=== PATIENT | female | born 1995 | race African-American/Black ===

== ENCOUNTER 2024-01-29 18:21 | Emergency (ER) | payer BC, SELFPAY ==
[2024-01-29 18:28] VITALS: BP 149/95
[2024-01-29 18:51] LABS: % Basophils 0.2 % (0-2); % Eosinophils 0.1 % (0-6); % Immature Granulocytes 0.3 % (0-0.5); % Lymphocytes 11.3 % (20.5-51.1); % Monocytes 6.8 % (1.7-9.3); % Neutrophils 81.3 % (42.2-75.2); Absolute Lymphocytes 1.4 10^3/uL (1.2-3.4); Absolute Monocytes 0.8 10^3/uL (0.1-0.6); Hemoglobin 11.3 g/dL (12.0-16.0); Mean Corp Hgb Conc. 33.2 g/dL (33.0-37.0); Mean Corpuscular Hgb 24.9 pg (27.0-31.0); Mean Corpuscular Volume 75.1 fL (81.0-99.0); Mean Platelet Volume 9.7 fL (7.4-10.4); Nucleated Red Blood Cells % 0 %; Platelet Count 311 10^3/uL (130-400); Red Blood Cell Count 4.53 10^6/uL (4.20-5.40); Red Cell Dist. Width 15.5 % (11.5-14.5); White Blood Cell Count 12.3 10^3/uL (4.8-10.8)
[2024-01-29 19:05] LABS: HCG, Serum Qualitative Screen Negative
[2024-01-29 19:12] LABS: ALT (SGPT) 20 U/L (0-35); AST (SGOT) 27 U/L (14-36); Albumin 4.7 g/dl (3.5-5.0); Alkaline Phosphatase 104 U/L (38-126); Blood Urea Nitrogen 17 mg/dl (7-17); Calcium 9.8 mg/dl (8.4-10.2); Carbon Dioxide 27 mmol/L (22-30); Chloride 93 mmol/L (98-107); Glucose 279 mg/dl (70-99); Lipase 85 U/L (23-300); Sodium 135 mmol/L (135-145); Total Protein 7.4 g/dl (6.3-8.2); eGFR > 60.00
[2024-01-29 20:43] VITALS: BP 127/89
--- NOTE | 2024-01-29 21:57 | ED.GENMED ---
History of Present Illness
General
Chief Complaint: Abdominal Pain
Source: patient
Exam Limitations: none
Time Seen by Provider: 01/29/24 20:59
History of Present Illness
History of Present Illness:
This is a 28 year old female that comes in with c/o vomiting. States that she has been vomiting since . States that she has left sided abd pain. States that she had chills, some SOB, abd pain, headache. Denies any fever, chest pain,
diarrhea, dizziness, urinary burning.
Past History
Past History
ED Past Medical History: IDDM, Psychiatric (Anxiety) and Other (Gastritis)
ED Past Surgical History: Other (Adenoidectomy)
Social History
Tobacco: Non-smoker
Alcohol: Occasional
Drug: Marijuana (daily)
Personal:
Living: with family
Employment: Employed
Family History
Family History: Diabetes
Review of Systems
Review of Systems
All Other Systems: ROS reviewed and negative except as documented in HPI and ROS
Constitutional: Reports chills; Denies fever
EENT: Reports no symptoms
Respiratory: Reports trouble breathing (Slight)
Cardiac: Reports no symptoms
ABD/GI: Reports abdominal pain, nausea and vomiting; Denies diarrhea
: Reports no symptoms; Denies dysuria, frequency or urgency
Musculoskeletal: Reports no symptoms
Skin: Reports no symptoms
Neurological: Reports headache; Denies dizzy
Psychiatric: Reports no symptoms
Phy Exam
General Physical Exam
General Presentation: no apparent distress
General age: appears stated age
General Skin: warm and dry
General Habitus: normal
General Mental: alert
General Hydration: appears well hydrated
ENT Exam
ENT Exam: TM's normal, pharynx normal and neck supple
Eye Exam
Eye Exam: EOMI
Cardiovascular Exam
Cardiovascular Exam: regular rate/rhythm, no edema, no murmur and normal peripheral pulses
Pulmonary Exam
Pulmonary Exam: lungs clear, no respiratory distress, no rales, chest non tender, no crackles, no rhonchi, no wheezing and no cough
Gastrointestinal Exam
Gastrointestinal Exam: normal bowel sounds, soft, no organomegaly, no pulsatile mass, non distended and tender (left sided abd tenderness with palpation)
Musculoskeletal Exam
Musculoskeletal Exam: full ROM and no edema
Skin Exam
Skin Exam: normal color, warm/dry, no rash and no petechia
Psychiatric Exam
Psychiatric Exam: normal mood/affect
Course
Orders/Labs/Results
Orders:
Orders
01/29/24 18:30
Test Result ONCE
01/29/24 18:42
Complete Blood Count/With Diff Urgent
Comprehensive Metabolic Panel Urgent
HCG, Serum Qualitative Screen Urgent
Comment: Notify provider if positive test present
Lipase Urgent
01/29/24 21:56
0.9% Sodium Chloride 1000 ml [Nss] 1,000 ml IV BOLUS
Iohexol [Omnipaque] See Protocol PO NOW STA
Ketorolac [Toradol] 30 mg IV NOW STA
US Pelvis W Transvag Combined Urgent
Reason For Exam: right lower abd pain
01/29/24 21:57
Urinalysis Reflex To Culture Urgent
Date Specimen was Collected: 01/30/24
Time Specimen was Collected: 01:05
Ondansetron Injectable [Zofran] 4 mg IV NOW STA
01/29/24 22:23
COVID-19 Antigen Urgent
Source: Nasal Swab
01/30/24 00:00
CT Abd/pel W Iv And Oral Contr Urgent
Reason For Exam: Right lower abd pain
01/30/24 01:08
Urine Microscopic Reflex Cult Urgent
Urine Culture Urgent
SHARONA Source: U
Specimen Description:
Date Specimen was Collected: 01/30/24
Time Specimen was Collected: 01:05
Abnormal Lab Results
01/29/24 01/30/24
18:42 01:08
WBC 12.3 H 10^3/uL
(4.8-10.8)
Hgb 11.3 L g/dL
(12.0-16.0)
Hct 34.0 L %
(37.0-47.0)
MCV 75.1 L fL
(81.0-99.0)
MCH 24.9 L pg
(27.0-31.0)
RDW 15.5 H %
(11.5-14.5)
Absolute Neuts (auto) 10.0 H 10^3/uL
(1.4-6.5)
Absolute Monos (auto) 0.8 H 10^3/uL
(0.1-0.6)
Neutrophils % 81.3 H %
(42.2-75.2)
Lymphocytes % 11.3 L %
(20.5-51.1)
Chloride 93 L mmol/L
(98-107)
Glucose 279 H mg/dl
(70-99)
Urine Ketones 2+ A
(Negative)
Ur Occult Blood Reflex 1+ A
(Negative)
Urine RBC 3-6 A /HPF
(0-2)
Urine Bacteria (Reflex) Moderate A
(Negative)
Urine Albumin (Reflex) 1+ A
(Neg - Trace)
01/29/24 18:42
01/29/24 18:42
Leukocytosis, H/H slightly low. Anemia, Chloride low. Hyperglycemia. lipase 85, HCG negative. COVID negative. Urine is negative for infection.
Vital Signs
Initial and Last Documented VS:
Initial Vital Signs
Temp Pulse Resp BP Pulse Ox
99.2 F 80 16 149/95 100
01/29/24 18:28 01/29/24 18:28 01/29/24 18:28 01/29/24 18:28 01/29/24 18:28
Last Documented Vital Signs
Temp Pulse Resp BP Pulse Ox
98.4 F 65 18 120/68 99
01/30/24 00:49 01/30/24 00:49 01/30/24 00:49 01/30/24 00:49 01/30/24 00:49
MDM/Problems Addressed
Differential Diagnosis Includes:
Diverticulitis, Ruptured ovarian cyst. Cyclical vomiting
MDM/Problems Addressed:
This is a 28 year old female that comes in with c/o vomiting since . States that she also has left sided abd pain.
will check labs. US pelvis and get CT if needed. Will given IV fluids, urine and Medicate for pain.
Back into see patient. Explained that her Ultrasound and CT scan are normal. Patient blood work shows some anemia. Explained that there is what appears to be Cystitis of the bladder that can cause abd pain. Patient to follow up with the family
doctor. Patient to increase her water intake to 8-8oz glasses daily. Return with any concerns.
Chronic conditions affecting care:
Marijuana use
Chronic conditions affecting care: DM
Acute Exacerbation and/or Progression of Chronic Illness: DM
*Radiology
Radiology exam reviewed: radiology read reviewed (US night hawk-Normla appearance of the uterus. Normal endometrial stripe, measuring 5mm in thickness. Normal bilaterl ovaries which contain small physiologic follicles. Both ovaries demonstrate
arterial and venous Doppler flow. No appreciable free fluid or adnexal masses. CT scan- Appearance ), all reviewed NAD by ED Provider (CT cont- diffuse bladder wall thickening, possibly artifactual, but which could be related to UTI/cystitis if
clinically commensurate. Chronic cortical scarring of the right kidney, grossly stable from prior study. Bilateral kidneys are otherwise unremarkable with normal symmetric enhancement. No ) and other (CT cont-no Hydronephrosis. Grossly normal
appendix. No intestinal obstruction or free air. Incidental small probable cyst or hemangioma in the right hepatic lobe. Unremarkable gallbladder, pancreas, and spleen. )
*Pulse Oximetry
Patient hypoxic: no
*EKG
Interpreted by ED Provider?: NA
Rate: EKG- N/A
*Web Ui Designer Interpretation
Rate: Web Ui Designer- N/A
*Critical Care Note
Total Time (30-74mins, 75-104mins- exclusive of procedures): Not Applicable
ED Attending Note
-
Portions of this chart may have been created with voice recognition software.� Occasional wrong word or��sound alike� substitutions may have occurred due to the inherent limitations of voice recognition software.
Discharge Plan
Departure
Patient Disposition: Home (Routine Discharge)
Date of Disposition: 01/30/24
Time of Disposition: 02:05
Patient with high blood pressure during this ER visit?: No
Condition: Good
Covid-19: Negative COVID-19
Discharge Problem:
Abdominal pain
Instructions: Abdominal Pain
Prescriptions:
No Action
albuterol sulfate 1 PUFF HFA aerosol inhaler
1 puff inhalation R QID PRN (Reason: difficulty breathing) Qty: 1 0RF
insulin glargine [Basaglar KwikPen U-100 Insulin] 100 UNIT/ML insulin pen
18 unit SQ HS
insulin aspart U-100 [Novolog FlexPen U-100 Insulin] 300 UNITS/3 ML insulin pen
0 units SC MEALS
ondansetron 4 MG tablet,disintegrating
4 mg PO TIDPRN PRN (Reason: nausea/vomiting) Qty: 12 0RF
prochlorperazine maleate [Compazine] 10 mg tablet
10 mg PO Q8H PRN (Reason: nausea and vomiting) Qty: 10 0RF
ondansetron 4 mg tablet,disintegrating
4 mg PO TIDPRN PRN (Reason: nausea/vomiting) Qty: 20 0RF
ondansetron 4 mg tablet,disintegrating
4 mg PO Q8H PRN (Reason: nausea and vomiting) Qty: 10 0RF
ondansetron 8 mg tablet,disintegrating
8 mg PO TID PRN (Reason: nausea and vomiting) Qty: 30 0RF
promethazine 25 mg tablet
25 mg PO Q6H PRN (Reason: nausea and vomiting) Qty: 20 0RF
ondansetron 4 mg Tablet,Disintegrating
4 mg PO TIDPRN PRN (Reason: nausea/vomiting) Qty: 12 0RF
Referrals:
Jennie Duque CRNP [Family Provider] - Call in 1-3 days for appt
Activity Restrictions/Additional Instructions:
As discussed, your blood work shows that you are anemic. Your white blood cell count is slightly elevated. Your urine is negative for infection and your are negative for COVID. Your Ultrasound and Ct scan are negative for any acute process. Please
follow up with the family doctor for recheck. Please increase your water intake to 8-8oz glasses daily. Tylenol or Ibuprofen for pain. IF YOU HAVE ANY OTHER CONCERNS PLEASE RETURN TO THE EMERGENCY ROOM.
Interventions
Interventions:
*Risk Screen - Suicide Last Done: 01/29/24 22:33
*Neglect/Abuse Screening Last Done: 01/29/24 22:33
EU-Eeuuex-Obomdjzyma Assessment Last Done: 01/29/24 22:33
Discharge Date and Time
Print Language: TURKMEN
[2024-01-29] MEDS: ZOFRAN 4 MG IV (22:17)
[2024-01-29] MEDS: TORADOL 30 MG IV (22:18)
[2024-01-29] MEDS: NSS 1000 IV (22:19)
[2024-01-29] MEDS: OMNIPAQUE 50 ML PO (22:20)
[2024-01-29 22:24] VITALS: BMI 25.4
[2024-01-29 22:25] VITALS: BP 154/99
[2024-01-29 22:58] LABS: COVID-19 Antigen Negative (Negative)
[2024-01-30 00:49] VITALS: BP 120/68
[2024-01-30 01:20] LABS: Urine Albumin 1+ (Neg - Trace); Urine Bilirubin Negative (Negative); Urine Character Clear (Clear); Urine Color Yellow; Urine Glucose Negative (Negative); Urine Ketone 2+ (Negative); Urine Leukocyte Negative (Negative); Urine Nitrite Negative (Negative); Urine Occult Blood 1+ (Negative); Urine Specific Gravity 1.005 (<1.030); Urine Urobilinogen Negative (Neg - 1+); Urine pH 6.5 (5.0-9.0)
[2024-01-30 01:32] LABS: Urine Amorphous Seen; Urine Squamous Cell >30 /LPF (Few)
[2024-01-30 01:33] LABS: Urine Bacteria Moderate (Negative)
[2024-01-30 02:15] VITALS: BP 149/79
== END 2024-01-30 02:16 | disposition home or self-care (01) ==
LOC: EMR 18:21
PROVIDERS: Clinical Nurse Specialist Family Health; Emergency Medicine; EMERGENCY PHYSICIAN Emergency Medicine; FAMILY PHYSICIAN Nurse Practitioner Family
DX: R10.9 Unspecified abdominal pain (principal); E11.65 Type 2 diabetes mellitus with hyperglycemia
CPT/HCPCS: 99285; 96374; 96375; 96361; 74177; 76830; 76856; 80053; 81003; 81015; 83690; 84703; 85025; 87086; 87811; Q9967

== ENCOUNTER 2024-04-11 13:33 | Inpatient (IN) | payer BC, SELFPAY ==
[2024-04-11] VITALS (16 sets, daily range): BP systolic 81–107; BP diastolic 36–62; BMI 25.0; BMI 26.1
[2024-04-11 09:47] LABS: Glucose - Point of Care > 600 mg/dl (70-99)
--- NOTE | 2024-04-11 10:12 | ED.GENMED ---
History of Present Illness
General
Chief Complaint: Blood Sugar Problem
Source: patient and spouse
Exam Limitations: none
Time Seen by Provider: 04/11/24 10:02
Nursing documentation reviewed up to this point in time: agreed with
History of Present Illness
History of Present Illness:
28-year-old female presents emergency department due to nausea vomiting and elevated blood sugar. She is a type I diabetic, and last gave herself an insulin bolus at 8:16 AM. She get results 12 units at that time. No fevers.
Past History
Past History
ED Past Medical History: IDDM, Psychiatric (Anxiety) and Other (Gastritis)
ED Past Surgical History: Other (Adenoidectomy)
Social History
Tobacco: Non-smoker
Alcohol: Occasional
Drug: Marijuana (daily)
Personal:
Living: with family
Employment: Employed
Family History
Family History: Diabetes
Phy Exam
Physical Exam
Physical Exam:
Physical Exam
General: no apparent distress, not acutely ill
Neck: supple. no meningeal signs. normal posterior pharynx
Heart: s1/s2 tachycardia, no murmur. equal radial
pulses.
HEENT: Pupils equal round reactive to light, EOMI, dry mucous membranes
Lungs: no acute respiratory distress. clear bilaterally
Abdomen: normal bowel sounds. not tender. no CVAT
Neuro: alert and oriented. no focal neurological deficits cranial nerves II through XII intact
Skin: no rash
Psychiatric: well kept. interactive and cooperative
Extremities: no edema. no calf tenderness. negative homans. good distal pulses
Course
Orders/Labs/Results
Orders:
Orders
04/11/24
Electrocardiogram (*1) Stat
Comment: DONE EMR
04/11/24 09:29
Electrocardiogram (*1) Urgent
Reason for Study: Chest Pain
EKG- Treatment ONCE
04/11/24 10:04
EKG- Treatment ONCE
0.9% Sodium Chloride 1000 ml [Nss] 1,000 ml IV BOLUS
Pulse Ox/cont/shift [RESP] Stat
Quantity: 1
04/11/24 10:05
Cardiac Monitoring- Treatment ONCE
IV Insert/Care/Rem.- Treatment PRN
04/11/24 10:16
Lactated Ringers [Lr] 1,000 ml IV BOLUS
04/11/24 10:20
0.9% Sodium Chloride 1000 ml [Nss] 1,000 ml IV BOLUS
04/11/24 10:30
B-Hydroxybutyrate Urgent
Complete Blood Count/With Diff Urgent
Comprehensive Metabolic Panel Urgent
Ferritin Urgent
Comment: ADD
Folate Urgent
Comment: ADD
Iron Urgent
Lactic Acid Urgent
Manual Differential Urgent
Total Iron Binding Urgent
Venous Blood Gas Urgent
%Oxygen/Room Air: 100 ra
Vitamin B12 Urgent
Comment: ADD
04/11/24 11:19
Urinalysis Reflex To Culture Urgent
Date Specimen was Collected: 04/11/24
Time Specimen was Collected: 11:13
Urine Microscopic Reflex Cult Urgent
04/11/24 12:02
Insulin Human Regular [Novolin R] 7 units IV NOW STA
04/11/24 12:31
Reg Insulin 100 Units/100 ml [Novolin R Insulin Infusion] 100 units in 100 ml IV NOW
04/11/24 12:43
Add On- LAB Urgent
Tests Added?: ferritin, iron, tibc, folate, b12
04/11/24 12:45
CR Chest - 2 Views Urgent
Comment:
Reason For Exam: sepsis
04/11/24 12:57
COVID-19 Antigen Urgent
Source: Nasal Swab
Blood Culture Urgent
SHARONA Source: Blood/Venous
Specimen Description:
04/11/24 13:06
Hemetest Stools As Directed
04/11/24 13:07
CT Abd/pelvis Wo Iv Cont Urgent
Comment:
Reason For Exam: abd pain sepsis hypotension
Abnormal Lab Results
04/11/24 04/11/24 04/11/24
09:44 10:30 11:19
WBC 32.8 H 10^3/uL
(4.8-10.8)
RBC 3.35 L 10^6/uL
(4.20-5.40)
Hgb 8.6 L g/dL
(12.0-16.0)
Hct 26.8 L %
(37.0-47.0)
MCV 80.0 L fL
(81.0-99.0)
MCH 25.7 L pg
(27.0-31.0)
MCHC 32.1 L g/dL
(33.0-37.0)
RDW 17.4 H %
(11.5-14.5)
MPV 11.2 H fL
(7.4-10.4)
Abs Neuts (Manual) 23.6 H 10^3/uL
(1.4-6.5)
Band Neutrophils 8 H %
(0-3)
Lymphocytes (Manual) 9 L %
(20-51)
Monocytes (Manual) 15 H %
(2-9)
VBG pH 7.31 L
(7.32-7.43)
VBG pCO2 29 L mmHg
(35-48)
VBG pO2 59 H mmHg
(30-50)
VBG HCO3 14.6 L mmol/L
(22-27)
Sodium 129 L mmol/L
(135-145)
Chloride 86 L mmol/L
(98-107)
Carbon Dioxide 13 L* mmol/L
(22-30)
BUN 42 H mg/dl
(7-17)
Creatinine 1.7 H mg/dL
(0.6-1.0)
Glucose 1008 H* mg/dl
(70-99)
Lactic Acid 6.0 H* mmol/L
(0.7-2.0)
AST 37 H U/L
(14-36)
Total Protein 6.0 L g/dl
(6.3-8.2)
Urine Ketones Trace A
(Negative)
Ur Occult Blood Reflex 3+ A
(Negative)
Urine RBC 11-15 A /HPF
(0-2)
Urine Glucose 3+ A
(Negative)
POC Glucose > 600 H* mg/dl
(70-99)
04/11/24 10:30
04/11/24 10:30
Vital Signs
Initial and Last Documented VS:
Initial Vital Signs
Temp Pulse Resp BP Pulse Ox
98.7 F 103 16 97/48 100
04/11/24 09:37 04/11/24 09:37 04/11/24 09:37 04/11/24 09:37 04/11/24 09:37
Last Documented Vital Signs
Temp Pulse Resp BP Pulse Ox
98.7 F 98 25 102/36 100
04/11/24 09:37 04/11/24 11:15 04/11/24 11:15 04/11/24 11:06 04/11/24 10:30
MDM/Problems Addressed
Differential Diagnosis Includes:
Sepsis, hypovolemia, DKA
MDM/Problems Addressed:
28-year-old female with DKA, unclear etiology. Afebrile. No clear source infection. Insulin drip initiated. IV fluids given. Admit to hospitalist, ICU.
Chronic conditions affecting care: DM
Acute Exacerbation and/or Progression of Chronic Illness: DM
*Pulse Oximetry
Patient hypoxic: no
*EKG
Interpreted by ED Provider?: Yes
EKG Intrepretation Date: 04/11/24
EKG Intrepretation Time: 09:33
Interpretation: abnormal
Comparison EKG: changes noted
Heart Rate: 105
Rate: tachycardiac
Rhythm: sinus tachycardia
[place]: right axis deviation
Interval: normal interval
QRS Pattern: normal QRS
Ischemia: no ischemia
*Harpsichord Maker Interpretation
Rate: tachycardiac
Interpretation: abnormal
Heart Rate: 102
Rhythm: sinus tachycardia
*Critical Care Note
Total Time (30-74mins, 75-104mins- exclusive of procedures): 30
comment:
Critical care statement: A total of 30 minutes of critical care time was provided for this patient. This includes management of unstable vital signs, evaluation of the patient at bedside, reviewing the patient's pertinent medical records, discussion
with consultants, review of old EKGs and review of pertinent medical records. This time with separate from time utilized to perform the aforementioned documented procedures
Data Reviewed
Review of Other/Old Records Reveals: Labs (Prior creatinine 0.8 on 01/29/2024)
Source: records
Patient Management
Social determinants of health affecting care: Living situation, Substance abuse (Marijuana) and Strong social support
Discussion with other providers: Hospitalist
Escalation/DeEscalation of care consider admission/obs:
Admit to ICU indicated
ED Attending Note
-
Portions of this chart may have been created with voice recognition software.� Occasional wrong word or��sound alike� substitutions may have occurred due to the inherent limitations of voice recognition software.
Discharge Plan
Departure
Patient Disposition: Admit
Date of Disposition: 04/11/24
Time of Disposition: 12:04
Admit to: ICU
Presentation/result/management discussed w/ accepting MD/DO: Hospitalist
Patient with high blood pressure during this ER visit?: No
Condition: Fair
Discharge Problem:
DKA, type 1, Hyponatremia, KB (acute kidney injury)
Prescriptions:
No Action
Lisinopril
5 mg PO DAILY
Patient Comments:
no ecw or pharmacy records
Patient Own Insulin Pump
0 unit SC .VIA INSULIN LISPRO
Referrals:
Jennie Duque CRNP [Family Provider] -
Interventions
Interventions:
*Risk Screen - Suicide Last Done: 04/11/24 09:37
*General Assessment Last Done: 04/11/24 09:37
*Neglect/Abuse Screening Last Done: 04/11/24 09:37
ED- Fall Risk Assessment Last Done: 04/11/24 10:27
*ED COVID-19 Vaccine History Last Done: 04/11/24 09:37
ED- Neurological Assessment Last Done: 04/11/24 10:27
Discharge Date and Time
Print Language: UKRAINIAN
[2024-04-11] MEDS: NSS 1000 IV (10:20)
--- NOTE | 2024-04-11 10:41 | EDRN ---
NSS bolus started prior to order being d/c'd. Spoke to and will continue NSS then give LR.
[2024-04-11 10:42] LABS: Venous Blood Gas B.E. -10.5 mmol/L (-4 to +4); Venous Blood Gas HCO3 14.6 mmol/L (22-27); Venous Blood Gas pCO2 29 mmHg (35-48); Venous Blood Gas pH 7.31 (7.32-7.43); Venous Blood Gas pO2 59 mmHg (30-50)
[2024-04-11 10:48] LABS: Hematocrit 26.8 % (37.0-47.0); Hemoglobin 8.6 g/dL (12.0-16.0); Mean Corp Hgb Conc. 32.1 g/dL (33.0-37.0); Mean Corpuscular Hgb 25.7 pg (27.0-31.0); Mean Platelet Volume 11.2 fL (7.4-10.4); Platelet Count 251 10^3/uL (130-400); Red Blood Cell Count 3.35 10^6/uL (4.20-5.40); Red Cell Dist. Width 17.4 % (11.5-14.5)
[2024-04-11 11:24] LABS: ALT (SGPT) 27 U/L (0-35); AST (SGOT) 37 U/L (14-36); Alkaline Phosphatase 109 U/L (38-126); Blood Urea Nitrogen 42 mg/dl (7-17); Calcium 8.4 mg/dl (8.4-10.2); Chloride 86 mmol/L (98-107); Estimated Creatinine Clearance 43 ml/min; Potassium 5.1 mmol/L (3.5-5.1); Sodium 129 mmol/L (135-145); Total Bilirubin 0.8 mg/dl (0.2-1.3); eGFR 41.89
[2024-04-11 11:26] LABS: Carbon Dioxide 13 mmol/L (22-30); Glucose 1008 mg/dl (70-99)
[2024-04-11 11:34] LABS: Urine Albumin Negative (Neg - Trace); Urine Bilirubin Negative (Negative); Urine Character Clear (Clear); Urine Color Yellow; Urine Glucose 3+ (Negative); Urine Ketone Trace (Negative); Urine Leukocyte Negative (Negative); Urine Nitrite Negative (Negative); Urine Occult Blood 3+ (Negative); Urine Urobilinogen Negative (Neg - 1+)
[2024-04-11 11:36] LABS: White Blood Cell Count 32.8 10^3/uL (4.8-10.8)
[2024-04-11 11:37] LABS: Absolute Neutrophils -Man Diff 23.6 10^3/uL (1.4-6.5); Band Neutrophils 8 % (0-3); Lymphocytes 9 % (20-51); Monocytes 15 % (2-9); Myelocytes 1 % (-); Segmented Neutrophils 64 % (42-75)
[2024-04-11 11:38] LABS: Total Cells Counted 100
[2024-04-11 11:44] LABS: Normal RBC Morphology Yes; Platelets Checked Yes
[2024-04-11 12:11] LABS: Urine Amorphous Seen
[2024-04-11 12:13] LABS: Urine White Cell 0-2 /HPF (0-5)
[2024-04-11] MEDS: NOVOLIN R 7 UNITS IV (12:17)
[2024-04-11] MEDS: LR 1000 IV (12:30)
[2024-04-11] MEDS: NOVOLIN R INSULIN INFUSION 100 IV (12:31)
--- NOTE | 2024-04-11 12:41 | HPS.HSE ---
Addendum entered and electronically signed by MAGY Jordan 04/11/24 20:24:
Acute infectious colitis
Diarrhea resolved Tuesday evening on 04/09/2024
IV vancomycin ,IV Zosyn
--Would check stool studies if diarrhea returns--
CT abdomen pelvis:
Suspected diffuse colonic wall thickening greatest at the cecum and ascending colon.
Severe hepatic steatosis
Addendum entered and electronically signed by MAGY Jordan 04/11/24 13:24:
IV FLUIDS
-IV NSS WITH 20 KCL at 150 cc/hr per inuslin protocol
Original Note:
Family Physician
-
Family Physician: MAGY Layton
Chief Complaint
-
vomiting , confusion ,headache, blurry vision, dry mouth, increased thirst, urinary frequency, myalgias including entire body, hips
History of Present Illness
28-year-old female from home complaining of 2 days of vomiting along with her OmniPod alarming high. She also reports headache, blurry vision, dry mouth, increased thirst, urinary frequency, myalgias including entire body and mainly in her hip
areas. She has generalized abdominal pain increased with palpation. She also reports she had slimy diarrhea 7 episodes on Tuesday and 7 episodes on Tuesday then that resolved and she started vomiting. She and her partner went out on Tuesday ate at a
[place] buffet but no raw fish or seafood, Tuesday she had a buffalo chicken cheese steak. Her partner denies any of the same symptoms. She also reports she has been on 5 mg of lisinopril for approximately 1.5 years , Although she did not report
this in her January emergency room visit. There is no family history of colitis, IBS, Crohn's, colon disease.
She is awake and alert however forgetting conversations during my exam asking repetitive questions. She denies fever, chills, chest pain, palpitations, shortness breath, cough, diarrhea, rash. Her partner is at bedside with her confirming the
symptoms and complaints are correct. She tells me she replaced her OmniPod this morning due to it alarming high. When I reviewed her alarm it appears she has received approximately 16 units of insulin total since this a.m. Her typical rate is
0.7/h then drops down to 0.5/h. She has been a diabetic since age 18, with history of DKA admissions, smokes occasional marijuana jimenez has occasional alcohol, iron deficiency anemia, hyponatremia, cyclical vomiting with history of marijuana use
Medical History
Past Medical History
Past Medical History: Reports Other
Additional Past Medical History:
DM type I since age 18
Cyclical vomiting with history of marijuana use
Iron deficiency anemia
Anxiety
HTN
Hx ruptured ovarian cyst 12/23/2020
History of heavy menses
Past Surgical History: Reports Other
Additional Past Surgical History:
Adenoidectomy age 5
Social History
Alcohol: Occasional (Last drink was on Tuesday)
Drug: Marijuana (Daily smokes marijuana jimenez)
Personal: Partner (Female at bedside)
Living: With Family
Employment: Employed
Family History
Family History: Other (No family history of colitis, gas, Crohn's)
Allergies / Home Medications
Allergies reflects when Allergies were last updated in [facility].
Home Medications with original date entered in [facility]
Allergy/Medication List:
Allergies
Allergy/AdvReac Type Severity Reaction Status Date / Time
nickel Allergy Unknown Rash Verified 04/11/24 09:41
Home Medications
Lisinopril 5 mg PO DAILY Blood Pressure 04/11/24
Patient Own Insulin Pump 0 unit SC .VIA INSULIN LISPRO Diabetes 04/11/24
Review of Systems
-
History Source: Patient and Family (Female partner at bedside)
A 12 point ROS was completed and negative except as noted: Yes
Constitutional: Reports Other (Patient was confused asking repetitive questions); Denies Fever or Chills
EENT: Reports Other (Dry mouth); Denies Sore Throat
Respiratory: Denies Cough or Trouble Breathing
Cardiac: Denies Chest Pain, Diaphoresis, Palpitations or Syncope
Abdomen/GI: Reports Abdominal Pain (Generalized), Nausea, Vomiting and Diarrhea (Diarrhea with slimy like mucus brown in color 7 episodes a day Tuesday and Tuesday); Denies Constipated, Bloody Stools, Black Stools or Anorexia
: Reports Frequency; Denies Dysuria, Flank Pain, Incontinence, Difficulty Voiding, Urgency or Dark Urine
Musculoskeletal: Reports Muscle Pain (Generalized body aches)
Skin: Denies Itching or Rash
Neurological: Reports Headache; Denies Dizzy, Weakness or Numbness
Endocrine: Reports Polyuria and Polydipsia
Hematologic/Lymphatic: Denies Bleeding
Psych: Reports Anxiety
Physical Exam
Vital Signs
Vital Signs
Temp Pulse Resp BP Pulse Ox
98.7 F 98 25 102/36 100
04/11/24 09:37 04/11/24 11:15 04/11/24 11:15 04/11/24 11:06 04/11/24 10:30
Physical Exam
General: Conversant, Pain (Generalized abdominal) and Other (Anxious with confusion yes and repetitive questions); No Chills
HEENT: NormoCephalic, Anicteric, Moist mucous membranes, PERRLA, [place] Conjunctivae, No Ptosis and Neck Nontender
Respiratory: Clear; No Wheezes, Rales or Rhonchi
Cardiac: S1/S2 and Regular Rhythm; No Murmur, Rub, Gallop or Peripheral Edema
Breast: Deferred by me
GI: Soft, Non Distended, Normal Bowel Sounds, Tender (Generalized) and No Hepatosplenomegaly
Rectal: Deferred by Provider
Genito-urinary: Deferred by me
Musculoskeletal: No Clubbing, No Cyanosis and No Edema
Skin: Warm and Dry; No Rash or Jaundice
Neuro: Awake, Alert, Oriented (X 3 but was asking repetitive questions was extremely anxious rolling over from [id number] in bed), No Motor Deficits, Cranial Nerves Intact and No Sensory Deficits; No Slurred Speech, Facial Droop, Tremors or Sedated
Psych: Anxious
Laboratory Results
-
04/11/24 10:30
04/11/24 10:30
Laboratory Results
Lactic Acid 6.0 mmol/L (0.7-2.0) H* 04/11/24 10:30
Total Bilirubin 0.8 mg/dl (0.2-1.3) 04/11/24 10:30
AST 37 U/L (14-36) H 04/11/24 10:30
ALT 27 U/L (0-35) 04/11/24 10:30
Alkaline Phosphatase 109 U/L (38-126) 04/11/24 10:30
Data Reviewed
-
Lab Data: Labs Reviewed by me
Impression/Plan
-
Impression/plan:
Admit to ICU
#DKA
# Acute metabolic acidosis
# Type I diabetic since age 18
BS 1008, lactic acid 6, anion gap 30
-IV insulin 7 units given in ER, START INSULIN GTT with protocol
-Lactated Ringer's 1000 bolus given
-2 L NSS given in ER, then IV NSS 150 cc/hr
-Consult machinist
-Patient's OmniPod was removed at 12:26 PM in the ER from her left buttocks
#Sepsis unclear etiology poss intra-abdominal process given diarrhea with reported mucus-like stool
#Hx of reactive leukocytosis
WBC 32.8, bands 8%, 90 8.7F, HR 98, 104/36
-UA negative
--Check CXR
-COVID swab
-CT abd/ pelvis without contrast due to vomiting /kb
-IV Vanco, Iv Zosyn
#Acute hypotension multifactorial sepsis/vomiting
85/32> 102/36 x 1 L NSS
Total 1000 LR in ER and additional 2 L NSS
-Continue IV NSS 150 cc/h
consider iv levophed if BP not improving with Map>60
#KB due to hypovolemia
Creat 1.7 baseline 0.8
Total 1000 LR in ER and additional 2 L NSS
-Continue IV NSS 150 cc/h
-HOLD LISINOPRIL 5mg daily
follow bmp
#Hyponatremia
NA 129
#Hx cyclical vomiting with history of marijuana use
#Marijuana use smokes marijuana at jimenez
- cessation advised
#Iron deficiency anemia
Hgb 8.6, MCV 80
check iron panel , b12 folate stool occcult
Dvt proph
- sq heparin
full code
--- NOTE | 2024-04-11 13:12 | W.PN.UPDATE ---
Update Note
Progress Note Update
This is an addendum to the H&P written by Pia Fernandez on 04/11/2024. Patient seen and examined independently with BANDING MACHINE OPERATOR.
28-year-old female past medical history of type 1 diabetes at age 18, history of heavy menses, here for diabetic ketoacidosis. With abdominal pain/vomiting and diarrhea concerning for potential GI infection and sepsis. Labs show blood sugar of
thousand, severe anion gap metabolic acidosis, KB.
Belly very tender diffusely.
Treated with normal saline with 20 of potassium. Insulin drip. NPO.
Hemoglobin down from 11.3-8.6 within the past 2 months consistent with iron deficiency anemia. She does have a history of heavy menses. Check fecal occult. Check iron studies, B12 and folate.
[2024-04-11 13:20] LABS: Glucose - Point of Care > 600 mg/dl (70-99)
[2024-04-11 13:29] LABS: COVID-19 Antigen Negative (Negative)
[2024-04-11 13:51] LABS: B-Hydroxybutyrate 4.86 mmol/L (0.02-0.27); Iron 33 ug/dl (37-170); Percent Saturation 9 % (20-50); Total Iron Binding Capacity 357 ug/dl (265-497)
--- NOTE | 2024-04-11 13:59 | CON.INTV ---
Consultation
Consultation Request
Date/Time Consultation Requested: 04/11/2024-2 PM
Date/Time Consultation Performed: 04/11/2024-2:30 PM
Requesting Provider: Hospitalist
Performing Provider: Dr. Boswell
Reason for Consultation: DKA/critical care management
Medical History
-
Chief Complaint: DKA
History of Present Illness:
28-year-old insulin-dependent diabetic female presented with nausea, vomiting, blurry vision, dry mouth, increased thirst, urinary frequency, myalgias and noted to be in DKA requiring ICU admission-sheet rock installer consulted for DKA/critical care
management 04/11/2024.
Past Medical History
Past Medical History: None (Diabetes-type I since age 18. Cyclical vomiting. Marijuana use. Anemia-iron deficiency. Hypertension. Anxiety. Ovarian cyst rupture 12/2020. Heavy menses. Adenoidectomy age 5.)
Social History
Alcohol: Occasional
Drug: Marijuana (Smokes marijuana jimenez)
Personal: Partner
Occupational Exposures: No known asbestos exposure
Environmental Exposures: No known tuberculosis exposure
Family History
Family History: Reviewed & Not Pertinent
Allergies / Home Medications
Allergies
Allergy/AdvReac Type Severity Reaction Status Date / Time
nickel Allergy Unknown Rash Verified 04/11/24 09:41
Home Medications
�Medication �Instructions �Recorded �Confirmed �Last Taken �Type
Lisinopril 5 mg PO DAILY Blood Pressure 04/11/24 04/11/24 04/08/24 10:00 History
Patient Own Insulin Pump 0 unit SC .VIA INSULIN LISPRO 04/11/24 04/11/24 04/11/24 History
Diabetes
Review of Systems
-
Unable to Obtain full review of systems at this time due to: Other (Per HPI)
Vitals / Labs / Diagnostic Testing
Vital Signs
Temp Pulse Resp BP Pulse Ox
98.7 F 98 25 102/36 100
04/11/24 09:37 04/11/24 11:15 04/11/24 11:15 04/11/24 11:06 04/11/24 10:30
Lab Data
04/11/24 10:30
04/11/24 10:30
Diagnostic Testing:
Physical Exam
-
Exam:
Well-nourished and well-developed in no apparent distress
HEENT-atraumatic, normocephalic
Neck-supple, no JVD, no bruit
Heart-regular rate and rhythm-no murmurs, rubs or gallops
Chest-clear to auscultation, no wheezes, crackles
Back-no tenderness
Abdomen-soft, nontender, nondistended, no hepatosplenomegaly
Extremities-no cyanosis, clubbing, edema and good peripheral pulses
Integument-intact, no rashes, lesions or ecchymosis
Neurology-alert and oriented, nonfocal motor and sensory exam
Assessment
-
28-year-old insulin-dependent diabetic female presented with nausea, vomiting, blurry vision, dry mouth, increased thirst, urinary frequency, myalgias and noted to be in DKA requiring ICU admission-sheet rock installer consulted for DKA/critical care
management 04/11/2024.
Diabetic ketoacidosis
Initial blood sugar-1008
Anion gap-30
VBG 04/11/24-20 7.31
Leukocytosis
Qkoagb-eqegmubmnu-wwqdlbuvjc 8.6
Anion gap metabolic acidosis
Lactic acidosis
KB-suspect prerenal
Diarrhea
Sepsis
Conditions present prior to admission:
Diabetes-type I since age 18.
Cyclical vomiting.
Marijuana use.
Anemia-iron deficiency.
Hypertension.
Anxiety.
Ovarian cyst rupture 12/2020.
Heavy menses.
Adenoidectomy age 5
Plan
Patient will be admitted to medical intensive care unit for close monitoring
Supplemental oxygen as needed
Incentive spirometry
Aspiration precautions
Monitor blood sugar
Monitor anion gap
Insulin drip
Check A1c if not done in the last 3 months
Diabetic nurse practitioner consultation
Intravenous fluid resuscitation
Monitor potassium closely and replace appropriately
Monitor renal function
If renal function does not improve with fluid hydration then nephrology consultation
Tylenol as needed for pain
She was requesting Toradol-would avoid with renal failure
Morphine if needed
Check cultures
Empiric antibiotics-vancomycin and Zosyn initiated
Serial abdominal exam
CT abdomen and pelvis-pending
Follow leukocytosis
Marijuana smoking cessation counseling ongoing
DVT prophylaxis
Early nutrition
Early mobilization
Critical care statement: A total of 55 minutes of critical care time was provided for this patient today. This includes management of unstable vital signs, insulin drip management, evaluation of the patient at bedside, reviewing the patient's
pertinent medical records including radiographs, microbiology, laboratory evaluations, and discussion with primary team, consultants, charge nurse, and critical care nursing.
Diagnostic data:
Chest x-ray 08/16/2021-NAD
Chest x-ray 04/11/2024-NAD
CT abdomen and pelvis 01/30/2024-diffuse wall thickening of the urinary bladder may be related to nondistention or cystitis, no intestinal obstruction, bowel inflammation, nephrolithiasis, hydronephrosis, cholecystitis or abscess formation
Data Reviewed
-
EKG: Report reviewed by me
Radiology: Image personally visualized and interpreted and Report reviewed by me
CT Scan: Report reviewed by me
Medical Tests (Nuc Med, Echo etc): Report reviewed by me
Labs: Labs reviewed by me
Old Records: Reviewed
Critical Care Time (in minutes): 55
--- NOTE | 2024-04-11 14:47 | W.PN.INTV ---
Documented by User: Tiara Montoya MD, Resident 04/11/24 16:21
Today's Communication / Plan
Recommendations
IV normal saline with 20 KCl per DKA protocol
Insulin gtt
Monitor BMPs
Broad spectrum antibiotics
CT ab/pelvis pending
Assessment
-
28-year-old female with past medical history of insulin-dependent type 1 diabetes presented to the ED with nausea, vomiting, diarrhea, dry mouth, blurry vision, headache, increased thirst, increased frequency of urination, heartburn, body aches all
over, and tingling all over. She has an OmniPod which set off an alarm this morning. Appears she received approximately 16 units of insulin total this am. Typical rate 0.7/hr then drops down to 0.5/hr. She had about 7 episodes of diarrhea on Tuesday
and 7 episodes on Tuesday but resolved. She described the diarrhea as slimy or mucousy 'like an orbie cut in half.' On Tuesday she started throwing up, too many times to count. Stopped around 4:30 AM. Since then she has not eaten anything. 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 She ate at a [employer] buffet on Tuesday and had a buffalo cheesecake on Tuesday, but her partner had no similar symptoms. She
thought that some of her issues may be related to her high blood pressure and wanted to schedule an emergency doctors appointment with her primary provider MAGY Duque, but her mom advised her to come to the ED instead. Her grain miller helper
is Dr. Marcela Maki.
Labs revealed blood glucose 1008, anion gap 30, lactic acid 6, WBC 32.8, hemoglobin 8.6. Patient received 7 units of insulin in ED, started on insulin drip, 1000 mL bolus of LR, 2x 1000 mL bolus of normal saline, and started on Zosyn and vanc.
Impression:
#DKA
#Metabolic acidosis
#Type 1 Diabetes
BG 1008
AG 30
LA 6
#Sepsis secondary to GI source
#leukocytosis with bandemia
#Hypotension
#Hyponatremia
#Anemia
#KB
Conditions present prior to admission: Type 1 diabetes, Cannabis hyperemeses syndrome , Ruptures ovarian cyst 12/23/2020, hx Heavy mensus , OFELIA, HTN, anxiety
Plan:
Respiratory
-Keep SpO2 >92% - supplemental O2 as needed
-Aspiration precautions
-pCO2 compensated for metabolic acidosis
-Repeat VBG in am
Endocrinology
-DKA on type 1 DM
-Metabolic acidosis
-BG 1008, AG 30, LA 6
-Admit to ICU
-NPO
-IV NSS with 20 KCL at 150 cc/hr per insulin protocol
-Keep urine output >50 cc/hr
-Regular insulin 7 unit bolus in ED -> insulin gtt 7 U/hr
-Adjust gtt to decrease glucose by 75-100 mg/dL per hr
-When HCO3 >16 or AG <16, add D5W + CUH05oys/L to IVF
-Accucheck Q1hr
-BMP q4hr
-EKG in am
-Replete electrolytes as needed
-Tylenol for pain. Consider hydromorphone if severe rather than morphine due to KB
-PRN zofran for N/V
-Keep SpO2 >92%
-Strict I&O
-If BG <100, use D10% at 50cc/hr while on insulin gtt
-Change to SQ insulin when AG is normal. D/C insulin IV gtt 2 hours after the first SQ dose
-Check hgA1c
Cardiovascular
-Sepsis with unclear etiology likely GI with hx mucous-y stools/diarrhea
-Leukocytosis with bands
-Hypotension
-WBC 32.8, Neutrophil bands 8.6, HR 98, BP 104/36
-UA (-), Covid (-), Chest x-ray no acute cardiopulm etiologies
-CT abd/pelvis without contrast due to KB and vomiting pending
-Vanco and zosyn
-Monitor WBC
-1000 LR in ED and 2L NSS
-IV fluids per DKA protocol
-t/c levophed if BP not improving
-Hold lisinopril
-Iron deficiency anemia
-hg 8.6, MCV 80
-Check hemeoccult blood
-Iron panel pending
-Hx of heavy periods
-Transfuse for hg <7
Renal
-KB likely 2/2 hypovolemia
-Cr 1.7, baseline 0.8
-Hold lisinopril
-Fluids per DKA protocol
-Avoid NSAIDs/nephrotoxic agents
GI
-Ab/pelvic CT pending
-Diffuse abdominal tenderness
-PRN zofran for N&V
-Hemeoccult blood test
-DVT SQ heparin
-NPO
-Full Code
-
-
Subjective Dataa
Subjective Data
Date of Service:
Date of Service: April 11, 2024
Review of Systems
General: Fever (n), Sweats (n), Chills, Pain and Elevated Blood Sugar
Cardiopulmonary: Dyspnea (n), Chest Pain (n) and Edema (n)
GI: Abdominal Pain, Nausea, Vomiting and Diarrhea
Neuro: Weakness and Other (tinging)
Objective Data
Data Reviewed
Vital Signs / I&O / Oxygen:
Vital Signs
Temp Pulse Resp BP Pulse Ox
98.7 F 98 25 102/36 100
04/11/24 09:37 04/11/24 11:15 04/11/24 11:15 04/11/24 11:06 04/11/24 10:30
SaO2 100
Physical Exam
General: Comfortable
HEENT: Normocephalic
Cardiovascular: S1-S2 and Other (Tachy)
Respiratory: Clear
GI: Soft, Non Distended, Tender (Diffusely tender) and Normal Bowel Sounds
Neurology: AO x 3
Skin: Warm
Labs/Micro/Reports
Lab Data
04/11/24 10:30

Documented by User: Alexis Boswell MD 04/11/24 16:21
Today's Communication / Plan
Recommendations
IV normal saline with 20 KCl per DKA protocol
Insulin gtt
Monitor BMPs
Broad spectrum antibiotics
CT ab/pelvis pending
I reviewed this patients case independently and in conjunction with the resident. I personally examined the patient. Patient's complex medical history, laboratory evaluations, events over the last 24 hours, radiographs, microbiological data were
all personally reviewed.
Agree with documented assessment and plan
Alexis Boswell MD, [facility], [facility]
[2024-04-11] MEDS: ZOSYN 50 IV ×2 (14:48→21:31)
[2024-04-11 15:01] LABS: Blood Urea Nitrogen 49 mg/dl (7-17); Calcium 7.5 mg/dl (8.4-10.2); Carbon Dioxide 10 mmol/L (22-30); Chloride 93 mmol/L (98-107); Estimated Creatinine Clearance 41 ml/min; Potassium 3.9 mmol/L (3.5-5.1); Sodium 129 mmol/L (135-145); eGFR 39.11
[2024-04-11 15:13] LABS: Glucose 766 mg/dl (70-99)
[2024-04-11 15:15] LABS: Glucose - Point of Care > 600 mg/dl (70-99)
[2024-04-11 15:24] LABS: HCG, Serum Qualitative Screen Negative
[2024-04-11] MEDS: VANCOCIN 540 MG IV (15:31)
[2024-04-11 16:05] LABS: Glucose 676 mg/dl (70-99)
[2024-04-11] MEDS: NSS with KCL 20 MEQ 1000 IV ×2 (16:08→21:32)
[2024-04-11] MEDS: TYLENOL 650 MG PO ×2 (16:09→21:29)
--- NOTE | 2024-04-11 16:25 | PHA.VAN.IN ---
Assessment
- Assessment
Renal Function: Appears elevated from baseline (~0.7)
Concomitant Antimicrobials: piperacillin/tazobactam
Plan
- Plan
Initial / Loading Dose: vanc 2000mg administered in ED @ 1531
Maintenance Regimen: dosing by level
Monitoring: random level 04/12 0600
Pharmacokinetics Vancomycin I
- -
Patient Age: 28
Patient Sex: Female
Vancomycin Day #: 1
Indication: Gi / Intra-Abdominal
Requesting Provider: Pia Fernandez
Pertinent Antimicrobial Allergies:
no pertinent antimicrobial allergies
Height / Weight:
Height 5 ft 4 in
Actual Weight 68.9 kg
- Vital Signs / Lab Results
Temp Pulse Resp BP Pulse Ox
99.1 F 108 28 99/44 100
04/11/24 16:19 04/11/24 15:32 04/11/24 15:32 04/11/24 15:32 04/11/24 15:32
Lab Results - Hematology
04/11/24
10:30
WBC 32.8 H
Band Neutrophils 8 H
Lab Results - Chemistry
04/11/24 04/11/24
10:30 14:25
BUN 42 H 49 H
Creatinine 1.7 H 1.8 H
Estimated Creat Clear 43 41
Albumin 4.0
04/11/24
10:30
Lactic Acid 6.0 H*
Lab Results - Urine
04/11/24
11:19
Urine Nitrite (Reflex) Negative
Leukocyte Esterase Rfl Negative
Urine WBC (Reflex) 0-2
Ur Squamous Epith Cells 3-5
[2024-04-11 16:30] LABS: Ferritin 12.7 ng/ml (6.24-137)
[2024-04-11 17:01] LABS: Folate 10.5 ng/ml (2.76-20)
[2024-04-11 17:20] LABS: Glucose - Point of Care 562 mg/dl (70-99)
[2024-04-11 17:59] LABS: Vitamin B12 498 pg/ml (239-931)
[2024-04-11 18:06] LABS: Glucose - Point of Care 535 mg/dl (70-99)
[2024-04-11 18:21] LABS: Blood Urea Nitrogen 55 mg/dl (7-17); Calcium 7.6 mg/dl (8.4-10.2); Carbon Dioxide 20 mmol/L (22-30); Chloride 99 mmol/L (98-107); Estimated Creatinine Clearance 46 ml/min; Glucose 497 mg/dl (70-99); Potassium 3.8 mmol/L (3.5-5.1); Sodium 133 mmol/L (135-145); eGFR 45.05
--- NOTE | 2024-04-11 19:00 | PTCARENOTE ---
Pt admitted to ICU bed 3365 from ED with insulin gtt infusing at 7 units/hr. Pt reports general pain. Tylenol given. IVF started per order.
Sinus rhythm to sinus tach. SpO2 95-100% on room air. Lungs CTA. Slightly tachypneic. Denies SOB. Denies nausea at this time. Reports diarrhea yesterday. OOB the BSC with steady gait. Urine dark abhinav.
[2024-04-11 19:12] LABS: Glucose - Point of Care 464 mg/dl (70-99)
--- NOTE | 2024-04-11 20:00 | PTCARENOTE ---
On assessment pt AAOX3, denies pain and SOB, drowsy but arousable, SR/ST on the monitor, RA 95%, NPO, insulin gtt infusing per order, on menses, call garcia in reach.
[2024-04-11] MEDS: ZOFRAN 4 MG IV (20:06)
[2024-04-11 20:26] LABS: Glucose - Point of Care 350 mg/dl (70-99)
[2024-04-11 21:18] LABS: Glucose - Point of Care 260 mg/dl (70-99)
[2024-04-11] MEDS: HEPARIN 5000 UNITS SC (21:30)
[2024-04-11 21:44] LABS: Blood Urea Nitrogen 57 mg/dl (7-17); Calcium 7.7 mg/dl (8.4-10.2); Carbon Dioxide 21 mmol/L (22-30); Chloride 105 mmol/L (98-107); Estimated Creatinine Clearance 49 ml/min; Glucose 214 mg/dl (70-99); Potassium 4.4 mmol/L (3.5-5.1); Sodium 137 mmol/L (135-145); eGFR 48.68
[2024-04-11 22:17] LABS: Glucose - Point of Care 185 mg/dl (70-99)
[2024-04-11] MEDS: D5/0.45%NSS with KCL 20 MEQ 1000 IV (22:20)
[2024-04-11 23:13] LABS: Glucose - Point of Care 144 mg/dl (70-99)
[2024-04-12] VITALS (26 sets, daily range): BP systolic 82–147; BP diastolic 48–98; BMI 26.7
[2024-04-12 00:09] LABS: Glucose - Point of Care 152 mg/dl (70-99)
[2024-04-12] MEDS: COMPAZINE 10 MG IV (00:10)
--- NOTE | 2024-04-12 01:00 | PTCARENOTE ---
pt c/o ABD pain 12/30, STROKE PROGRAM COORDINATOR made aware and placed PRN med, unable to give at this time due to low BP maps in the low 60s, after reassessment pt appears to be sleeping and comfortable at this time. call garcia in reach.
[2024-04-12 01:16] LABS: Glucose - Point of Care 129 mg/dl (70-99)
[2024-04-12] MEDS: D5/0.45%NSS with KCL 20 MEQ 1000 IV ×5 (02:01→21:08)
[2024-04-12] MEDS: ZOSYN 50 IV ×4 (02:02→19:46)
[2024-04-12 02:13] LABS: Glucose - Point of Care 163 mg/dl (70-99)
[2024-04-12 03:14] LABS: Glucose - Point of Care 186 mg/dl (70-99)
[2024-04-12] MEDS: ZOFRAN 4 MG IV ×3 (03:19→19:45)
[2024-04-12] MEDS: DILAUDID 0.25 MG IV ×4 (03:25→19:45)
[2024-04-12 03:56] LABS: Blood Urea Nitrogen 55 mg/dl (7-17); Calcium 7.5 mg/dl (8.4-10.2); Carbon Dioxide 18 mmol/L (22-30); Chloride 107 mmol/L (98-107); Estimated Creatinine Clearance 46 ml/min; Glucose 160 mg/dl (70-99); Potassium 4.8 mmol/L (3.5-5.1); Sodium 139 mmol/L (135-145); eGFR 45.05
[2024-04-12 04:26] LABS: Glucose - Point of Care 202 mg/dl (70-99)
[2024-04-12] MEDS: NOVOLIN R INSULIN INFUSION 100 IV (04:40)
--- NOTE | 2024-04-12 04:52 | PTCARENOTE ---
pt c/o ABD pain 12/30, PRN meds given, call garcia in reach.
[2024-04-12 05:30] LABS: Glucose - Point of Care 173 mg/dl (70-99)
[2024-04-12 06:16] LABS: Glucose - Point of Care 209 mg/dl (70-99)
[2024-04-12 06:40] LABS: Hematocrit 25.6 % (37.0-47.0); Hemoglobin 8.6 g/dL (12.0-16.0); Mean Corp Hgb Conc. 33.6 g/dL (33.0-37.0); Mean Corpuscular Hgb 26.1 pg (27.0-31.0); Mean Corpuscular Volume 77.6 fL (81.0-99.0); Mean Platelet Volume 10.7 fL (7.4-10.4); Platelet Count 204 10^3/uL (130-400); Red Cell Dist. Width 16.1 % (11.5-14.5); White Blood Cell Count 29.7 10^3/uL (4.8-10.8)
[2024-04-12 06:49] LABS: Vancomycin Random 18.6 ug/ml
[2024-04-12 06:57] LABS: Blood Urea Nitrogen 50 mg/dl (7-17); Calcium 7.7 mg/dl (8.4-10.2); Carbon Dioxide 20 mmol/L (22-30); Chloride 106 mmol/L (98-107); Estimated Creatinine Clearance 46 ml/min; Glucose 184 mg/dl (70-99); Magnesium 1.6 mg/dl (1.6-2.3); Potassium 4.5 mmol/L (3.5-5.1); Sodium 139 mmol/L (135-145); eGFR 45.05
[2024-04-12 07:18] LABS: Glucose - Point of Care 160 mg/dl (70-99)
[2024-04-12] MEDS: HEPARIN SC ×2 (07:29→07:30)
--- NOTE | 2024-04-12 07:45 | W.PN.INTV ---
Today's Communication / Plan
Recommendations
Monitor blood sugar
Monitor anion gap
Insulin drip continues
Empiric antibiotics
Decrease IV fluids
If able to be weaned off insulin drip then transfer out of ICU-call pulmonary if respiratory issues arise
Assessment
-
28-year-old insulin-dependent diabetic female presented with nausea, vomiting, blurry vision, dry mouth, increased thirst, urinary frequency, myalgias and noted to be in DKA requiring ICU admission-tin worker consulted for DKA/critical care
management 04/11/2024.
Diabetic ketoacidosis
Initial blood sugar-1008
Anion gap-30
VBG 04/11/24-20 .31
Leukocytosis
Adwtkl-mvguvrrptd-iflmsprotb 8.6
Anion gap metabolic acidosis
Lactic acidosis
KB-suspect prerenal
Diarrhea
Sepsis
Conditions present prior to admission:
Diabetes-type I since age 18.
Cyclical vomiting.
Marijuana use.
Anemia-iron deficiency.
Severe hepatic steatosis
Hypertension.
Anxiety.
Ovarian cyst rupture 12/2020.
Heavy menses.
Adenoidectomy age 5
Plan
Remains critically ill on insulin drip
Continue supplemental oxygen if needed
Incentive spirometry
Aspiration precautions
Continue to follow blood sugar closely
Monitor anion gap-closing
Insulin drip continues
Check A1c if not done in the last 3 months
Diabetic nurse practitioner consultation noted-correspondence reviewed
Decrease IV fluids
Replace potassium as needed
Continue to follow renal function
If renal function does not improve with fluid hydration then nephrology consultation
Tylenol as needed for pain
She was requesting Toradol-would avoid with renal failure
Morphine if needed
Cultures reviewed
MRSA screen pending
Blood cultures-pending
Urine analysis negative
Empiric antibiotics-vancomycin and Zosyn initiated
Serial abdominal exam
CT abdomen and pelvis-04/11/2024-severe hepatic steatosis, colitis suspected involving cecum and ascending colon, mild urinary bladder wall thickening
Monitor leukocytosis-decreasing but still elevated at 29.7
Monitor hemoglobin-stable at 8.6
Transfuse as needed
Marijuana smoking cessation counseling ongoing
DVT prophylaxis-on heparin
Nutrition-diabetic diet
Early mobilization
If able to be weaned off insulin drip and transfer out of ICU-call pulmonary if respiratory issues arise
Critical care statement: A total of 40 minutes of critical care time was provided for this patient today. This includes management of unstable vital signs, insulin drip management, evaluation of the patient at bedside, reviewing the patient's
pertinent medical records including radiographs, microbiology, laboratory evaluations, and discussion with primary team, consultants, charge nurse, and critical care nursing.
Diagnostic data:
Chest x-ray 08/16/2021-NAD
Chest x-ray 04/11/2024-NAD
CT abdomen and pelvis 01/30/2024-diffuse wall thickening of the urinary bladder may be related to nondistention or cystitis, no intestinal obstruction, bowel inflammation, nephrolithiasis, hydronephrosis, cholecystitis or abscess formation
Subjective Dataa
Subjective Data
Date of Service:
Date of Service: April 12, 2024
Chief Complaint: Cloth Brushing And Sueding Supervisor Follow Up and Pulmonary Follow Up
Subjective:
Feels better, still has some pain but improved, no shortness of breath, chest congestion, chest pain, mild abdominal pain
Review of Systems
General: Other (Per HPI)
Objective Data
Data Reviewed
Vital Signs / I&O / Oxygen:
Vital Signs
Temp Pulse Resp BP Pulse Ox
98.7 F 109 18 128/96 100
04/12/24 00:00 04/12/24 07:15 04/12/24 07:15 04/12/24 07:00 04/12/24 07:15
Intake and Output
04/11/24 04/12/24 04/13/24
06:59 06:59 06:59
Intake Total 3 / 5 152 / 152
Output Total 300 / 300
Balance 1852 152 / 152
SaO2 100
Physical Exam
General: Respiratory Distress (n) and Comfortable
HEENT: Normocephalic, Anicteric and Moist Mucous Membranes
Cardiovascular: Regular Rhythm and Other (Tachy)
Respiratory: Clear
GI: Soft, Non Distended, Tender (Diffusely tender) and Normal Bowel Sounds
Neurology: Awake, Alert and No Motor Deficits
Skin: Warm, Good Color, Cyanosis (n), Jaundice and Rash
Labs/Micro/Reports
Lab Data
04/12/24 06:01
[2024-04-12 08:25] LABS: Glucose - Point of Care 152 mg/dl (70-99)
--- NOTE | 2024-04-12 09:00 | PTCARENOTE ---
Rec'd care of patient at 0700. Patient alert and oriented. Anxious/restless at times. C/o abdominal pain. PRN Dilaudid administered. NSR/ST with BBB on tele monitor. Lung sounds cta on RA. +BS. N/V. Zofran given by shift supervisor melting RN. Voiding on BSC.
Patient has menses. DKA protocol maintained. 0600 gap 13. BMP due at 1000.
[2024-04-12 09:14] LABS: % Basophils 0.2 % (0-2); % Eosinophils 0.1 % (0-6); % Immature Granulocytes 1.4 % (0-0.5); % Lymphocytes 6.3 % (20.5-51.1); % Monocytes 10.9 % (1.7-9.3); % Neutrophils 81.1 % (42.2-75.2); Absolute Basophils 0.1 10^3/uL (0-0.2); Absolute Immature Granulocytes 0.4 10^3/uL (0-0.05); Absolute Lymphocytes 1.9 10^3/uL (1.2-3.4); Absolute Monocytes 3.2 10^3/uL (0.1-0.6); Absolute Neutrophils 24.1 10^3/uL (1.4-6.5); Nucleated Red Blood Cells % 0 %
[2024-04-12 09:30] LABS: Glucose - Point of Care 199 mg/dl (70-99)
--- NOTE | 2024-04-12 09:32 | PN.DE.MGMTRT ---
Insulin Management
- -
04/12/2024 Diabetes Management Consult
Patient admitted with n & v and blood sugar problem. Glucose 1008 on admission. PMH type 1 diabetes, DKA, anxiety and gastritis. Prior to admission patient was using the OmniPod with G7. A1C pending, cr 1.6, eGFR 45.05.
Patient is awake alert and oriented able to discuss diabetes management. States her OmniPod was removed and the hand held controller was sent home. She does not know her basal settings or ratios. Requested new POD, controller and insulin be
brought to hospital. Her G7 has 7 more days before a change is due.
Patient GAP 30 on admission at 6am down to 13. Will continue insulin infusion at this time. Discussed with Dr. Nagy, and patients nurse.
Diabetes History
- -
Type of Diabetes: 1
Pre-Admission Diabetes Regimen
04/11/24 04/11/24 04/11/24
10:30 14:25 17:49
Creatinine 1.7 H 1.8 H 1.6 H
04/11/24 04/12/24 04/12/24
21:22 01:19 02:24
Creatinine 1.5 H Cancelled 1.6 H
04/12/24 04/12/24
04:00 06:01
Creatinine Cancelled 1.6 H
Insulin Pump Settings
IP Diabetes Regimen
04/11/24 04/11/24 04/11/24
09:44 10:30 13:18
Glucose 1008 H*
POC Glucose > 600 H* > 600 H*
04/11/24 04/11/24 04/11/24
14:25 15:14 15:28
Glucose 766 H* 676 H*
POC Glucose > 600 H*
04/11/24 04/11/24 04/11/24
17:08 17:49 17:55
Glucose 497 H*
POC Glucose 562 H* 535 H*
04/11/24 04/11/24 04/11/24
19:00 20:15 21:07
Glucose
POC Glucose 464 H* 350 H 260 H
04/11/24 04/11/24 04/11/24
21:22 22:06 23:02
Glucose 214 H
POC Glucose 185 H 144 H
04/11/24 04/12/24 04/12/24
23:58 01:04 01:19
Glucose Cancelled
POC Glucose 152 H 129 H
04/12/24 04/12/24 04/12/24
02:02 02:24 03:02
Glucose 160 H
POC Glucose 163 H 186 H
04/12/24 04/12/24 04/12/24
04:00 04:15 05:19
Glucose Cancelled
POC Glucose 202 H 173 H
04/12/24 04/12/24 04/12/24
06:01 06:05 07:07
Glucose 184 H
POC Glucose 209 H 160 H
04/12/24 04/12/24
08:14 09:16
Glucose
POC Glucose 152 H 199 H
Patient Education
--- NOTE | 2024-04-12 09:47 | W.PN.HOSP.TC ---
Today's Communication/Plan
-
IVF
Insulin drip
Discontinue vancomycin continue Zosyn for now
Patient to bring insulin pump back from home
Stool studies if patient has diarrhea
IV iron when able
Assessment / Plan
Assessment / Plan
28-year-old female presented to the hospital with 2 days of vomiting she also had blurry vision dry mouth increased thirst urinary frequency and myalgias. She also had some generalized abdominal pain and diarrhea she had went out on Tuesday had a
[employer] buffet but no raw fish or seafood. Tuesday had buffalo chicken cheese steak. Patient's partner also had same food but denied any symptoms. Her OmniPod was alarming high patient is a diabetic since age 18 with history of DKA
CT abdomen and pelvis without IV or oral contrast. Colitis of the cecum and ascending colon. Severe hepatic steatosis. Mild urinary bladder wall thickening
Awake alert ,abdominal pain is better but still present-diffuse
Cardiovascular system S1-S2 appreciated
Chest clear to auscultation
Abdomen mild discomfort no guarding or rigidity
# DKA
Type I diabetic diagnosed at age 18
On insulin pump as outpatient. Patient does not know the settings.
Blood sugar was 1008 with gap 30 on admission
Continue insulin drip until pump can be brought back in
Continue IV fluids
Hemoglobin A1c pending
Follows with as OP. Last seen in October , non changes made to Pump settings per pt.
Diabetes management TRIALS MANAGER consult for insulin pump-discussed
# Leukocytosis-treated as colitis
Obtain stool studies if possible-last diarrhea was yesterday morning. If has another bile movement orders are in for stool studies
Await cultures
No evidence of UTI
Discontinue vancomycin. Continue Zosyn for now
# Lactic acidosis-repeat levels
Continue IV fluids
# Vomiting and diarrhea-likely gastroenteritis
Diarrhea resolved
Stool studies if possible
# Hypotension-likely hypovolemic. Blood pressure better
# Hypertension-hold lisinopril
# Acute kidney injury with a creatinine of 1.7-likely prerenal
Hold lisinopril
Continue IV fluids and follow BMP
# Hyponatremia-pseudohyponatremia. Resolved
# History of cyclical vomiting with marijuana
# Marijuana use-cessation advised
# Anemia-iron deficiency anemia start p.o. iron now. IV iron when infection better. Patient has heavy menstrual periods. Needs outpatient follow-up with GI as well as TORCH STRAIGHTENER AND HEATER. She is aware about the anemia. Stated that she could not afford IV iron
as it was costing her $150 per infusion. States that she cannot tolerate p.o. iron. May try ferrous gluconate
# Severe hepatic steatosis per CT-outpatient GI follow-up
# Microscopic hematuria-patient has her menstrual period so now likely secondary to that.
# DVT prophylaxis-subcutaneous heparin
# Full code
Discussed with ICU team
Discussed with diabetes management TRIALS MANAGER at bedside
Total Critical Care Time 31 minutes. I was immediately available to the patient and staff. I personally examined, reviewed labs, diagnostic images/reports, interpretations, treatment plans, discussed patient care with other providers ,entered
orders as appropriate and documented the medical record.
Anticipated Discharge: 24 - 48 hours
Subjective/Interval History
-
Date of Service: April 12, 2024
Objective Data
-
Labs:
Laboratory Results
04/12/24 04/12/24 04/12/24
01:19 02:24 04:00
WBC
Hgb
Hct
Plt Count
Sodium Cancelled 139 Cancelled
Potassium Cancelled 4.8 Cancelled
Chloride Cancelled 107 Cancelled
Carbon Dioxide Cancelled 18 L Cancelled
BUN Cancelled 55 H Cancelled
Creatinine Cancelled 1.6 H Cancelled
Glucose Cancelled 160 H Cancelled
Calcium Cancelled 7.5 L Cancelled
04/12/24 04/12/24 04/12/24
06:01 09:18 14:00
WBC 29.7 H
Hgb 8.6 L
Hct 25.6 L
Plt Count 204
Sodium 139 Pending Pending
Potassium 4.5 Pending Pending
Chloride 106 Pending Pending
Carbon Dioxide 20 L Pending Pending
BUN 50 H Pending Pending
Creatinine 1.6 H Pending Pending
Glucose 184 H Pending Pending
Calcium 7.7 L Pending Pending
Vital Signs:
Vital Signs
Temp Pulse Resp BP Pulse Ox
98.1 F 80 17 138/82 99
04/12/24 08:00 04/12/24 09:00 04/12/24 09:00 04/12/24 09:00 04/12/24 09:00
I&O
04/11/24 04/12/24 04/13/24
06:59 06:59 06:59
Intake Total 2153 / 2405 806 / 806
Output Total 300 / 300
Balance 1853 / 2105 806 / 806
[2024-04-12 09:48] LABS: Lactic Acid 0.9 mmol/L (0.7-2.0)
[2024-04-12 09:49] LABS: Blood Urea Nitrogen 48 mg/dl (7-17); Calcium 7.6 mg/dl (8.4-10.2); Carbon Dioxide 20 mmol/L (22-30); Chloride 105 mmol/L (98-107); Estimated Creatinine Clearance 46 ml/min; Glucose 192 mg/dl (70-99); Potassium 4.9 mmol/L (3.5-5.1); Sodium 138 mmol/L (135-145); eGFR 45.05
[2024-04-12 10:23] LABS: Glucose - Point of Care 264 mg/dl (70-99)
--- NOTE | 2024-04-12 10:30 | PTCARENOTE ---
Repeat Lactic 0.9. Anion gap remains at 13. No further n/v at current time.
[2024-04-12 11:11] LABS: Glucose - Point of Care 267 mg/dl (70-99)
--- NOTE | 2024-04-12 11:43 | W.PN.INTV ---
Documented by User: Tiara Montoya MD, Resident 04/12/24 12:00
Today's Communication / Plan
Recommendations
Continue insulin drip and fluids per DKA protocol
DC vancomycin, continue Zosyn
Attempt to transition to subq insulin if tolerated
Assessment
-
28-year-old female with past medical history of insulin-dependent type 1 diabetes presented to the ED with nausea, vomiting, diarrhea, dry mouth, blurry vision, headache, increased thirst, increased frequency of urination, heartburn, body aches all
over, and tingling all over. She has an OmniPod which set off an alarm this morning. Appears she received approximately 16 units of insulin total this am. Typical rate 0.7/hr then drops down to 0.5/hr. She had about 7 episodes of diarrhea on Tuesday
and 7 episodes on Tuesday but resolved. She described the diarrhea as slimy or mucousy 'like an orbie cut in half.' On Tuesday she started throwing up, too many times to count. Stopped around 4:30 AM. Since then she has not eaten anything. 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 She ate at a [employer] buffet on Tuesday and had a buffalo cheesecake on Tuesday, but her partner had no similar symptoms. She
thought that some of her issues may be related to her high blood pressure and wanted to schedule an emergency doctors appointment with her primary provider MAGY Duque, but her mom advised her to come to the ED instead. Her wetlands conservation laborer
is Dr. Marcela Maki.
Labs revealed blood glucose 1008, anion gap 30, lactic acid 6, WBC 32.8, hemoglobin 8.6. Patient received 7 units of insulin in ED, started on insulin drip, 1000 mL bolus of LR, 2x 1000 mL bolus of normal saline, and started on Zosyn and vanc.
Impression:
#DKA
#Metabolic acidosis
#Type 1 Diabetes
BG 1008
AG 30
LA 6
#Sepsis secondary to GI source
#leukocytosis with bandemia
#Hypotension
#Hyponatremia
#Anemia
#KB
Conditions present prior to admission: Type 1 diabetes, Cannabis hyperemeses syndrome , Ruptures ovarian cyst 12/23/2020, hx Heavy mensus , OFELIA, HTN, anxiety
Plan:
Respiratory
-Keep SpO2 >92% - supplemental O2 as needed
-pCO2 compensated for metabolic acidosis
Endocrinology
-DKA on type 1 DM
-Metabolic acidosis
-BG 1008, AG 30, LA 6 on admission
- Signifiant imrpovement overnight BG 192, AG 13, LA 0.9
-Transition from NPO to liquid diet when gap closes or as tolerated as BG <200 and bicarb >18
-Continue D5/0.45% Nss with Kcl 20meq 250
-Keep urine output >50 cc/hr
-Continue insulin gtt until AG closes and for 2hrs after first SQ insulin dose. pts significant other is going to bring insulin pump in later today
-BMP q4hr
-Replete electrolytes as needed
-Tylenol for pain. Consider hydromorphone if severe rather than morphine due to KB
-PRN zofran for N/V
-Keep SpO2 >92%
-Strict I&O
-If BG <100, use D10% at 50cc/hr while on insulin gtt
- HgA1c pending
Cardiovascular
-Sepsis with unclear etiology likely GI with hx mucous-y stools/diarrhea
-Leukocytosis with bands
-Hypotension
-WBC 32.8, Neutrophil bands 8.6, HR 98, BP 104/36 on admission
-UA (-), Covid (-), Chest x-ray no acute cardiopulm etiologies
-CT abd/pelvis revlealed colitis and mild urinary bladder wall thickening
-Given UA negative and previously worked up for interstitial cystitis, UTI unlikely cause for sepsis. More likely episode of colitis. No diarrhea in last 2 days.
-Cont. zosyn, d/c vanco
-Monitor WBC
-Hold lisinopril
-Iron deficiency anemia
-hg 8.6, MCV 80
-Check hemeoccult blood
-Iron panel pending
-Hx of heavy periods
-Transfuse for hg <7
Renal
-KB likely 2/2 hypovolemia
-Cr 1.7, baseline 0.8
-Today slight improvement to 1.6
-Hold lisinopril
-Fluids per DKA protocol
-Avoid NSAIDs/nephrotoxic agents
GI
-Ab/pelvic CT revealed colitis and urinary bladder wall thickening. No UTI, so likely sepsis secondary to colitis.
-Last BM 2 days ago, but stool studies if possible
-Diffuse abdominal tenderness
-PRN zofran for N&V
-Hemeoccult blood test
-DVT SQ heparin
-NPO
-Full Code
-
-
Subjective Dataa
Subjective Data
Date of Service:
Date of Service: April 12, 2024
Review of Systems
General: Fever (n), Chills (n), Pain and Elevated Blood Sugar
Cardiopulmonary: Dyspnea (n), Cough (n), Wheezing (n) and Chest Pain (n)
GI: Abdominal Pain, Nausea, Vomiting and Diarrhea (n)
Neuro: Weakness
Objective Data
Data Reviewed
Vital Signs / I&O / Oxygen:
Vital Signs
Temp Pulse Resp BP Pulse Ox
98.1 F 90 23 136/94 100
04/12/24 08:00 04/12/24 11:00 04/12/24 11:00 04/12/24 11:00 04/12/24 11:00
Intake and Output
04/11/24 04/12/24 04/13/24
06:59 06:59 06:59
Intake Total 2152 / 5 131 / 1312
Output Total 300 / 300
Balance 1852 / 5 1311 / 131
SaO2 100
Physical Exam
General: Comfortable
HEENT: Normocephalic
Cardiovascular: S1-S2 and Other (Tachy)
Respiratory: Clear
GI: Soft, Non Distended, Tender (Diffusely tender) and Normal Bowel Sounds
Neurology: AO x 3
Skin: Warm
Labs/Micro/Reports
Lab Data
04/12/24 06:01

Documented by User: Alexis Boswell MD 04/12/24 12:45
Assessment
-
28-year-old female with past medical history of insulin-dependent type 1 diabetes presented to the ED with nausea, vomiting, diarrhea, dry mouth, blurry vision, headache, increased thirst, increased frequency of urination, heartburn, body aches all
over, and tingling all over. She has an OmniPod which set off an alarm this morning. Appears she received approximately 16 units of insulin total this am. Typical rate 0.7/hr then drops down to 0.5/hr. She had about 7 episodes of diarrhea on Tuesday
and 7 episodes on Tuesday but resolved. She described the diarrhea as slimy or mucousy 'like an orbie cut in half.' On Tuesday she started throwing up, too many times to count. Stopped around 4:30 AM. Since then she has not eaten anything. 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 She ate at a [employer] buffet on Tuesday and had a buffalo cheesecake on Saturday, but her partner had no similar symptoms. She
thought that some of her issues may be related to her high blood pressure and wanted to schedule an emergency doctors appointment with her primary provider MAGY Duque, but her mom advised her to come to the ED instead. Her wetlands conservation laborer
is Dr. Marcela Maki.
Labs revealed blood glucose 1008, anion gap 30, lactic acid 6, WBC 32.8, hemoglobin 8.6. Patient received 7 units of insulin in ED, started on insulin drip, 1000 mL bolus of LR, 2x 1000 mL bolus of normal saline, and started on Zosyn and vanc.
Impression:
#DKA
#Metabolic acidosis
#Type 1 Diabetes
BG 1008
AG 30
LA 6
#Sepsis secondary to GI source
#leukocytosis with bandemia
#Hypotension
#Hyponatremia
#Anemia
#KB
Conditions present prior to admission: Type 1 diabetes, Cannabis hyperemeses syndrome , Ruptures ovarian cyst 12/23/2020, hx Heavy mensus , OFELIA, HTN, anxiety
Plan:
Respiratory
-Keep SpO2 >92% - supplemental O2 as needed
-pCO2 compensated for metabolic acidosis
Endocrinology
-DKA on type 1 DM
-Metabolic acidosis
-BG 1008, AG 30, LA 6 on admission
-Signifiant imrpovement overnight BG 192, AG 13, LA 0.9
-Transition from NPO to liquid diet when gap closes or as tolerated as BG <200 and bicarb >18
-Continue D5/0.45% Nss with Kcl 20meq 250
-Keep urine output >50 cc/hr
-Continue insulin gtt until AG closes and for 2hrs after first SQ insulin dose. pts significant other is going to bring insulin pump in later today
-BMP q4hr
-Replete electrolytes as needed
-Tylenol for pain. Consider hydromorphone if severe rather than morphine due to KB
-PRN zofran for N/V
-Keep SpO2 >92%
-Strict I&O
-If BG <100, use D10% at 50cc/hr while on insulin gtt
- HgA1c pending
Cardiovascular
-Sepsis with unclear etiology likely GI with hx mucous-y stools/diarrhea
-Leukocytosis with bands
-Hypotension
-WBC 32.8, Neutrophil bands 8.6, HR 98, BP 104/36 on admission
-UA (-), Covid (-), Chest x-ray no acute cardiopulm etiologies
-CT abd/pelvis revlealed colitis and mild urinary bladder wall thickening
-Given UA negative and previously worked up for interstitial cystitis, UTI unlikely cause for sepsis. More likely episode of colitis. No diarrhea in last 2 days.
-Cont. zosyn, d/c vanco
-Monitor WBC
-Hold lisinopril
-Iron deficiency anemia
-hg 8.6, MCV 80
-Check hemeoccult blood
-Iron panel pending
-Hx of heavy periods
-Transfuse for hg <7
Renal
-KB likely 2/2 hypovolemia
-Cr 1.7, baseline 0.8
-Today slight improvement to 1.6
-Hold lisinopril
-Fluids per DKA protocol
-Avoid NSAIDs/nephrotoxic agents
GI
-Ab/pelvic CT revealed colitis and urinary bladder wall thickening. No UTI, so likely sepsis secondary to colitis.
-Last BM 2 days ago, but stool studies if possible
-Diffuse abdominal tenderness
-PRN zofran for N&V
-Hemeoccult blood test
-DVT SQ heparin
-NPO
-Full Code
-
I reviewed this patients case independently and in conjunction with the resident. I personally examined the patient. Patient's complex medical history, laboratory evaluations, events over the last 24 hours, radiographs, microbiological data were
all personally reviewed.
Agree with documented assessment and plan
Alexis Boswell MD, [facility], [facility]
-
--- NOTE | 2024-04-12 12:00 | PTCARENOTE ---
No changes in assessment. PRN Dilaudid and Zofran administered for abdominal pain and nausea. VSS. Next BMP due at 1400.
--- NOTE | 2024-04-12 12:02 | CM ---
CM following re: discharge planning.
Reviewed pt's chart, met with pt.
Pt is a 28 year old female, admitted with primary dx of DKA.
Pt reports she lives with in an apartment, no steps. 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
PCP: Julianna Schneider
Pharamcy: Kiki Morales.
D/c plan: home with anticipated no needs. to transport at discharge.
CM will follow with discharge plan updates as hospitalization progresses
[2024-04-12 12:12] LABS: Glucose - Point of Care 229 mg/dl (70-99)
[2024-04-12 13:18] LABS: Glucose - Point of Care 195 mg/dl (70-99)
[2024-04-12 14:02] LABS: Glycohemoglobin (HgbA1c) 9.3 % (4.0-5.6)
[2024-04-12 14:30] LABS: Glucose - Point of Care 233 mg/dl (70-99)
[2024-04-12 14:49] LABS: Amphetamines Negative (Negative); Barbiturates Negative (Negative); Benzodiazepines Negative (Negative); Buprenorphine Negative (Negative); Cocaine Negative (Negative); Marijuana Positive (Negative); Methadone Negative (Negative); Methamphetamines Negative (Negative); Opiates Positive (Negative); Phencyclidine Negative (Negative); Tricyclic Antidepressants Negative (Negative)
[2024-04-12 15:07] LABS: Blood Urea Nitrogen 38 mg/dl (7-17); Calcium 7.5 mg/dl (8.4-10.2); Carbon Dioxide 19 mmol/L (22-30); Chloride 104 mmol/L (98-107); Estimated Creatinine Clearance 52 ml/min; Glucose 232 mg/dl (70-99); Potassium 4.7 mmol/L (3.5-5.1); Sodium 136 mmol/L (135-145); eGFR 52.88
[2024-04-12 15:10] LABS: Fentanyl, Urine Negative (Negative)
[2024-04-12 15:25] LABS: Glucose - Point of Care 300 mg/dl (70-99)
[2024-04-12] MEDS: TYLENOL 650 MG PO (16:13)
[2024-04-12 16:18] LABS: Glucose - Point of Care 277 mg/dl (70-99)
--- NOTE | 2024-04-12 16:45 | PTCARENOTE ---
Received pt at 1500 from day shift. Pt was on her hands and knees in bed when entered room to meet and assess. Pt says that she has pain in her stomach. Pt last had her dilaudid 0.25 mg iv at 1143, and was not due for another dose yet. Pt assisted
back to a lying position, which did help her with discomfort. She fell asleep in 5 mins. Pt awake again in an hour. After pt awoke, she was offered her dilaudid dose if she needed it. Pt decided to have her tylenol 650 mg dose at this time. Pt OOB
to commode. Pt had a liq BM, but was combined with her voided urine, so could not send a specimen to lab. Pt is SR with a BBB as per monitor, BP 134/85. Pt afeb. All lobes clear throughout, O2 sat= 99% on R/A. Pt's accu check done q 1 hr, and are
now running 277-300. Reg insulin infusing at 4 units/hr. Pt's mother to room visiting. Pt resting in bed, call bed in hand.
[2024-04-12 17:19] LABS: Glucose - Point of Care 279 mg/dl (70-99)
[2024-04-12 18:22] LABS: Glucose - Point of Care 253 mg/dl (70-99)
[2024-04-12 18:35] LABS: Blood Urea Nitrogen 33 mg/dl (7-17); Calcium 7.3 mg/dl (8.4-10.2); Carbon Dioxide 23 mmol/L (22-30); Chloride 107 mmol/L (98-107); Estimated Creatinine Clearance 61 ml/min; Glucose 221 mg/dl (70-99); Potassium 4.5 mmol/L (3.5-5.1); Sodium 138 mmol/L (135-145); eGFR > 60.00
--- NOTE | 2024-04-12 18:47 | PTCARENOTE ---
Reg insulin drip remains at 4 units/hr. BMP drawn at 1800. Anion gap now is 8. Accu checks presently being checked q 1 hr.
[2024-04-12 19:09] LABS: Glucose - Point of Care 217 mg/dl (70-99)
[2024-04-12] MEDS: FEOSOL PO ×2 (19:45→19:48)
[2024-04-12 20:09] LABS: Glucose - Point of Care 162 mg/dl (70-99)
--- NOTE | 2024-04-12 20:40 | PTCARENOTE ---
Received patient AAOx3, family at bedside. Complaining of pain 6/10 throughout body and nausea, zofran and dilaudid given. Normal sinus, BP 130s-140s/80s-90s. Palpable radial and pedal pulses b/l. 98% on room air, lung sounds clear throughout.
Abdomen soft, round, nontender, positive bowel sounds. Last BM today, commode to void. Skin intact. PIVs patent, WNL. Insulin and IVF gtt ongoing. [place] with warm water, soap, and wash cloths provided. New gown and new leads applied. Call garcia
within reach, Q1 accuchecks.
[2024-04-12 21:16] LABS: Glucose - Point of Care 211 mg/dl (70-99)
[2024-04-12 22:17] LABS: Glucose - Point of Care 252 mg/dl (70-99)
[2024-04-12 22:34] LABS: Blood Urea Nitrogen 28 mg/dl (7-17); Calcium 7.3 mg/dl (8.4-10.2); Carbon Dioxide 22 mmol/L (22-30); Chloride 106 mmol/L (98-107); Estimated Creatinine Clearance 61 ml/min; Glucose 227 mg/dl (70-99); Potassium 4.4 mmol/L (3.5-5.1); Sodium 138 mmol/L (135-145); eGFR > 60.00
[2024-04-12 23:13] LABS: Glucose - Point of Care 236 mg/dl (70-99)
[2024-04-13] VITALS (14 sets, daily range): BP systolic 117–176; BP diastolic 76–111
--- NOTE | 2024-04-13 00:11 | PTCARENOTE ---
Patient assessment unchanged from previous, call garcia within reach.
[2024-04-13] MEDS: DILAUDID 0.25 MG IV ×5 (00:13→20:44)
[2024-04-13 00:24] LABS: Glucose - Point of Care 240 mg/dl (70-99)
[2024-04-13] MEDS: D5/0.45%NSS with KCL 20 MEQ 1000 IV ×2 (00:57→04:54)
[2024-04-13 01:13] LABS: Glucose - Point of Care 225 mg/dl (70-99)
[2024-04-13] MEDS: ZOSYN 50 IV ×4 (02:13→20:44)
[2024-04-13 02:22] LABS: Glucose - Point of Care 182 mg/dl (70-99)
[2024-04-13] MEDS: ZOFRAN 4 MG IV ×2 (02:27→15:43)
[2024-04-13 02:33] LABS: Blood Urea Nitrogen 23 mg/dl (7-17); Calcium 7.2 mg/dl (8.4-10.2); Carbon Dioxide 22 mmol/L (22-30); Chloride 109 mmol/L (98-107); Estimated Creatinine Clearance 73 ml/min; Glucose 190 mg/dl (70-99); Potassium 4.8 mmol/L (3.5-5.1); Sodium 140 mmol/L (135-145); eGFR > 60.00
[2024-04-13 03:17] LABS: Glucose - Point of Care 190 mg/dl (70-99)
[2024-04-13 04:14] LABS: Glucose - Point of Care 200 mg/dl (70-99)
--- NOTE | 2024-04-13 04:24 | PTCARENOTE ---
Patient assessment unchanged from previous, stomach pain 10/30, dilaudid given. Call garcia within reach.
[2024-04-13 05:08] LABS: Glucose - Point of Care 225 mg/dl (70-99)
[2024-04-13 06:27] LABS: Glucose - Point of Care 220 mg/dl (70-99)
[2024-04-13 06:52] LABS: Blood Urea Nitrogen 19 mg/dl (7-17); Carbon Dioxide 19 mmol/L (22-30); Chloride 109 mmol/L (98-107); Estimated Creatinine Clearance 81 ml/min; Glucose 169 mg/dl (70-99); Magnesium 1.5 mg/dl (1.6-2.3); Phosphorus 1.5 mg/dl (2.5-4.5); Potassium 4.3 mmol/L (3.5-5.1); Sodium 140 mmol/L (135-145); eGFR > 60.00
[2024-04-13 06:58] LABS: % Basophils 0.1 % (0-2); % Immature Granulocytes 0.4 % (0-0.5); % Monocytes 4.6 % (1.7-9.3); % Neutrophils 87.9 % (42.2-75.2); Absolute Immature Granulocytes 0.1 10^3/uL (0-0.05); Absolute Lymphocytes 1.2 10^3/uL (1.2-3.4); Absolute Monocytes 0.8 10^3/uL (0.1-0.6); Absolute Neutrophils 15.2 10^3/uL (1.4-6.5); Hematocrit 24.2 % (37.0-47.0); Mean Corp Hgb Conc. 33.1 g/dL (33.0-37.0); Mean Corpuscular Hgb 25.6 pg (27.0-31.0); Mean Corpuscular Volume 77.6 fL (81.0-99.0); Mean Platelet Volume 10.1 fL (7.4-10.4); Nucleated Red Blood Cells % 0 %; Platelet Count 148 10^3/uL (130-400); Red Blood Cell Count 3.12 10^6/uL (4.20-5.40); White Blood Cell Count 17.2 10^3/uL (4.8-10.8)
[2024-04-13 07:29] LABS: Glucose - Point of Care 191 mg/dl (70-99)
--- NOTE | 2024-04-13 07:33 | W.PN.INTV ---
Today's Communication / Plan
Recommendations
Insulin drip-convert to her own insulin pump
Follow blood sugars
Check stool samples
Empiric antibiotics
Decrease IV fluids
Replace electrolytes
If able to come off insulin drip then transfer out of ICU-call pulmonary if respiratory issues arise
Assessment
-
28-year-old insulin-dependent diabetic female presented with nausea, vomiting, blurry vision, dry mouth, increased thirst, urinary frequency, myalgias and noted to be in DKA requiring ICU admission-director of development consulted for DKA/critical care
management 04/11/2024.
Diabetic ketoacidosis
Initial blood sugar-1008
Anion gap-30
VBG 04/11/24-/7.31
Urine ketones
Leukocytosis
Azgdhu-tofjupwxtj-iddbrcsqdi 8.6
Anion gap metabolic acidosis
Lactic acidosis
KB-suspect prerenal
Diarrhea
Sepsis
Urine drug screen positive opiates and marijuana
Conditions present prior to admission:
Diabetes-type I since age 18.
Cyclical vomiting.
Marijuana use.
Anemia-iron deficiency.
Hypertension.
Anxiety.
Ovarian cyst rupture 12/2020.
Heavy menses.
Adenoidectomy age 5
Plan
Patient slowly improving with blood sugars much better controlled
Supplemental oxygen if needed
Incentive spirometry encouraged
Aspiration precautions
Continue to monitor blood sugar
Monitor anion gap-appears to have closed
Insulin drip-will likely change to her insulin pump
A1c-9.3
Diabetic nurse practitioner following-correspondence reviewed-appreciate input
Decrease IV fluids
Monitor potassium closely and replace appropriately
Continue to monitor renal function-KB resolved
Tylenol as needed for pain
She was requesting Toradol-initially avoided with renal failure-now pain improved
Cultures reviewed
C. difficile negative
Stool cultures with diarrhea 04/12/2024-pending for Salmonella/Shigella, Shiga toxin and Campylobacter
Empiric antibiotics-vancomycin and Zosyn initiated
Serial abdominal exam
CT abdomen and pelvis--summarized below
Leukocytosis improving
Marijuana smoking cessation counseling ongoing
DVT prophylaxis-refusing heparin
Diabetic diet
Increase activity
If able to be weaned off insulin drip and transfer out of ICU-call pulmonary if respiratory issues arise
Reviewed with partner at the bedside
Critical care statement: A total of 40 minutes of critical care time was provided for this patient today. This includes management of unstable vital signs, insulin drip management, evaluation of the patient at bedside, reviewing the patient's
pertinent medical records including radiographs, insulin drip management, DKA management, microbiology, laboratory evaluations, and discussion with primary team, consultants, charge nurse, and critical care nursing.
Diagnostic data:
Chest x-ray 08/16/2021-NAD
Chest x-ray 04/11/2024-NAD
CT abdomen and pelvis 01/30/2024-diffuse wall thickening of the urinary bladder may be related to nondistention or cystitis, no intestinal obstruction, bowel inflammation, nephrolithiasis, hydronephrosis, cholecystitis or abscess formation
Subjective Dataa
Subjective Data
Date of Service:
Date of Service: April 13, 2024
Chief Complaint: Litigation Associate Follow Up and Pulmonary Follow Up
Subjective:
Feels better, abdominal pain improved, no complaints of shortness of breath, chest pain
Review of Systems
General: Other (Per HPI)
Objective Data
Data Reviewed
Vital Signs / I&O / Oxygen:
Vital Signs
Temp Pulse Resp BP Pulse Ox
98.3 F 62 14 129/76 95
04/13/24 03:04 04/13/24 05:45 04/13/24 05:45 04/13/24 05:00 04/13/24 05:45
Intake and Output
04/12/24 04/13/24 04/14/24
06:59 06:59 06:59
Intake Total 2153 / 2405 5968 / 6221 253 / 253
Output Total 300 / 300 1200 / 1200
Balance 1853 / 2105 4768 / 5021 253 / 253
SaO2 95
Physical Exam
General: Respiratory Distress (n) and Comfortable
HEENT: Normocephalic, Anicteric and Moist Mucous Membranes
Cardiovascular: Regular Rhythm and Other (Tachy)
Respiratory: Clear
GI: Soft, Non Distended, Tender (Diffusely tender) and Normal Bowel Sounds
Neurology: Awake, Alert and No Motor Deficits
Skin: Warm, Good Color, Cyanosis (n), Jaundice and Rash
Labs/Micro/Reports
Lab Data
04/13/24 06:21
Microbiology
04/11/24 12:57 Blood/Venous Blood Culture - Preliminary
No Growth in 24 hours- Final report to follow
[2024-04-13 08:11] LABS: Glucose - Point of Care 159 mg/dl (70-99)
[2024-04-13] MEDS: MAGNESIUM SULFATE 50 IV (08:29)
[2024-04-13] MEDS: NEUTRA-PHOS POWDER PACKET 250 MG PO ×4 (08:29→22:06)
[2024-04-13] MEDS: FEOSOL 325 MG PO (08:29)
--- NOTE | 2024-04-13 09:05 | W.PN.HOSP.TC ---
Today's Communication/Plan
-
Stool studies
Switch drip to insulin pump
Continue antibiotics today
IV iron
Assessment / Plan
Assessment / Plan
28-year-old female presented to the hospital with 2 days of vomiting she also had blurry vision dry mouth increased thirst urinary frequency and myalgias. She also had some generalized abdominal pain and diarrhea she had went out on Tuesday had a
[employer] buffet but no raw fish or seafood. Tuesday had buffalo chicken cheese steak. Patient's partner also had same food but denied any symptoms. Her OmniPod was alarming high patient is a diabetic since age 18 with history of DKA
CT abdomen and pelvis without IV or oral contrast. Colitis of the cecum and ascending colon. Severe hepatic steatosis. Mild urinary bladder wall thickening
Awake alert ,abdominal pain is better . No guarding or rigidity
Cardiovascular system S1-S2 appreciated
Chest clear to auscultation
Abdomen mild discomfort no guarding or rigidity
# DKA
Anion gap closed
Type I diabetic diagnosed at age 18
Dietary consultation as hemoglobin A1c is 9.3 indicates poor control as outpatient
On insulin pump as outpatient.
Partner brought in patient's insulin pump settings reviewed 9 PM to 12 AM-0.55 units/h, 5 AM to 10 AM 0.75 units/h, 10 AM to 3 PM 0.70 units per hour, 3 PM to 9 PM 0.8 units/h
Blood sugar was 1008 with gap 30 on admission
Continue insulin drip until pump replaced today
Follows with as OP. Last seen in October , no changes made to Pump settings per pt.
Diabetes management CRM CAMPAIGN MANAGER consult for insulin pump-discussed
# Leukocytosis-treated as colitis
Vomiting and diarrhea on admission
Stool studies. C. difficile negative. Cultures pending
Blood cultures negative
No evidence of UTI
Discontinue vancomycin. Continue Zosyn for now. Could be switched to Augmentin when better
# Hypomagnesemia and hypophosphatemia-replace and recheck in the morning
# Lactic acidosis-resolved
# Hypotension-likely hypovolemic. Blood pressure better
# Hypertension-hold lisinopril
# Acute kidney injury with a creatinine of 1.7-likely prerenal
Hold lisinopril
Creatinine improved
# Hyponatremia-pseudohyponatremia. Resolved
# History of cyclical vomiting with marijuana
# Marijuana use-cessation advised
# Anemia-iron deficiency anemia start p.o. iron now. IV iron ordered. Patient has heavy menstrual periods. 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 She is aware about the anemia. Stated that she could not afford IV iron as it was
costing her $150 per infusion. States that she cannot tolerate p.o. iron. May try ferrous gluconate at discharge
# Severe hepatic steatosis per CT-outpatient GI follow-up
# Microscopic hematuria-patient has her menstrual period so now likely secondary to that.
# DVT prophylaxis-subcutaneous heparin
# Full code
Discussed with ICU team
Discussed with partner at bedside
Total Critical Care Time 31 minutes. I was immediately available to the patient and staff. I personally examined, reviewed labs, diagnostic images/reports, interpretations, treatment plans, discussed patient care with other providers ,entered
orders as appropriate and documented the medical record.
Anticipated Discharge: 24 - 48 hours
Subjective/Interval History
-
Date of Service: April 13, 2024
Objective Data
-
Labs:
Laboratory Results
04/12/24 04/13/24 04/13/24
22:06 02:12 06:21
WBC 17.2 H
Hgb 8.0 L
Hct 24.2 L
Plt Count 148 D
Sodium 138 140 140
Potassium 4.4 4.8 4.3
Chloride 106 109 H 109 H
Carbon Dioxide 22 22 19 L
BUN 28 H 23 H 19 H
Creatinine 1.2 H 1.0 0.9
Glucose 227 H 190 H 169 H
Calcium 7.3 L 7.2 L 7.0 L
04/13/24 04/13/24 04/13/24
10:00 14:00 18:00
WBC
Hgb
Hct
Plt Count
Sodium Pending Pending Pending
Potassium Pending Pending Pending
Chloride Pending Pending Pending
Carbon Dioxide Pending Pending Pending
BUN Pending Pending Pending
Creatinine Pending Pending Pending
Glucose Pending Pending Pending
Calcium Pending Pending Pending
04/13/24
22:00
WBC
Hgb
Hct
Plt Count
Sodium Pending
Potassium Pending
Chloride Pending
Carbon Dioxide Pending
BUN Pending
Creatinine Pending
Glucose Pending
Calcium Pending
Vital Signs:
Vital Signs
Temp Pulse Resp BP Pulse Ox
98.2 F 62 14 129/76 95
04/13/24 07:35 04/13/24 05:45 04/13/24 05:45 04/13/24 05:00 04/13/24 07:34
I&O
04/12/24 04/13/24 04/14/24
06:59 06:59 06:59
Intake Total 2153 / 2405 5968 / 6221 505 / 505
Output Total 300 / 300 1200 / 1200
Balance 1853 / 2105 4768 / 5021 505 / 505
--- NOTE | 2024-04-13 09:16 | PN.DE.MGMTRT ---
Insulin Management
- -
04/13/2024 Diabetes Management Consult Follow up
Patient admitted with n & v and blood sugar problem. Glucose 1008 on admission. PMH type 1 diabetes, DKA, anxiety and gastritis. Prior to admission patient was using the OmniPod with G7. A1C 9.3%, cr 1.6, eGFR 45.05.
Patient is awake alert and oriented able to discuss diabetes management. Sees jacqueline Roque for ongoing diabetes management. States her OmniPod was removed and the hand held controller was sent home. She does not know her basal settings or
ratios. Requested new POD, controller and insulin be brought to hospital. Her G7 has 7 more days before a change is due.
04/13 Pod and controller here. Will restart insulin pump. Pod prepared and applied, pump settings as follows:
Basal Bolus Correction
12am .55 8.5 30
5am .75 8.5 30
10am .8 8.5 30
3pm .8 8.5 30
9pm .55 8.5 30
active insulin 3 hours.
To continue insulin drip for one hour then stop. Patient to deliver all insulin via pod once insulin infusion off.
Diabetes History
- -
Type of Diabetes: 1
Pre-Admission Diabetes Regimen
04/12/24 04/12/24 04/12/24
09:18 14:17 18:09
Creatinine 1.6 H 1.4 H 1.2 H
04/12/24 04/13/24 04/13/24
22:06 02:12 06:21
Creatinine 1.2 H 1.0 0.9
Lab Results
Hemoglobin A1c 9.3 % (4.0-5.6) H 04/12/24 06:01
Insulin Pump Settings
IP Diabetes Regimen
04/12/24 04/12/24 04/12/24
09:16 09:18 10:09
Glucose 192 H
POC Glucose 199 H 264 H
04/12/24 04/12/24 04/12/24
11:00 12:00 13:05
Glucose
POC Glucose 267 H 229 H 195 H
04/12/24 04/12/24 04/12/24
14:17 15:14 16:07
Glucose 232 H
POC Glucose 233 H 300 H 277 H
04/12/24 04/12/24 04/12/24
17:08 18:09 18:11
Glucose 221 H
POC Glucose 279 H 253 H
04/12/24 04/12/24 04/12/24
18:57 19:58 21:05
Glucose
POC Glucose 217 H 162 H 211 H
04/12/24 04/12/24 04/13/24
22:06 23:02 00:13
Glucose 227 H
POC Glucose 252 H 236 H 240 H
04/13/24 04/13/24 04/13/24
01:02 02:11 02:12
Glucose 190 H
POC Glucose 225 H 182 H
04/13/24 04/13/24 04/13/24
03:03 04:03 04:56
Glucose
POC Glucose 190 H 200 H 225 H
04/13/24 04/13/24 04/13/24
06:16 06:21 07:18
Glucose 169 H
POC Glucose 220 H 191 H
04/13/24
08:00
Glucose
POC Glucose 159 H
Meal type: Dinner
Patient Education
[2024-04-13] MEDS: D5/0.45%NSS with KCL 20 MEQ IV (09:20)
[2024-04-13 09:36] LABS: Glucose - Point of Care 147 mg/dl (70-99)
[2024-04-13 10:23] LABS: Vitamin D, 25-OH*** < 12.8 ng/mL (30-80)
--- NOTE | 2024-04-13 10:50 | W.PN.INTV ---
Documented by User: Tiara Montoya MD, Resident 04/13/24 11:03
Today's Communication / Plan
Recommendations
Transition to subcu insulin
Downgrade to MedSurg
Stool cultures pending
Continue antibiotics
Assessment
-
28-year-old female with past medical history of insulin-dependent type 1 diabetes presented to the ED with nausea, vomiting, diarrhea, dry mouth, blurry vision, headache, increased thirst, increased frequency of urination, heartburn, body aches all
over, and tingling all over. She has an OmniPod which set off an alarm this morning. Appears she received approximately 16 units of insulin total this am. Typical rate 0.7/hr then drops down to 0.5/hr. She had about 7 episodes of diarrhea on Tuesday
and 7 episodes on Tuesday but resolved. She described the diarrhea as slimy or mucousy 'like an orbie cut in half.' On Tuesday she started throwing up, too many times to count. Stopped around 4:30 AM. Since then she has not eaten anything. 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 She ate at a [employer] buffet on Tuesday and had a buffalo cheesecake on Tuesday, but her partner had no similar symptoms. She
thought that some of her issues may be related to her high blood pressure and wanted to schedule an emergency doctors appointment with her primary provider MAGY Duque, but her mom advised her to come to the ED instead. Her wholesale diamond broker
is Dr. Marcela Maki.
Labs revealed blood glucose 1008, anion gap 30, lactic acid 6, WBC 32.8, hemoglobin 8.6. Patient received 7 units of insulin in ED, started on insulin drip, 1000 mL bolus of LR, 2x 1000 mL bolus of normal saline, and started on Zosyn and vanc.
Impression:
#DKA
#Metabolic acidosis
#Type 1 Diabetes
BG 1008
AG 30
LA 6
#Sepsis secondary to GI source
#leukocytosis with bandemia
#Hypotension
#Hyponatremia
#Anemia
#KB
#Diarrhea
Conditions present prior to admission: Type 1 diabetes, Cannabis hyperemeses syndrome , Ruptures ovarian cyst 12/23/2020, hx Heavy mensus , OFELIA, HTN, anxiety
Plan:
Respiratory
-Keep SpO2 >92% - supplemental O2 as needed
-pCO2 compensated for metabolic acidosis
Endocrinology
-DKA on type 1 DM
-Metabolic acidosis
-BG 1008, AG 30, LA 6 on admission
-Significant improvement Gap now 12
-Transition from NPO to liquid diet when gap closes or as tolerated as BG <200 and bicarb >18
-Discontinue fluids once pt is able to tolerate diet
-Keep urine output >50 cc/hr
-Patients on home insulin pump as of this morning, discontinue insulin drip today
-BMP q4hr
-Replete electrolytes as needed
-Tylenol for pain. Consider hydromorphone if severe rather than morphine due to KB
-PRN zofran for N/V
-Keep SpO2 >92%
-Strict I&O
-If BG <100, use D10% at 50cc/hr while on insulin gtt
- HgA1c 9.3
-Diabetic nurse consult
Cardiovascular
-Sepsis with unclear etiology likely GI with hx mucous-y stools/diarrhea
-Leukocytosis with bands
-Hypotension
-WBC 32.8, Neutrophil bands 8.6, HR 98, BP 104/36 on admission
-UA (-), Covid (-), Chest x-ray no acute cardiopulm etiologies
-CT abd/pelvis revlealed colitis and mild urinary bladder wall thickening
-Given UA negative and previously worked up for interstitial cystitis, UTI unlikely cause for sepsis. More likely episode of colitis. No diarrhea in last 2 days.
-Cont. zosyn
-Monitor WBC
-WBC downtrending
-Stool cultures sent
-Hypotension now resolved and hypertensive. Restart home lisinopril
-Iron deficiency anemia
-hg 8.6, MCV 80
-Iron panel consistent with OFELIA
-Hx of heavy periods
-Transfuse for hg <7
-IV iron per hospitalist team
-Previously unable to tolerate PO iron as it caused vomiting. Unable to pay for outpatient iron transfusion as too expensive.
Renal
-KB likely 2/2 hypovolemia
-Cr 1.7, baseline 0.8
-Resolved
-Restart lisinopril
-Avoid NSAIDs/nephrotoxic agents
GI
-Ab/pelvic CT revealed colitis and urinary bladder wall thickening. No UTI, so likely sepsis secondary to colitis.
-Yancy cultures pending
-Diffuse abdominal tenderness
-PRN zofran for N&V
-DVT SQ heparin - pt refusing but not high risk for DVT. Very active walking around room.
-Diabetic diet
-Full Code
-
Subjective Dataa
Subjective Data
Date of Service:
Date of Service: April 13, 2024
Feeling better, but still a bit nauseous. Episodes of vomiting and diarrhea overnight.
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
Review of Systems
General: Fever (n), Sweats (n), Chills (n) and Elevated Blood Sugar
Cardiopulmonary: Cough (n), Wheezing (n) and Chest Pain (n)
GI: Abdominal Pain, Nausea, Vomiting and Diarrhea
Objective Data
Data Reviewed
Vital Signs / I&O / Oxygen:
Vital Signs
Temp Pulse Resp BP Pulse Ox
98.2 F 62 18 147/105 96
04/13/24 07:35 04/13/24 09:15 04/13/24 09:15 04/13/24 09:00 04/13/24 09:15
Intake and Output
04/12/24 04/13/24 04/14/24
06:59 06:59 06:59
Intake Total 2153 / 2405 5968 / 6221 505 / 505
Output Total 300 / 300 1200 / 1200
Balance 1853 / 2105 4768 / 5021 505 / 505
SaO2 96
Physical Exam
General: Respiratory Distress (n) and Comfortable
HEENT: Normocephalic, Anicteric and Moist Mucous Membranes
Cardiovascular: Regular Rhythm and Other (Tachy)
Respiratory: Clear
GI: Soft, Non Distended, Tender (Diffusely tender) and Normal Bowel Sounds
Neurology: Awake, Alert and No Motor Deficits
Skin: Warm, Good Color and Cyanosis (n)
Labs/Micro/Reports
Lab Data
04/13/24 06:21
Microbiology
04/13/24 08:21 Feces/Stool C. difficile GDH Antigen & Toxins - Final
Negative for toxigenic C.difficile
04/11/24 12:57 Blood/Venous Blood Culture - Preliminary
No Growth in 24 hours- Final report to follow

Documented by User: Alexis Boswell MD 04/13/24 11:14
Assessment
-
28-year-old female with past medical history of insulin-dependent type 1 diabetes presented to the ED with nausea, vomiting, diarrhea, dry mouth, blurry vision, headache, increased thirst, increased frequency of urination, heartburn, body aches all
over, and tingling all over. She has an OmniPod which set off an alarm this morning. Appears she received approximately 16 units of insulin total this am. Typical rate 0.7/hr then drops down to 0.5/hr. She had about 7 episodes of diarrhea on Tuesday
and 7 episodes on Tuesday but resolved. She described the diarrhea as slimy or mucousy 'like an orbie cut in half.' On Tuesday she started throwing up, too many times to count. Stopped around 4:30 AM. Since then she has not eaten anything. 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 She ate at a [employer] on Tuesday and had a buffalo cheesecake on Tuesday, but her partner had no similar symptoms. She
thought that some of her issues may be related to her high blood pressure and wanted to schedule an emergency doctors appointment with her primary provider MAGY Duque, but her mom advised her to come to the ED instead. Her wholesale diamond broker
is Dr. Marcela Maki.
Labs revealed blood glucose 1008, anion gap 30, lactic acid 6, WBC 32.8, hemoglobin 8.6. Patient received 7 units of insulin in ED, started on insulin drip, 1000 mL bolus of LR, 2x 1000 mL bolus of normal saline, and started on Zosyn and vanc.
Impression:
#DKA
#Metabolic acidosis
#Type 1 Diabetes
BG 1008
AG 30
LA 6
#Sepsis secondary to GI source
#leukocytosis with bandemia
#Hypotension
#Hyponatremia
#Anemia
#KB
#Diarrhea
Conditions present prior to admission: Type 1 diabetes, Cannabis hyperemeses syndrome , Ruptures ovarian cyst 12/23/2020, hx Heavy mensus , OFELIA, HTN, anxiety
Plan:
Respiratory
-Keep SpO2 >92% - supplemental O2 as needed
-pCO2 compensated for metabolic acidosis
Endocrinology
-DKA on type 1 DM
-Metabolic acidosis
-BG 1008, AG 30, LA 6 on admission
-Significant improvement Gap now 12
-Transition from NPO to liquid diet when gap closes or as tolerated as BG <200 and bicarb >18
-Discontinue fluids once pt is able to tolerate diet
-Keep urine output >50 cc/hr
-Patients on home insulin pump as of this morning, discontinue insulin drip today
-BMP q4hr
-Replete electrolytes as needed
-Tylenol for pain. Consider hydromorphone if severe rather than morphine due to KB
-PRN zofran for N/V
-Keep SpO2 >92%
-Strict I&O
-If BG <100, use D10% at 50cc/hr while on insulin gtt
- HgA1c 9.3
-Diabetic nurse consult
Cardiovascular
-Sepsis with unclear etiology likely GI with hx mucous-y stools/diarrhea
-Leukocytosis with bands
-Hypotension
-WBC 32.8, Neutrophil bands 8.6, HR 98, BP 104/36 on admission
-UA (-), Covid (-), Chest x-ray no acute cardiopulm etiologies
-CT abd/pelvis revlealed colitis and mild urinary bladder wall thickening
-Given UA negative and previously worked up for interstitial cystitis, UTI unlikely cause for sepsis. More likely episode of colitis. No diarrhea in last 2 days.
-Cont. zosyn
-Monitor WBC
-WBC downtrending
-Stool cultures sent
-Hypotension now resolved and hypertensive. Restart home lisinopril
-Iron deficiency anemia
-hg 8.6, MCV 80
-Iron panel consistent with OFELIA
-Hx of heavy periods
-Transfuse for hg <7
-IV iron per hospitalist team
-Previously unable to tolerate PO iron as it caused vomiting. Unable to pay for outpatient iron transfusion as too expensive.
Renal
-KB likely 2/2 hypovolemia
-Cr 1.7, baseline 0.8
-Resolved
-Restart lisinopril
-Avoid NSAIDs/nephrotoxic agents
GI
-Ab/pelvic CT revealed colitis and urinary bladder wall thickening. No UTI, so likely sepsis secondary to colitis.
-Yancy cultures pending
-Diffuse abdominal tenderness
-PRN zofran for N&V
-DVT SQ heparin - pt refusing but not high risk for DVT. Very active walking around room.
-Diabetic diet
-Full Code
I reviewed this patients case independently and in conjunction with the resident. I personally examined the patient. Patient's complex medical history, laboratory evaluations, events over the last 24 hours, radiographs, microbiological data were
all personally reviewed.
Agree with documented assessment and plan
Alexis Boswell MD, FCCP, DABMANISHA
[2024-04-13] MEDS: ZESTRIL 5 MG PO (11:38)
[2024-04-13 11:52] LABS: Glucose - Point of Care 169 mg/dl (70-99)
--- NOTE | 2024-04-13 12:40 | CM ---
CM following re: discharge planning.
Reviewed pt's chart, met with pt and family at bedside.
D/C plan: remains unchanged, return back home with family. Family to transport at discharge.
CM will follow with discharge plan updates as needed.
[2024-04-13] MEDS: FERRLECIT 110 MG IV (13:14)
--- NOTE | 2024-04-13 13:50 | PTCARENOTE ---
Insulin gtt off. Pt downgraded to M/S. Covered IV and pt showered. Pt ordered lunch but only ate a few bites. Per pt no insulin bolus given via insulin pump. Continues at basal rate. Spouse at bedside.
[2024-04-13] MEDS: ZOFRAN IV (14:30)
[2024-04-13 17:53] LABS: Glucose - Point of Care 121 mg/dl (70-99)
--- NOTE | 2024-04-13 19:37 | PTCARENOTE ---
assumed care of pt at 1515, vat team in to replace iv site for antbiotics which were late r/t no iv access. pt also medicated with zofran as charted for vomiting prior to assuming care of pt. Pt also medicated with dilaudid r/t whole body pain as
charted. Napped after. Pt also vomited after drinking neutraphos. Didn't want dinner, but was encouraged to order, which ordered late. Report to next shift.
--- NOTE | 2024-04-13 20:05 | PTCARENOTE ---
Assumed care of pt. approx 1900. Experiencing cyclic vomiting unable to take Neutra phos dose, or eat dinner provided. House provider notified via TT, of low phos/mag, and poor PO intake of lyte repletment. Awaiting orders. POC completed due to lack
of dinner intake in conjunction to patient insulin pump.
--- NOTE | 2024-04-13 21:06 | PTCARENOTE ---
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
Orders for additonal antiemetics, and additonal pain meds given for pain induced hypertension.
Report given to Floor RN, all orders and care explained.
[2024-04-13 21:23] LABS: Glucose - Point of Care 103 mg/dl (70-99)
[2024-04-13] MEDS: COMPAZINE 5 MG PO (22:06)
[2024-04-13 23:33] LABS: Glucose - Point of Care 99 mg/dl (70-99)
[2024-04-14] MEDS: ZOSYN 50 IV ×2 (01:34→10:01)
[2024-04-14] MEDS: DILAUDID 0.25 MG IV (03:05)
[2024-04-14 06:14] LABS: % Basophils 0.1 % (0-2); % Eosinophils 0.2 % (0-6); % Immature Granulocytes 0.3 % (0-0.5); % Monocytes 7.8 % (1.7-9.3); % Neutrophils 77.6 % (42.2-75.2); Absolute Lymphocytes 1.5 10^3/uL (1.2-3.4); Absolute Monocytes 0.8 10^3/uL (0.1-0.6); Absolute Neutrophils 8.1 10^3/uL (1.4-6.5); Hematocrit 27.4 % (37.0-47.0); Hemoglobin 8.5 g/dL (12.0-16.0); Mean Corpuscular Hgb 25.3 pg (27.0-31.0); Mean Corpuscular Volume 81.5 fL (81.0-99.0); Mean Platelet Volume 9.9 fL (7.4-10.4); Nucleated Red Blood Cells % 0 %; Platelet Count 162 10^3/uL (130-400); Red Blood Cell Count 3.36 10^6/uL (4.20-5.40); Red Cell Dist. Width 16.2 % (11.5-14.5); White Blood Cell Count 10.5 10^3/uL (4.8-10.8)
[2024-04-14 06:34] LABS: Blood Urea Nitrogen 12 mg/dl (7-17); Calcium 8.1 mg/dl (8.4-10.2); Carbon Dioxide 25 mmol/L (22-30); Chloride 104 mmol/L (98-107); Estimated Creatinine Clearance 81 ml/min; Glucose 109 mg/dl (70-99); Magnesium 1.9 mg/dl (1.6-2.3); Phosphorus 1.9 mg/dl (2.5-4.5); Potassium 4.4 mmol/L (3.5-5.1); Sodium 139 mmol/L (135-145); eGFR > 60.00
[2024-04-14 06:55] VITALS: BP 155/100
[2024-04-14 08:03] LABS: Glucose - Point of Care 101 mg/dl (70-99)
[2024-04-14] MEDS: ZESTRIL 5 MG PO (10:00)
[2024-04-14] MEDS: FLUSH (NSS) 2 FLUSH IV (10:01)
[2024-04-14] MEDS: NEUTRA-PHOS POWDER PACKET 250 MG PO (10:01)
--- NOTE | 2024-04-14 11:21 | W.PN.HOSP.TC ---
Today's Communication/Plan
-
Transition to oral Augmentin to complete 7 days
Continue insulin pump
Follow-up with outpatient GI
Assessment / Plan
Assessment / Plan
#DKA
#T1DM
-Hemoglobin A1c 9.3%, suspected that she has poor compliance with insulin pump outpatient
-Suspect that gastrointestinal infection as well as noncompliance led to DKA
-Insulin pump settings: 9 PM to 12 AM-0.55 units/h, 5 AM to 10 AM 0.75 units/h, 10 AM to 3 PM 0.70 units per hour, 3 PM to 9 PM 0.8 units/h
-No known history of microvascular complications from diabetes though is at risk
-Status post IV insulin protocol, anion gap closure; resumed on insulin pump
-Blood glucose has been consistently in 100s on pump here
-Will need to follow-up closely as outpatient with PCP and DM specialist
#Leukocytosis
#Suspected infectious colitis
-Vomiting and diarrhea on admission; Suspect viral gastroenteritis though symptoms could be from DKA itself
-C. difficile testing negative, blood cultures negative, stool cultures remain pending
-Status post course of vancomycin, remains on IV Zosyn without fever or leukocytosis
-Will transition Zosyn to Augmentin to complete 7 days of antibiotics
#Dyspepsia/acid reflux
-Patient states she takes OTC antacids for heartburn symptoms
-Will start famotidine as needed empirically, states this has helped as well in the past
-Should have follow-up with PCP and GI at discharge, consider EGD versus urea breath test
#Hypertension
-Chronically on lisinopril for hypertension; held upon admission for low BP and KB
-No known history of hypertensive systemic disease
-Renal function is normalized, BP today elevated at 155/100
-Will resume lisinopril at discharge, follow-up with PCP for further titration
#History of cyclical vomiting with marijuana
#Marijuana use
-cessation advised
#Iron Deficiency Anemia
-Patient has history of iron deficiency, menorrhagia associated
-Was previously recommended IV iron though was cost prohibitive
-Has had trouble tolerating ferrous sulfate PO in the past
-Will order ferrous gluconate at discharge, have patient follow-up with PCP
-Should have follow-up in outpatient setting with GI
#Severe hepatic steatosis per CT
-outpatient GI follow-up
DVT prophylaxis:subcutaneous heparin
Full code
DC home today
Anticipated Discharge: Today
Subjective/Interval History
-
Date of Service: April 14, 2024
Seen and examined at the bedside. No acute events reported overnight. AFVSS this morning.
Patient feels tired, otherwise states she feels well and would like to leave the hospital. Mentions some dyspeptic symptoms, states she gets heartburn outside of the hospital and takes antacids as needed.
Denies acute complaints including chest pain, dyspnea, fevers or chills, nausea or vomiting, urinary issues, bleeding or bruising, paresthesias or weakness.
Objective Data
-
Labs:
Laboratory Results
04/14/24
05:50
WBC 10.5
Hgb 8.5 L
Hct 27.4 L
Plt Count 162
Sodium 139
Potassium 4.4
Chloride 104
Carbon Dioxide 25
BUN 12
Creatinine 0.9
Glucose 109 H
Calcium 8.1 L
Vital Signs:
Vital Signs
Temp Pulse Resp BP Pulse Ox
97.7 F 57 20 155/100 98
04/14/24 06:55 04/14/24 06:55 04/14/24 06:55 04/14/24 10:00 04/14/24 06:55
I&O
04/13/24 04/14/24 04/15/24
06:59 06:59 06:59
Intake Total 5638 / 6273 555 / 555
Output Total 1200 / 1200
Balance 4768 / 5021 555 / 555
Review of Systems
-
History Source: Patient
All other systems: Reviewed and negative
Physical Exam
-
General: Well Developed, Well Nourished, No Apparent Distress and Comfortable
HEENT: Normocephalic, Atraumatic, Moist Mucous Membranes and Anicteric
Respiratory: Clear to Auscultation and Non Labored Respirations
Cardiac: Regular Rhythm and S1/S2; Negative Murmur, Rub or Gallop
GI: Soft, Nondistended, Normal Bowel Sounds and Tender (Mild, epigastric. No peritoneal signs)
Musculoskeletal: No Clubbing, No Cyanosis and No Edema
Skin: Warm and Dry; Negative Rash
Neuro: AO x 3 and Nonfocal/Grossly Intact; Negative Tremors
Psych: Calm
Data Reviewed
-
Labs: Labs Reviewed by me and Discussed with Patient
--- NOTE | 2024-04-14 11:47 | CM ---
MD entered order for discharge.
Spoke with pt she said she was ready for discharge to home.
She said her brother Benjy can drive her home.
PLAN Home no needs
[2024-04-14 12:02] LABS: Glucose - Point of Care 77 mg/dl (70-99)
[2024-04-14] MEDS: PEPCID 20 MG PO (12:12)
--- NOTE | 2024-04-15 14:07 | W.DCSUMMARY ---
Discharge Summary
Discharge Data
Date of Admission: 04/11/24
Date of Discharge: 04/14/24
-
Pending Results: No
Hospital Course
28-year-old female with type 1 diabetes mellitus, cyclic vomiting syndrome/cannabis hyperemesis, OFELIA, hypertension that presented to the hospital with her home glucometer reading high glucose levels. Also had complaints of fatigue, watery diarrhea.
Upon arrival was found to have metabolic acidosis, anion gap, elevated beta hydroxybutyrate consistent with DKA. Was started on IV insulin drip protocol and ultimately transition back to her insulin pump following closure of anion gap and
toleration of oral diet. Hemoglobin A1c 9.3%, suspect noncompliance with insulin pump/regimen.
Suspected viral gastroenteritis possibly precipitating her DKA. Infectious workup here with stool cultures and C. difficile testing were negative. She was started on Imodium with improvement prior to discharge.
Recommended to follow-up with family doctor and diabetic specialist after discharge from the hospital. Encouraged compliance with her insulin regimen.
Discharge Plan
-
Patient Disposition: Home (Routine Discharge)
Discharge Diagnosis/Procedures: Diabetic ketoacidosis
Gastroenteritis
Iron deficiency anemia
Condition: Good
Diet: As tolerated
Activity: As tolerated
Driving Restrictions: No driving for 24 hours
Bathing Restrictions: None
Blood Work: Hemoglobin A1c in 3 months
Activity Restrictions/Additional Instructions:
Workup of iron deficiency and anemia as outpatient. 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 CT scan also shows that you have fatty liver. This needs to follow-up with a GI doctor. This is important.
Schedule follow-up appointment with your family doctor for within 7 to 14 days of discharge from the hospital
Referrals provided for GI
Instructions: Diabetic ketoacidosis
Referrals:
Jennie Duque CRNP [Family Provider] -
Julieta Resendez DO [Active] -
Prescriptions:
New
famotidine 20 mg Tablet
20 mg PO BID PRN (Reason: heartburn) 30 Days Qty: 60 0RF
amoxicillin-pot clavulanate 875-125 mg tablet
1 tab PO Q12H 5 Days Qty: 10 0RF
Continued
Lisinopril
5 mg PO DAILY
Patient Comments:
no ecw or pharmacy records
Patient Own Insulin Pump
0 unit SC .VIA INSULIN LISPRO
Discharge Orders:
Discharge Patient (As Directed); Ordered 04/14/24
Ordered By: Mamadou Romano
Discharge Date and Time
Discharge Date/Time: 04/14/24 12:38
Print Language: MONGOLIAN
== END 2024-04-14 12:38 | disposition home or self-care (01) | DRG 871 ==
LOC: 4 EAST ACU 13:33
PROVIDERS: Clinical Nurse Specialist Family Health; Hospitalist; Nurse Practitioner Family; ADMITTING PHYSICIAN Hospitalist; ATTENDING PHYSICIAN Internal Medicine; CONSULT PHYSICIAN Internal Medicine Critical Care Medicine; EMERGENCY PHYSICIAN Emergency Medicine; FAMILY PHYSICIAN Nurse Practitioner Family
DX: A41.9 Sepsis, unspecified organism (principal); E10.10 Type 1 diabetes mellitus with ketoacidosis without coma; A09 Infectious gastroenteritis and colitis, unspecified; E87.1 Hypo-osmolality and hyponatremia; N17.9 Acute kidney failure, unspecified; D50.9 Iron deficiency anemia, unspecified; E86.1 Hypovolemia; I10 Essential (primary) hypertension; F41.9 Anxiety disorder, unspecified; N92.0 Excessive and frequent menstruation with regular cycle; K76.0 Fatty (change of) liver, not elsewhere classified; F12.90 Cannabis use, unspecified, uncomplicated; I95.9 Hypotension, unspecified; T38.3X6A Underdosing of insulin and oral hypoglycemic [antidiabetic] drugs, initial encounter; E83.42 Hypomagnesemia; E83.39 Other disorders of phosphorus metabolism; Z96.41 Presence of insulin pump (external) (internal); Z79.899 Other long term (current) drug therapy; Z11.52 Encounter for screening for COVID-19; Z91.199 Patient's noncompliance with other medical treatment and regimen due to unspecified reason
CPT/HCPCS: 71046; 74176; 80048; 80053; 80202; 80306; 80307; 81003; 81015; 82010; 82306; 82607; 82728; 82746; 82805; 82947; 82962; 83036; 83540; 83550; 83605; 83735; 84100; 84703; 85025; 87040; 87045; 87046; 87070; 87324; 87427; 87449; 87811; 93005; 96361; 96365; 96375; 99291; J2916

== ENCOUNTER 2024-05-25 08:24 | Emergency (ER) | payer BC, SELFPAY ==
[2024-05-25 08:25] VITALS: BP 127/69
[2024-05-25] MEDS: ZOFRAN ODT (ORALLY DISINTEGRATING) 4 MG PO (08:37)
[2024-05-25 08:39] LABS: Glucose - Point of Care 269 mg/dl (70-99)
[2024-05-25 08:54] LABS: % Basophils 0.2 % (0-2); % Eosinophils 0.2 % (0-6); % Immature Granulocytes 0.4 % (0-0.5); % Lymphocytes 7.8 % (20.5-51.1); % Neutrophils 84.4 % (42.2-75.2); Absolute Immature Granulocytes 0.1 10^3/uL (0-0.05); Absolute Lymphocytes 1.1 10^3/uL (1.2-3.4); Absolute Neutrophils 12.3 10^3/uL (1.4-6.5); Hematocrit 33.5 % (37.0-47.0); Hemoglobin 11.1 g/dL (12.0-16.0); Mean Corp Hgb Conc. 33.1 g/dL (33.0-37.0); Mean Corpuscular Hgb 25.8 pg (27.0-31.0); Mean Corpuscular Volume 77.7 fL (81.0-99.0); Mean Platelet Volume 10.4 fL (7.4-10.4); Nucleated Red Blood Cells % 0 %; Platelet Count 245 10^3/uL (130-400); Red Blood Cell Count 4.31 10^6/uL (4.20-5.40); Red Cell Dist. Width 17.9 % (11.5-14.5); White Blood Cell Count 14.6 10^3/uL (4.8-10.8)
--- NOTE | 2024-05-25 09:12 | ED.GENMED ---
History of Present Illness
General
Chief Complaint: Abnormal Lab Value
Source: patient and spouse
Time Seen by Provider: 05/25/24 08:57
History of Present Illness
History of Present Illness:
This patient is a 28-year-old female presents emergency department with complaints of her pump malfunction in the overnight time. Between Tuesday and . She woke and her blood sugar was 342. She changed her pump, and within an hour she
has developed vomiting associated with increasing blood sugars. Last night she was able to get her blood sugar down to 170. She woke this morning with a blood sugar of 118 but it is now gone up to 210, and she continues to vomit. She describes
generalized abdominal discomfort and a slight right-sided headache. She is currently menstruating. She denies urinary symptoms, chest pain, shortness of breath, cough, fever, chills, sore throat, nasal congestion. She has mild rhinorrhea. She
has had recent loose stools. She denies blood in her stools.
Past History
Past History
ED Past Medical History: HTN, IDDM, Psychiatric (Anxiety) and Other (Gastritis)
ED Past Surgical History: Other (Adenoidectomy)
Social History
Tobacco: Non-smoker
Alcohol: Occasional
Drug: Marijuana (daily)
Personal:
Living: with family
Employment: Employed
Family History
Family History: Diabetes
Phy Exam
Physical Exam
Physical Exam:
GENERAL: Alert , in no apparent distress, pleasant
EYE: pupils equal and reactive
NECK: Supple, no significant adenopathy.
ENT: o/p clr, mm slightly dry
CARDIAC: Regular rate and rhythm .
LUNGS: Clear breath sounds bilaterally, no acute respiratory distress, no wheezes/rales/rhonchi
ABDOMEN: Soft, generalized mild tenderness, no r/g, no cvat
NEUROLOGICAL: Alert and oriented, no focal neuro deficits
SKIN: Warm and dry, skin intact.
MUSCULOSKELETAL: No edema, well perfused.
PSYCH: Normal and appropriate interaction.
Course
Orders/Labs/Results
Orders:
Orders
05/25/24 08:34
Ondansetron Orally Disint [Zofran Odt (Orally Disintegrating)] 4 mg .ROUTE .STK-MED ONE
05/25/24 08:36
Complete Blood Count/With Diff Urgent
Comprehensive Metabolic Panel Urgent
HCG, Serum Qualitative Screen Urgent
Comment: ADD ON
Lipase Urgent
Ondansetron Orally Disint [Zofran Odt (Orally Disintegrating)] 4 mg PO NOW STA
05/25/24 08:48
Test Result ONCE
05/25/24 09:19
CT Abd/Pel (IV only)-DH only Urgent
Comment:
Reason For Exam: diffuse abd pain
0.9% Sodium Chloride 1000 ml [Nss] 1,000 ml IV BOLUS
05/25/24 10:18
Add On- LAB Urgent
Tests Added?: hcg qualitative
05/25/24 10:19
0.9% Sodium Chloride 1000 ml [Nss] 1,000 ml IV BOLUS
05/25/24 11:30
Urinalysis Reflex To Culture Urgent
Date Specimen was Collected: 05/25/24
Time Specimen was Collected: 11:23
Urine Microscopic Reflex Cult Urgent
Abnormal Lab Results
05/25/24 05/25/24 05/25/24
08:36 08:37 11:30
WBC 14.6 H 10^3/uL
(4.8-10.8)
Hgb 11.1 L g/dL
(12.0-16.0)
Hct 33.5 L %
(37.0-47.0)
MCV 77.7 L fL
(81.0-99.0)
MCH 25.8 L pg
(27.0-31.0)
RDW 17.9 H %
(11.5-14.5)
Abs Immat Gran (auto) 0.1 H 10^3/uL
(0-0.05)
Absolute Neuts (auto) 12.3 H 10^3/uL
(1.4-6.5)
Absolute Lymphs (auto) 1.1 L 10^3/uL
(1.2-3.4)
Absolute Monos (auto) 1.0 H 10^3/uL
(0.1-0.6)
Neutrophils % 84.4 H %
(42.2-75.2)
Lymphocytes % 7.8 L %
(20.5-51.1)
Chloride 94 L mmol/L
(98-107)
Glucose 252 H mg/dl
(70-99)
Urine Ketones 3+ A
(Negative)
Ur Occult Blood Reflex 2+ A
(Negative)
Urine RBC 3-6 A /HPF
(0-2)
POC Glucose 269 H mg/dl
(70-99)
05/25/24 08:36
05/25/24 08:36
Vital Signs
Initial and Last Documented VS:
Initial Vital Signs
Temp Pulse Resp BP Pulse Ox
98.9 F 89 20 127/69 99
05/25/24 08:25 05/25/24 08:25 05/25/24 08:25 05/25/24 08:25 05/25/24 08:25
Last Documented Vital Signs
Temp Pulse Resp BP Pulse Ox
98.9 F 75 18 162/86 100
05/25/24 08:25 05/25/24 11:22 05/25/24 11:22 05/25/24 11:22 05/25/24 11:22
*Critical Care Note
Total Time (30-74mins, 75-104mins- exclusive of procedures): Not Applicable
Update Note
Update Note:
Patient presents to the Emergency Department with hyperglycemia, vomiting, abdominal pain
Number and Complexity of Problems Addressed at the Encounter
� Chronic conditions affecting care:diabetes
� Acute Exacerbation and/or Progression of Chronic Illness:
� Differential Diagnosis includes: But not limited to DKA, gastroenteritis, cholecystitis, appendicitis, etc. etc.
Amount and/or Complexity of Data to be Reviewed and Analyzed
� I performed an independent evaluation of and my interpretation is:
EKG:
CT: read by rads: Moderate diffuse bladder wall thickening concerning for cystitis or bladder outlet obstruction. Progressed.
Hypodense hepatic lesions likely small cysts or hemangiomas or focal fatty infiltration.
Right cortical renal scarring. Stable
Xrays:
Laboratory Studies: White blood cell count elevation, mild anemia
Other:
� Review of other/old records reveals:
� Clinical information was obtained by an independent historian:
� Prescriptions/Medications Considered but not given:
� Further testing considered but not performed:
Risk of Complications and/or Morbidity or Mortality of Patient Management
� Social determinants of health affecting care:
� Discussion with other providers (PCP, Hospitalists, Consultants, etc):
� Escalation of care including admission/observation vs risk of discharge considered: 12:16 PM patient drinking water blood sugar currently 110, no nausea or vomiting, no abdominal discomfort. Urine noted I suspect blood due to
the fact the patient is currently menstruating. She is not acidotic and I do not suspect DKA. I clinically suspect that patient developed a gastroenteritis contributing to her vomiting that is now resolved. CT noted along with finding of
questionable cystitis versus bladder outlet obstruction. Patient is urinating normally and not retaining, denies dysuria etc. UA not suspicious for infectious cystitis. Patient will be given copy of CT and advised to follow-up regarding.
ED Attending Note
-
Portions of this chart may have been created with voice recognition software.� Occasional wrong word or��sound alike� substitutions may have occurred due to the inherent limitations of voice recognition software.
Discharge Plan
Departure
Patient Disposition: Home (Routine Discharge)
Date of Disposition: 05/25/24
Time of Disposition: 12:17
Patient with high blood pressure during this ER visit?: Yes
Condition: Good
Discharge Problem:
Nausea and vomiting, Diabetes
Instructions: BLOOD PRESSURE, Acute Nausea and Vomiting
Prescriptions:
No Action
Lisinopril
5 mg PO DAILY
Patient Comments:
no ecw or pharmacy records
Patient Own Insulin Pump
0 unit SC .VIA INSULIN LISPRO
famotidine 20 mg Tablet
20 mg PO BID PRN (Reason: heartburn) 30 Days Qty: 60 0RF
amoxicillin-pot clavulanate 875-125 mg tablet
1 tab PO Q12H 5 Days Qty: 10 0RF
Referrals:
Jennie Duque CRNP [Family Provider] - Follow up in 2-3 days
Activity Restrictions/Additional Instructions:
PLEASE SEE ATTACHED CAT SCAN REPORT. YOU SHOULD FOLLOW-UP WITH YOUR PRIMARY CARE DOCTOR NEXT WEEK REGARDING. IF YOU DEVELOP VOMITING, FEVER, CHILLS, CHEST PAIN, SHORTNESS OF BREATH, ABDOMINAL PAIN, ELEVATED BLOOD SUGARS, OR OTHER WORRISOME SIGNS,
PLEASE RETURN TO THE ER IMMEDIATELY.
Interventions
Interventions:
*Risk Screen - Suicide Last Done: 05/25/24 09:33
*General Assessment Last Done: 05/25/24 08:25
*Neglect/Abuse Screening Last Done: 05/25/24 08:25
*ED COVID-19 Vaccine History Last Done: 05/25/24 09:33
Discharge Date and Time
Print Language: PALAUAN
[2024-05-25 09:22] LABS: ALT (SGPT) 18 U/L (0-35); AST (SGOT) 24 U/L (14-36); Albumin 4.6 g/dl (3.5-5.0); Alkaline Phosphatase 111 U/L (38-126); Blood Urea Nitrogen 14 mg/dl (7-17); Calcium 9.3 mg/dl (8.4-10.2); Carbon Dioxide 26 mmol/L (22-30); Chloride 94 mmol/L (98-107); Glucose 252 mg/dl (70-99); Lipase 32 U/L (23-300); Potassium 3.5 mmol/L (3.5-5.1); Sodium 135 mmol/L (135-145); Total Bilirubin 0.8 mg/dl (0.2-1.3); Total Protein 7.4 g/dl (6.3-8.2); eGFR > 60.00
[2024-05-25] MEDS: NSS 1000 IV ×2 (09:32→10:20)
[2024-05-25 10:49] LABS: HCG, Serum Qualitative Screen Negative
[2024-05-25 11:22] VITALS: BP 162/86
[2024-05-25 11:54] LABS: Urine Albumin Trace (Neg - Trace); Urine Bilirubin Negative (Negative); Urine Character Clear (Clear); Urine Color Yellow; Urine Glucose Negative (Negative); Urine Ketone 3+ (Negative); Urine Leukocyte Negative (Negative); Urine Nitrite Negative (Negative); Urine Occult Blood 2+ (Negative); Urine Specific Gravity 1.015 (<1.030); Urine Urobilinogen Negative (Neg - 1+)
== END 2024-05-25 12:26 | disposition home or self-care (01) ==
LOC: EMR 08:24
PROVIDERS: Emergency Medicine; EMERGENCY PHYSICIAN Emergency Medicine; FAMILY PHYSICIAN Nurse Practitioner Family
DX: R11.2 Nausea with vomiting, unspecified (principal); I10 Essential (primary) hypertension; E11.9 Type 2 diabetes mellitus without complications
CPT/HCPCS: 99285; 96360; 74177; 80053; 81003; 81015; 82962; 83690; 84703; 85025; Q9967

== ENCOUNTER 2024-06-11 14:55 | Inpatient (IN) | payer BC, SELFPAY ==
[2024-06-11] VITALS (30 sets, daily range): BP systolic 80–135; BP diastolic 27–85; BMI 23.9; BMI 25.1
[2024-06-11 12:30] LABS: Glucose - Point of Care > 600 mg/dl (70-99)
--- NOTE | 2024-06-11 12:51 | ED.GENMED ---
History of Present Illness
General
Chief Complaint: Blood Sugar Problem
Source: patient and significant other
Exam Limitations: none
Time Seen by Provider: 06/11/24 12:43
Nursing documentation reviewed up to this point in time: agreed with
History of Present Illness
History of Present Illness:
28-year-old female with history of hypertension, hyperlipidemia, insulin-dependent diabetes who presents to the emergency department for evaluation of multiple complaints; she is accompanied by her partner who provides collateral history.
Apparently over the past 24 hours patient has developed confusion, chills, chest pain, racing heart, paresthesias. She is having some epigastric pain and nausea with some dry heaving. Apparently her sugars were noted to be very high; has had
similar symptoms in the past with DKA. Patient seems to say that her insulin pump has not been working over the past 24 hours although her partner says that it has been working. Partner says that yesterday prior to symptom onset patient was
drinking some alcohol and did not eat very much and so initially partner thought that symptoms were from drinking on an empty stomach however when symptoms worsened this morning they came to the emergency room for assessment.
Past History
Past History
ED Past Medical History: HTN, IDDM, Psychiatric (Anxiety) and Other (Gastritis)
ED Past Surgical History: Other (Adenoidectomy)
Social History
Tobacco: Non-smoker
Alcohol: Occasional
Drug: Marijuana (daily)
Personal:
Living: with family
Employment: Employed
Family History
Family History: Diabetes
Review of Systems
Review of Systems
All Other Systems: ROS reviewed and negative except as documented in HPI and ROS
Constitutional: Reports fatigue and chills; Denies fever
EENT: Denies sore throat
Respiratory: Denies trouble breathing
Cardiac: Reports chest pain and palpitations
ABD/GI: Reports abdominal pain, nausea and vomiting
: Denies flank pain
Musculoskeletal: Denies neck pain or back pain
Neurological: Reports dizzy and headache
Phy Exam
Physical Exam
Physical Exam:
General: Awake, alert, oriented x3; laying on her side appears uncomfortable, emesis bag nearby
Head: Normocephalic, atraumatic
Eyes: Conjunctiva normal, sclera anicteric
Throat: Airway intact, dry mucous membrane
Neck: Trachea midline, supple without meningismus
Lungs: Clear to auscultation bilaterally, no wheezing, rales, rhonchi
Heart: Tachycardia with rhythm, no murmurs, gallops, or rubs
Abd: Soft, non distended, tender to palpation in the epigastrium
Neuro: No gross deficit
Skin: Warm and dry
Extremities: No edema in extremities, equal pulses in all extremities
Scores
Heart Failure Risk
Heart Failure Risk Score: Not Applicable
Heart Score for Chest Pain Patients
STEMI patient?: Not applicable
Withdrawal Assessment of Alcohol
Withdrawal Assessment Completed?: Not applicable
Course
Orders/Labs/Results
Orders:
Orders
06/11/24 Lunch
NPO
Allow oral meds: No
Allow clear liquids: No
NPO with Ice Chips: Yes
06/11/24 12:22
Calcium CHLORIDE [Calcium Chloride 10% Syringe] 2,000 mg .ROUTE .STK-MED ONE
06/11/24 12:44
Electrocardiogram (*1) Urgent
Reason for Study: Bradycardia / Tachycardia
EKG- Treatment ONCE
0.9% Sodium Chloride 1000 ml [Nss] 1,000 ml IV BOLUS
Lactated Ringers [Lr] 1,000 ml IV BOLUS
06/11/24 12:50
HYDROmorphone [Dilaudid] 0.5 mg IV NOW STA
06/11/24 12:51
Acetone [B-Hydroxybutyrate] Urgent
COVID-19 Antigen Urgent
Source: Nasal Swab
Complete Blood Count/With Diff Urgent
Comprehensive Metabolic Panel Urgent
HCG, Serum Qualitative Screen Urgent
Lipase Urgent
Magnesium Urgent
Influenza A+B Rapid Molecular Urgent
SHARONA Source: Nasal Swab
Specimen Description:
CR Chest Portable - 1 View Urgent
Comment:
Reason For Exam: chest pain
Reason Study Needs to be Portable: Unable to Transport
06/11/24 12:52
Test Result ONCE
06/11/24 13:09
Troponin I Urgent
Urinalysis Reflex To Culture Urgent
Date Specimen was Collected: 06/11/24
Time Specimen was Collected: 13:08
Venous Blood Gas Urgent
%Oxygen/Room Air: 100
06/11/24 13:20
Blood Culture Q30M
SHARONA Source: Blood/Venous
Specimen Description:
06/11/24 13:31
IV Insert/Care/Rem.- Treatment PRN
Insulin Human Regular [Novolin R] 7 units IV NOW STA
06/11/24 13:32
Piperacillin/Tazo 3.375 Gram [Zosyn] 3.375 gram in 50 ml IV NOW
06/11/24 13:33
Lactated Ringers [Lr] 1,000 ml IV BOLUS
06/11/24 13:34
Reg Insulin 100 Units/100 ml [Novolin R Insulin Infusion] 100 units in 100 ml IV NOW
06/11/24 13:35
Vancomycin [Vancocin] 1,500 mg 0.9% Sodium Chloride 500 ml [Nss] 500 ml IV NOW
06/11/24 13:48
Magnesium Sulfate 2 Gram/50 ml [Magnesium Sulfate] 2 gram in 50 ml .ROUTE .STK-MED
06/11/24 13:51
Albuterol Nebs [Ventolin Nebules] 2.5 mg .ROUTE .STK-MED ONE
06/11/24 13:54
Calcium CHLORIDE [Calcium Chloride 10% Syringe] 500 mg IV NOW STA
06/11/24 13:55
Albuterol Nebs [Ventolin Nebules] 2.5 mg INH R NOW STA
Magnesium Sulfate 2 Gram/50 ml [Magnesium Sulfate] 2 gram in 50 ml IV NOW
06/11/24 13:57
Calcium CHLORIDE [Calcium Chloride 10% Syringe] 1,000 mg IV NOW STA
06/11/24 14:13
Admit/Transfer Patient As Directed
Co-Sign Provider:
Level of Care: Inpatient admission
Assign to:: ICU
Physician / Group: Philipp Lucas
Diagnosis: DKA
Reason for Hospitalization: DKA
Expected length of stay greater than two midnights?: Yes
ELOS- Estimated Length of Stay in days: 4
I certify the patient meets the requirements for IP care: Yes
PRN Pain Medication Management As Directed
May give lesser potent ordered pain med per pt: Yes
preference::
Protocol:: Medication orders for pain may be administered in a
manner that supports deferring to patient preference
when the pt is:
- Requesting an ordered lesser potent pain medication.
Least to most potent pain medications are defined
as: acetaminophen < NSAID < tramadol < opioids
(morphine, oxycodone, hydromorphone).
- Requesting a lesser dose of the same medication IF
ORDERED.
- Requesting a less intrusive route of administration
if both routes are prescribed by the provider (PO <
IV).
06/11/24 14:15
Code Status As Directed
Resuscitation Status: Full Code
06/11/24 14:57
0.9% Sodium Chloride 1000 ml [Nss] 1,000 ml IV 1,000 mls/hr
Reg Insulin 100 Units/100 ml [Novolin R Insulin Infusion] 100 units in 100 ml IV PER PROTOCOL
Currently infusing. Continue current dose and titrate:: Yes
06/11/24 14:57
Admit Patient As Directed
Co-Sign Provider:
Level of Care: Inpatient admission
Assign to:: ICU
Physician / Group: Philipp Lucas
Diagnosis: DKA
Reason for Hospitalization: DKA
Expected length of stay greater than two midnights?: Yes
ELOS- Estimated Length of Stay in days: 4
I certify the patient meets the requirements for IP care: Yes
DIETARY CONSULT Routine
Reason for Consult: DKA
Activity As Directed
Activity Level: As Tolerated
Bedside Glucose Monitoring As Directed
Frequency: Q1H
Intake/ Output As Directed
Frequency: Per unit guidelines
Notify MD As Directed
Notify physician if: Nurse to contact provider when glucose reaches 250 to obtain orders for D5 0.45 NaCl
Pneumatic Compression Sleeves As Directed
Type: Knee high
Pneumatic Compression Sleeves As Directed
Type: Knee high
Vital Signs As Directed
Frequency: q1h
PRN Pain Medication Management As Directed
May give lesser potent ordered pain med per pt: Yes
preference::
Protocol:: Medication orders for pain may be administered in a
manner that supports deferring to patient preference
when the pt is:
- Requesting an ordered lesser potent pain medication.
Least to most potent pain medications are defined
as: acetaminophen < NSAID < tramadol < opioids
(morphine, oxycodone, hydromorphone).
- Requesting a lesser dose of the same medication IF
ORDERED.
- Requesting a less intrusive route of administration
if both routes are prescribed by the provider (PO <
IV).
DX Deep Vein Thrombosis Video Routine
DX Deep Vein Thrombosis Video Routine
06/11/24 16:05
Blood Culture Q30M
SHARONA Source: Blood/Venous
Specimen Description:
06/11/24 19:25
Arterial Blood Gas Routine
%Oxygen/Room Air: 96
06/11/24 21:39
Complete Blood Count/No Diff Urgent
Glycohemoglobin (HgbA1c) Urgent
Abnormal Lab Results
06/11/24 06/11/24 06/11/24
12:29 12:51 13:09
WBC 36.1 H 10^3/uL
(4.8-10.8)
RBC 3.97 L 10^6/uL
(4.20-5.40)
Hgb 10.0 L g/dL
(12.0-16.0)
Hct 31.9 L %
(37.0-47.0)
MCV 80.4 L fL
(81.0-99.0)
MCH 25.2 L pg
(27.0-31.0)
MCHC 31.3 L g/dL
(33.0-37.0)
RDW 18.7 H %
(11.5-14.5)
MPV 10.8 H fL
(7.4-10.4)
Abs Immat Gran (auto) 1.1 H 10^3/uL
(0-0.05)
Absolute Neuts (auto) 29.2 H 10^3/uL
(1.4-6.5)
Absolute Monos (auto) 2.7 H 10^3/uL
(0.1-0.6)
Immature Gran % 3.0 H %
(0-0.5)
Neutrophils % 80.8 H %
(42.2-75.2)
Lymphocytes % 8.2 L %
(20.5-51.1)
VBG pH 7.13 L*
(7.32-7.43)
VBG pCO2 24 L mmHg
(35-48)
VBG pO2 155 H mmHg
(30-50)
VBG HCO3 8.0 L mmol/L
(22-27)
Sodium 127 L mmol/L
(135-145)
Potassium 6.0 H mmol/L
(3.5-5.1)
Chloride 80 L mmol/L
(98-107)
Carbon Dioxide < 5 L* mmol/L
(22-30)
BUN 34 H mg/dl
(7-17)
Creatinine 2.0 H mg/dL
(0.6-1.0)
Glucose 1235 H* mg/dl
(70-99)
AST 38 H U/L
(14-36)
Urine Ketones 1+ A
(Negative)
Urine Glucose 3+ A
(Negative)
B-Hydroxybutyrate 5.47 H mmol/L
(0.02-0.27)
POC Glucose > 600 H* mg/dl
(70-99)
06/11/24 12:51
06/11/24 13:45
Vital Signs
Initial and Last Documented VS:
Initial Vital Signs
Temp Pulse Resp BP Pulse Ox
36.4 C 134 16 109/82 100
06/11/24 12:27 06/11/24 12:27 06/11/24 12:27 06/11/24 12:27 06/11/24 12:27
Last Documented Vital Signs
Temp Pulse Resp BP Pulse Ox
36.4 C 104 17 106/66 97
06/11/24 12:27 06/11/24 18:30 06/11/24 18:30 06/11/24 18:30 06/11/24 20:00
MDM/Problems Addressed
Differential Diagnosis Includes:
DKA, HHNK, hyperglycemia with dehydration;these things can be triggered by infection, ACS, noncompliance, mechanical failure (i.e. pump failure), etc
MDM/Problems Addressed:
28-year-old female with history as documented presents for multiple complaints consistent with prior episodes of DKA; symptoms started over the past 24 hours. There is a question of whether insulin pump has been working properly. Currently turned
off. She is tachycardic but otherwise normal vital. Her Accu-Chek was greater than [address]. [address] an IV send labs including a CBC and a CMP, lipase, acetone level, VBG. Swab for COVID and flu, check urinalysis and chest x-ray. Resuscitation,
initiate insulin pending chemistry. Treat pain. Monitor closely reassess after the above.
Labs reviewed: CBC shows marked leukocytosis of 36; infection must be considered but suspect significant hemoconcentration contributing to this as well. Blood culture sent off. Will cover with broad-spectrum antibiotics at least upfront with
multiple SIRS criteria and DKA. CMP shows pseudohyponatremia, blood glucose 1235. Potassium 6.0. Bicarb less than 5. KB with a creatinine of 2.0. LFTs normal. Lipase normal. Urinalysis positive for ketones but no infection. Chest x-ray no
pneumonia on my review. Will provide insulin bolus and start insulin infusion. Continue with vigorous fluid resuscitation. Admit to the hospitalist for acute diabetic ketoacidosis. Case discussed with hospitalist for admission.
Prior to hospitalist evaluation I was called by the nurse because patient heart rate increased to over 200 both on the monitor and by palpation of pulse manually. She is awake and alert, denies feeling dizzy. She is normotensive. QRS wide-complex
on the monitor concern for ventricular tachycardia confirmed on EKG. A second IV was placed patient was given calcium chloride, magnesium 2 g IV push, sodium bicarbonate as well as an albuterol nebulizer treatment. Heart rate decreased down to
narrow complex sinus tachycardia. Insulin bolus given and infusion is in progress. Resident was at bedside, hospitalist updated. Continue to monitor very closely, fluid resuscitation. Warrants ICU admission.
Chronic conditions affecting care:
Insulin-dependent diabetes
*Radiology
Radiology exam reviewed: preliminary read by ED provider and radiology read reviewed
*Pulse Oximetry
Patient hypoxic: no
*Critical Care Note
Total Time (30-74mins, 75-104mins- exclusive of procedures): 41
comment:
Critical care statement: A total of 41 minutes of critical care time was provided for this patient. This includes management of unstable vital signs, evaluation of the patient at bedside, frequent reassessment, discussion with
consultants/hospitalist, and review of pertinent medical records. This time was separate from time utilized to perform any aforementioned documented procedures
Data Reviewed
Review of Other/Old Records Reveals: Labs, Records and Discharge Summary
Source: patient and significant other
Patient Management
Discussion with other providers: Hospitalist (Discussed with hospitalist)
Escalation/DeEscalation of care consider admission/obs:
Admission indicated
ED Attending Note
-
Portions of this chart may have been created with voice recognition software.� Occasional wrong word or��sound alike� substitutions may have occurred due to the inherent limitations of voice recognition software.
Discharge Plan
Departure
Patient Disposition: Admit
Date of Disposition: 06/11/24
Time of Disposition: 13:34
Admit to doctor: Jackie
Presentation/result/management discussed w/ accepting MD/DO: Hospitalist
Discharge Problem:
DKA (diabetic ketoacidosis), KB (acute kidney injury), Acute hyperkalemia, Ventricular tachycardia
Interventions
Interventions:
*Risk Screen - Suicide Last Done: 06/11/24 14:00
*General Assessment Last Done: 06/11/24 14:00
*Neglect/Abuse Screening Last Done: 06/11/24 14:00
ED- Fall Risk Assessment Last Done: 06/11/24 14:00
*ED COVID-19 Vaccine History Last Done: 06/11/24 14:00
*Nursing Disposition Last Done: 06/11/24 15:07
ED- Cardiac Assessment Last Done: 06/11/24 14:00
ED- Neurological Assessment Last Done: 06/11/24 14:00
ED- Pulmonary Assessment Last Done: 06/11/24 14:00
Discharge Date and Time
Discharge Date/Time: 06/11/24 15:00
[2024-06-11] MEDS: DILAUDID 0.5 MG IV ×2 (12:55→23:06)
[2024-06-11] MEDS: NSS 1000 IV ×2 (13:00→16:26)
[2024-06-11 13:06] LABS: Hematocrit 31.9 % (37.0-47.0); Mean Corp Hgb Conc. 31.3 g/dL (33.0-37.0); Mean Corpuscular Hgb 25.2 pg (27.0-31.0); Mean Corpuscular Volume 80.4 fL (81.0-99.0); Mean Platelet Volume 10.8 fL (7.4-10.4); Platelet Count 301 10^3/uL (130-400); Red Blood Cell Count 3.97 10^6/uL (4.20-5.40); Red Cell Dist. Width 18.7 % (11.5-14.5); White Blood Cell Count 36.1 10^3/uL (4.8-10.8)
[2024-06-11 13:24] LABS: COVID-19 Antigen Negative (Negative)
[2024-06-11 13:25] LABS: AST (SGOT) 38 U/L (14-36); Albumin 4.8 g/dl (3.5-5.0); Alkaline Phosphatase 122 U/L (38-126); Blood Urea Nitrogen 34 mg/dl (7-17); Calcium 9.1 mg/dl (8.4-10.2); Carbon Dioxide < 5 mmol/L (22-30); Chloride 80 mmol/L (98-107); Glucose 1235 mg/dl (70-99); Sodium 127 mmol/L (135-145); Total Protein 6.7 g/dl (6.3-8.2); eGFR 34.47
[2024-06-11 13:25] LABS: Venous Blood Gas B.E. -19.6 mmol/L (-4 to +4); Venous Blood Gas O2 Sat % 99.8 %; Venous Blood Gas pCO2 24 mmHg (35-48); Venous Blood Gas pO2 155 mmHg (30-50)
[2024-06-11 13:26] LABS: ALT (SGPT) 34 U/L (0-35); Lipase 96 U/L (23-300); Magnesium 1.8 mg/dl (1.6-2.3)
[2024-06-11 13:26] LABS: Urine Albumin Negative (Neg - Trace); Urine Bilirubin Negative (Negative); Urine Character Clear (Clear); Urine Color Yellow; Urine Glucose 3+ (Negative); Urine Ketone 1+ (Negative); Urine Leukocyte Negative (Negative); Urine Nitrite Negative (Negative); Urine Occult Blood Negative (Negative); Urine Specific Gravity 1.015 (<1.030); Urine Urobilinogen Negative (Neg - 1+)
[2024-06-11 13:27] LABS: Venous Blood Gas pH 7.13 (7.32-7.43)
[2024-06-11 13:31] LABS: % Basophils 0.4 % (0-2); % Eosinophils 0.1 % (0-6); % Lymphocytes 8.2 % (20.5-51.1); % Monocytes 7.5 % (1.7-9.3); % Neutrophils 80.8 % (42.2-75.2); Absolute Basophils 0.1 10^3/uL (0-0.2); Absolute Immature Granulocytes 1.1 10^3/uL (0-0.05); Absolute Monocytes 2.7 10^3/uL (0.1-0.6); Absolute Neutrophils 29.2 10^3/uL (1.4-6.5); Nucleated Red Blood Cells % 0 %
[2024-06-11 13:33] LABS: HCG, Serum Qualitative Screen Negative
[2024-06-11] MEDS: LR 1000 IV ×2 (13:33→14:14)
[2024-06-11 13:37] LABS: B-Hydroxybutyrate 5.47 mmol/L (0.02-0.27)
[2024-06-11] MEDS: VENTOLIN NEBULES 2.5 MG INH (13:55)
[2024-06-11] MEDS: MAGNESIUM SULFATE 50 IV (13:56)
[2024-06-11] MEDS: CALCIUM CHLORIDE 10% SYRINGE 1000 MG IV (13:57)
[2024-06-11] MEDS: NOVOLIN R 7 UNITS IV (13:59)
[2024-06-11] MEDS: NOVOLIN R INSULIN INFUSION 100 IV ×2 (14:00→22:19)
[2024-06-11] MEDS: ZOSYN 50 IV (14:14)
[2024-06-11] MEDS: VANCOCIN 530 MG IV (14:38)
[2024-06-11 15:27] LABS: Glucose - Point of Care > 600 mg/dl (70-99)
[2024-06-11 15:59] LABS: Glucose 860 mg/dl (70-99)
--- NOTE | 2024-06-11 16:00 | PTCARENOTE ---
1450-Received pt from Ed via stretcher.
Pt is awake and alert.Speech is appropriate.+5/5 EVANGELISTA.c/o diplopia,but states that she does have h/o diabetic neuropathy.c/o whole body pain.MD made aware.Gait is steady.ST with occasional PVCs noted.IVF and Insulin gtt infusing.Right midline place
by VAT RN.Lungs CTA.POX 99% on RA.NPO.No emesis.Voiding yellow urine.Skin integrity intact.Pt removed her insulin pump upon admission to ICU.Pt's at bedside.Plan of care discussed.
[2024-06-11] MEDS: NSS IV (16:15)
[2024-06-11 16:17] LABS: Blood Urea Nitrogen 33 mg/dl (7-17); Calcium 9.7 mg/dl (8.4-10.2); Carbon Dioxide 9 mmol/L (22-30); Chloride 92 mmol/L (98-107); Estimated Creatinine Clearance 40 ml/min; Potassium 4.2 mmol/L (3.5-5.1); Sodium 131 mmol/L (135-145); eGFR 34.47
--- NOTE | 2024-06-11 16:29 | CON.INTV ---
Consultation
Consultation Request
Date/Time Consultation Requested: 06/11/2024
Date/Time Consultation Performed: 06/11/2024
Requesting Provider: Philipp Lucas MD
Performing Provider: Kenzie Morris MD
Reason for Consultation: DKA Management
Medical History
-
History of Present Illness:
Patient is a 28 years old with a past medical history of hypertension, hyperlipidemia and insulin-dependent DM who presented to the ER due to developing confusion, chills,chest pain, racing heart, vomiting and abdominal pain this morning. The
patient had a history of hospitalization about 1 year ago for DKA and has an insulin pump which needs be changed in every 3 days (100 units). The patient reported that her insulin pump was changed yesterday but she was not checking her blood sugar
levels closely. Per patient and patient's friend, the patient was not eating well since last week and she drank some alcohol yesterday with a small amount of food. . She reports generalized pain on her all body.
Past Medical History
Past Medical History: HTN, Hypercholesterolemia and IDDM
Past Surgical History: Other (Adenoidectomy age 5)
Social History
Tobacco: Smoker (vaping nicotine/ smoking marijuana)
Alcohol: Occasional
Drug: None
Personal: Single
Living: With Family
Allergies / Home Medications
Allergies
Allergy/AdvReac Type Severity Reaction Status Date / Time
nickel Allergy Unknown Rash Verified 05/25/24 08:29
Home Medications
�Medication �Instructions �Recorded �Confirmed �Last Taken �Type
Patient Own Insulin Pump 0 unit SC .VIA INSULIN LISPRO 04/11/24 06/11/24 04/11/24 History
Diabetes
Review of Systems
-
History Source: Patient and Other (friend )
Constitutional: Other (pain all over the body )
EENT: No Symptoms
Respiratory: No Symptoms
Cardiac: No Symptoms
Abdomen/GI: Abdominal Pain and Nausea
Musculoskeletal: No Symptoms
Skin: No Symptoms
Neuro: Other (reports blurry vision as a chronic problem )
Endocrine: No Symptoms
Vitals / Labs / Diagnostic Testing
Vital Signs
Temp Pulse Resp BP Pulse Ox
97.6 F 126 22 80/56 100
06/11/24 12:27 06/11/24 14:15 06/11/24 14:15 06/11/24 14:15 06/11/24 13:45
Lab Data
06/11/24 22:00
Microbiology
06/11/24 12:51 Nasal Swab Influenza Types A & B (TERI) - Final
Negative for Influenza A & B, NAAT
Negative results must be combined with clinical observations
and patient history.
Nucleic Acid Amplification test (NAAT)performed on the
[employer] platform.
Diagnostic Testing:
Physical Exam
-
HEENT: Normocephalic and Anicteric
Cardiovascular: S1/S2 and Irregular Rhythm
Respiratory: Clear
GI: Soft, Non Distended and Other (Sensitive to palpation/ generalized mild abdominal pain )
Neurology: Awake, Alert, Oriented, AO x 3 and No Motor Deficits
Skin: Dry
General: Comfortable and Pain
Assessment
-
Assessment
Impression: The patient is a 28-year-old female who presented to the ER developing confusion, nausea, abdominal pain, chills, diarrhea, chest pain and paresthesia. She has past medical history of IDDM and has been on insulin pump which was changed
yesterday per patient's report. The patient was not eating well since last week and she took some alcohol which is not a regular habit for her. Her Lab results showed highly elevated glucose level for 1235 and she has a prior hospitalization with
DKA one year ago.
Diabetic ketoacidosis
Initial blood sugar- 1235
Anion gap-45
VBG 06/11/24 ph 7.31- HCO3 8 PCO2 24
Leukocytosis at 36.1
Aywwpc-wxmnkhfqpw-shiupspusb 10.0 MCV 80.4
Decompensated Anion gap metabolic acidosis
KB-suspect prerenal due dehydration
Diarrhea
SIRS
Plan
#DKA along decompensated Anion gap metabolic acidosis
-T1DM since the age of 18- has a insulin pump which was removed at the service
-Remains critically ill on insulin drip
-Continue to follow blood sugar closely Q1H
-Monitor anion gap-closing/BMP Q4H
-Insulin drip continues per protocol
-Continue IV Fluids
-K replacement 40 meq for K level 3.5-5.5
-Check HGB A1c if not done in the last 3 months
-Diabetic nurse practitioner consultation is planned
-Will need to follow-up closely as outpatient with PCP and DM specialist
#KB
-likely prerenal due dehydration
-Continue iv fluids
-Follow up renal function
#SIRS
-Blood cultures were ordered by ER
-Received one dose of vancomycin and Zosyn at ER admission for Empiric treatment
-Started on Cefepime 2 gr Q12 H
-Started flagyl
#Pain
-Tylenol as needed
-Morphine if needed
-Avoid NSAI with KB
-Serial abdominal exam
-Abd US was ordered
#Others
-Supplemental oxygen if needed
-Incentive spirometry
-Aspiration precautions
-Urine analysis negative
-DVT prophylaxis-on heparin
-Early mobilization
Marijuana smoking/nicotine vaping- cessation counseling can be considered
.
[2024-06-11 16:41] LABS: Glucose - Point of Care > 600 mg/dl (70-99)
--- NOTE | 2024-06-11 16:44 | HPS.HSE ---
Addendum entered and electronically signed by Philipp Lucas MD 06/11/24 21:28:
Attending Addendum-
I performed a history and physical exam of the patient and discussed his management with the resident. I reviewed the resident's note and agree with the documented findings and plan of care CC/HPI- Came to ED due to malfunctioning Omnipod. Patient
says sxs started @ 2AM. Had 5 shots of titos last PM mourning loss of sister in ICU 2 days ago due to drug OD. Complains of N/V, abd pain, extreme thirst, poor concentration, diarrhea. Patient seen in ICU feels greatly improved after insulin and
IVF. Full 12 point ROS reviewed and negative except as documented Exam- vitals reviewed in EMR GEN-NAD heart tachycardic lungs clear abd soft mild generalized tenderness. Ext No edema Neuro AAO x 3
Plan:
#DKA
# Acute metabolic acidosis
# Type I diabetic since age 18
-Admit to ICU
-BS 1235! anion gap corrected 28, ph 7.13, Co2<5, pos beta hydroxy/ketonuria
-no indication for bicarb
-IV insulin 7 units given in ER, START INSULIN GTT with protocol STAT (k > 3.5)
-Lactated Ringer's 1000 bolus x 2 given
-after 4L then IV NSS 150-200 cc/hr
-Consult wellness spa manager
-hold insulin pump
-repeat labs per protocol monitor very clsoely
-c/s DM educator
#SIRS
#Hx of reactive leukocytosis
-WBC 36
-UA negative, send blood cx x 2
-Check CXR-reviewed no infiltrate
-COVID swab-neg
-IV Vanco, Iv Zosyn x 1 given on ED
-hold off on further abx- no source of infection appears to be secondary to DKA
#Acute hypotension
- from dehydration
- hold lisinopril
- improved with IVF
- Continue IVF bolus and IVF @ 150-200 cc/h
#KB due to hypovolemia
-Creat 2.0 baseline 0.8
-Continue aggressive IVF bolus and 150-200ml/hr
-HOLD LISINOPRIL 5mg daily
follow bmp
# Hyperkalemia
- with EKG changes-reviewed
- calcium gluconate and bicarb given in ED
- should come down nicely with insulin
- repeat BMP per protocol
# Pseudohyponatremia
-NA 127 corrected 145
-treat DKA
-repeat BMP as per protocol
#Hx cyclical vomiting with history of marijuana use
#Marijuana use smokes marijuana at [employer]
- cessation advised
#Iron deficiency anemia
-monitor CBC
Dvt proph
- sq heparin
full code
CC Note
Due to a high probability of clinically significant, life-threatening deterioration, the patient required a high level of preparedness to intervene emergently. I personally spent this critical care time directly and personally managing the patient.
This critical care time included obtaining a history; examining the patient; ordering and review of studies and STAT labs; arranging urgent treatment with development of a management plan; evaluation of patient's response to treatment; reassessment;
and, discussions with other providers.
This critical care time was performed to assess and manage the high probability of imminent, life-threatening deterioration that could result in multi-organ failure. It was exclusive of separately billable procedures and treating other patients and
teaching time. Total time documented is also exclusive of any additional time listed that was spent in advance care planning discussion
Total critical care time: Approximately 58 minutes
Original Note:
Family Physician
-
Family Physician: Laci Posadas MD
Chief Complaint
-
DKA
History of Present Illness
Patient is a 28-year-old female with past medical Type 1 diabetes, diagnosed at age 17, and hypertension who presents to [facility] after her insulin pump stopped working. She states she started to feel 'off' around midnight and 2 AM woke
her up to tell her she was not feeling well. She attempted to take a hot shower to calm down however decided to come to the hospital instead. Her states that this morning she was confused and unable to walk unassisted from the car to the
hospital. In the ED patient was given 2 L of fluid, calcium and bicarb. She was periodically in V. tach until stabilized. An insulin drip was started of 7 units. She was given 1 dose of Vanco and Zosyn in the ED.
She currently takes lisinopril 5 mg if her blood pressure is elevated.
Medical History
Past Medical History
Past Medical History: Reports HTN
Additional Past Medical History:
Type 1 diabetes
Past Surgical History: Reports None
Social History
Tobacco: Non-smoker
Alcohol: Occasional
Drug: Marijuana
Personal:
Living: With Family
Employment: Employed
Family History
Family History: Diabetes, Hypertension and Other (Hypercholesterolemia)
Allergies / Home Medications
Allergies reflects when Allergies were last updated in [facility].
Home Medications with original date entered in [facility]
Allergy/Medication List:
Allergies
Allergy/AdvReac Type Severity Reaction Status Date / Time
nickel Allergy Unknown Rash Verified 05/25/24 08:29
Home Medications
Patient Own Insulin Pump 0 unit SC .VIA INSULIN LISPRO Diabetes 04/11/24
Per patient�insulin 5 mg
Review of Systems
-
History Source: Patient
A 12 point ROS was completed and negative except as noted: Yes
Constitutional: Reports Chills
EENT: Reports No Symptoms
Respiratory: Reports No Symptoms
Cardiac: Reports Palpitations
Abdomen/GI: Reports Vomiting and Diarrhea
: Reports No Symptoms
Musculoskeletal: Reports No Symptoms
Skin: Reports No Symptoms
Neurological: Reports Dizzy and Weakness
Endocrine: Reports No Symptoms
Hematologic/Lymphatic: Reports No Symptoms
Psych: Reports Depression (Recent loss of sister)
Physical Exam
Vital Signs
Vital Signs
Temp Pulse Resp BP Pulse Ox
97.6 F 126 22 80/56 100
06/11/24 12:27 06/11/24 14:15 06/11/24 14:15 06/11/24 14:15 06/11/24 13:45
Physical Exam
General: Well Developed, Well Nourished, Appears in Distress and Chills
HEENT: NormoCephalic and Anicteric; No Moist mucous membranes
Respiratory: Clear
Cardiac: S1/S2, Regular Rhythm and Tachycardia
GI: Soft and Non Distended
Musculoskeletal: No Clubbing, No Cyanosis and No Edema
Skin: Warm and Dry
Neuro: AO x 3
Laboratory Results
-
06/11/24 22:00
Laboratory Results
Total Bilirubin 1.0 mg/dl (0.2-1.3) 06/11/24 12:51
AST 38 U/L (14-36) H 06/11/24 12:51
ALT 34 U/L (0-35) 06/11/24 12:51
Alkaline Phosphatase 122 U/L (38-126) 06/11/24 12:51
Troponin I 0.020 ng/ml 06/11/24 13:09
Lipase 96 U/L (23-300) 06/11/24 12:51
Data Reviewed
-
Lab Data: Labs Reviewed by me and Discussed with Physician
Old Records: Reviewed
Impression/Plan
-
IMPRESSION: Patient is a 25-year-old female with past medical history of type 1 diabetes presenting to [facility] in [facility] with blood sugar in 1200s.
PLAN:
#DKA secondary to pump failure
SIRS criteria met
Patient transferred to ICU
Every glucose checks
Continue rehydration with normal saline at 1000 mL/h
Continue monitoring potassium, 6 at admission
Bicarb given in ED, continue to monitor. Less than 6 in ED
Continue insulin drip
Diabetic consult placed, appreciate input
#Hypertension
Hold lisinopril
#Depression
Recent loss of sister, expressed feelings of sadness
Would like to be connected to resources and start antidepressant once stabilized and able to tolerate oral medication
DVT prophylaxis-SCDs
Full code
[2024-06-11 17:21] LABS: Blood Urea Nitrogen 34 mg/dl (7-17); Calcium 9.5 mg/dl (8.4-10.2); Carbon Dioxide 16 mmol/L (22-30); Chloride 95 mmol/L (98-107); Estimated Creatinine Clearance 44 ml/min; Magnesium 2.3 mg/dl (1.6-2.3); Phosphorus 2.4 mg/dl (2.5-4.5); Potassium 4.2 mmol/L (3.5-5.1); Sodium 133 mmol/L (135-145); eGFR 39.11
[2024-06-11 17:28] LABS: Glucose 703 mg/dl (70-99)
[2024-06-11 17:48] LABS: Glucose - Point of Care > 600 mg/dl (70-99)
[2024-06-11] MEDS: 0.45% NACL with KCL 20 MEQ 1000 IV (18:06)
[2024-06-11 18:13] LABS: Glucose 713 mg/dl (70-99)
[2024-06-11] MEDS: FLAGYL 500 MG 100 IV (18:17)
[2024-06-11] MEDS: THIAMINE INJECTION 100 MG IV (18:17)
[2024-06-11] MEDS: TUMS EX (EXTRA STRENGTH) CHEWABLE TABLET 300 MG PO (18:17)
[2024-06-11 18:37] LABS: Glucose - Point of Care > 600 mg/dl (70-99)
[2024-06-11 19:17] LABS: Glucose 664 mg/dl (70-99)
[2024-06-11 19:43] LABS: Glucose - Point of Care 589 mg/dl (70-99)
[2024-06-11] MEDS: MAXIPIME 2000 MG IV (19:53)
[2024-06-11] MEDS: STERILE WATER FOR INJECTION 10 ML IV (19:53)
--- NOTE | 2024-06-11 20:00 | PTCARENOTE ---
Patient received in bed, drowsy, oriented x3. Sinus Tachycardia on monitor, blood pressure as documented. Palpable pulses throughout, no edema npoted. Lungs clear on room air. Abdomen soft with positive bowel sounds. Voiding clear yellow urine.
#20 g in LFA flushed and patent. Right upper midline with IVF and insulin gtt. Call garcia within reach
[2024-06-11 20:04] LABS: Glucose 570 mg/dl (70-99)
[2024-06-11 20:58] LABS: Glucose - Point of Care 480 mg/dl (70-99)
[2024-06-11 21:02] LABS: Venous Blood Gas B.E. 0.2 mmol/L (-4 to +4); Venous Blood Gas HCO3 24.6 mmol/L (22-27); Venous Blood Gas O2 Sat % 99.9 %; Venous Blood Gas pCO2 38 mmHg (35-48); Venous Blood Gas pH 7.42 (7.32-7.43); Venous Blood Gas pO2 149 mmHg (30-50)
[2024-06-11 21:26] LABS: Blood Urea Nitrogen 34 mg/dl (7-17); Calcium 9.5 mg/dl (8.4-10.2); Carbon Dioxide 24 mmol/L (22-30); Chloride 102 mmol/L (98-107); Estimated Creatinine Clearance 49 ml/min; Glucose 466 mg/dl (70-99); Magnesium 2.3 mg/dl (1.6-2.3); Phosphorus 1.6 mg/dl (2.5-4.5); Potassium 4.4 mmol/L (3.5-5.1); Sodium 135 mmol/L (135-145); eGFR 48.68
[2024-06-11 21:44] LABS: Glucose - Point of Care 441 mg/dl (70-99)
[2024-06-11 22:00] LABS: Glucose 417 mg/dl (70-99)
[2024-06-11 22:02] LABS: Hematocrit 25.8 % (37.0-47.0); Hemoglobin 8.6 g/dL (12.0-16.0); Mean Corp Hgb Conc. 33.3 g/dL (33.0-37.0); Mean Corpuscular Hgb 25.1 pg (27.0-31.0); Mean Corpuscular Volume 75.2 fL (81.0-99.0); Red Blood Cell Count 3.43 10^6/uL (4.20-5.40); Red Cell Dist. Width 17.2 % (11.5-14.5); White Blood Cell Count 25.7 10^3/uL (4.8-10.8)
[2024-06-11 22:19] LABS: Mean Platelet Volume 10 fL (7.4-10.4); Platelet Count 141 10^3/uL (130-400)
[2024-06-11] MEDS: TYLENOL 650 MG PO (22:30)
[2024-06-11] MEDS: TUMS CHEWABLE TABLET 400 MG PO (22:42)
[2024-06-11 22:46] LABS: Glucose - Point of Care 382 mg/dl (70-99)
--- NOTE | 2024-06-11 23:18 | PTCARENOTE ---
Patient requesting tums for indigestion, medicated with one time dose of dilaudid as ordered. Updated on plan of care. Resting with eyes closed, no other changes in assessment
[2024-06-11 23:45] LABS: Glucose - Point of Care 274 mg/dl (70-99)
[2024-06-12] VITALS (20 sets, daily range): BP systolic 88–154; BP diastolic 45–101; BMI 25.1
[2024-06-12 00:45] LABS: Glucose - Point of Care 220 mg/dl (70-99)
[2024-06-12 01:14] LABS: Blood Urea Nitrogen 33 mg/dl (7-17); Calcium 9.7 mg/dl (8.4-10.2); Carbon Dioxide 27 mmol/L (22-30); Chloride 106 mmol/L (98-107); Estimated Creatinine Clearance 52 ml/min; Glucose 204 mg/dl (70-99); Magnesium 2.1 mg/dl (1.6-2.3); Phosphorus 2.7 mg/dl (2.5-4.5); Potassium 4.3 mmol/L (3.5-5.1); Sodium 140 mmol/L (135-145); eGFR 52.88
[2024-06-12 01:45] LABS: Glucose - Point of Care 166 mg/dl (70-99)
[2024-06-12] MEDS: D5/0.45%NSS with KCL 20 MEQ 1000 IV ×3 (01:52→17:14)
[2024-06-12] MEDS: FLAGYL 500 MG 100 IV ×3 (01:53→17:54)
[2024-06-12] MEDS: ZOFRAN 4 MG IV ×2 (02:39→08:54)
[2024-06-12 02:42] LABS: Glucose - Point of Care 141 mg/dl (70-99)
[2024-06-12 03:45] LABS: Glucose - Point of Care 143 mg/dl (70-99)
[2024-06-12 04:42] LABS: Glucose - Point of Care 245 mg/dl (70-99)
[2024-06-12 04:44] LABS: Venous Blood Gas B.E. 0 mmol/L (-4 to +4); Venous Blood Gas HCO3 26.7 mmol/L (22-27); Venous Blood Gas pCO2 53 mmHg (35-48); Venous Blood Gas pH 7.31 (7.32-7.43); Venous Blood Gas pO2 108 mmHg (30-50)
[2024-06-12 05:26] LABS: ALT (SGPT) 22 U/L (0-35); AST (SGOT) 39 U/L (14-36); Albumin 3.4 g/dl (3.5-5.0); Alkaline Phosphatase 96 U/L (38-126); Blood Urea Nitrogen 30 mg/dl (7-17); Calcium 10.1 mg/dl (8.4-10.2); Carbon Dioxide 26 mmol/L (22-30); Chloride 105 mmol/L (98-107); Estimated Creatinine Clearance 56 ml/min; Glucose 163 mg/dl (70-99); Phosphorus 4.1 mg/dl (2.5-4.5); Potassium 5.4 mmol/L (3.5-5.1); Sodium 139 mmol/L (135-145); Total Bilirubin 0.6 mg/dl (0.2-1.3); Total Protein 5.8 g/dl (6.3-8.2)
[2024-06-12 05:49] LABS: Glucose - Point of Care 157 mg/dl (70-99)
--- NOTE | 2024-06-12 06:01 | PTCARENOTE ---
Patient has been NPO since midnight, sitting in the chair
[2024-06-12 06:44] LABS: Glucose - Point of Care 156 mg/dl (70-99)
[2024-06-12] MEDS: THIAMINE INJECTION 100 MG IV (07:49)
[2024-06-12] MEDS: MAXIPIME 2000 MG IV ×2 (07:50→19:33)
[2024-06-12] MEDS: STERILE WATER FOR INJECTION 10 ML IV ×2 (07:50→19:32)
[2024-06-12 07:56] LABS: Glucose - Point of Care 168 mg/dl (70-99)
--- NOTE | 2024-06-12 08:18 | W.PN.INTV ---
Today's Communication / Plan
Recommendations
-Transfer to Telemetry
-Switch insulin drip to insulin pump
-Tigan fro nausea/ Zofran was dc
-Start regular diabetic diet
-Heparin switched to Lovenox
Assessment
-
Assessment
Impression: A 28 year-old female with a past medical history of hypertension, hyperlipidemia and insulin-dependent DM who presented to the ER due to developing confusion, chills,chest pain, racing heart, vomiting and abdominal pain. The patient
has a history of hospitalization about 1 year ago for DKA and has an insulin pump which needs be changed in every 3 days (100 units). Per patient report, her insulin pump was changed on 06/10 but she was not checking her blood sugar levels
closely. The patient was admitted to ICU for the management of DKA.
Plan
Type 1 DM complicated by severe DKA
Nausea and abdominal pain
Leukocytosis
Chronic anemia
Metabolic acidosis with increased anion gap
KB
Tachyarrhythmia in the ER with suspected wide-complex tachycardia/NSVT --> SVT (now resolved and in sinus tachycardia with occasional PVCs)
Transaminitis
#DKA complicated by severe DKA
-The patient was started to DKA protocol
-Patient has improvement with better control blood sugars Recent glucose level:168
-Insulin current dose at 2 units/h
-Continue to monitor blood sugar
-Continue to follow-up BMP
-Insulin drip is planning to change to her insulin pump
-Diabetic nurse practitioner was consulted
-Plan to transfer to Telemetry
#Nausea and abdominal pain
-Ongoing nausea/Zofran is not helpful
-Started on Tigan 200 mg PRN
-Abd US: No acute abdominal pathology was found ( No evidence of cholelithiasis, No renal collecting system dilatation)
#Leukocytosis
-Improving
-UA negative
-Check CXR-neg
-COVID neg
-Blood culture pending
-IV Vanco, Iv Zosyn x 1 given on ED
-Continue Cefepime and Flagyl
#Metabolic acidosis with increased anion gap
-GAP is normal at 8
-VBG improved with pH 7.31 PCO2 53, HCO3 26.7
#KB likely due dehydration
-Cr trending down from 2.o to 1.1 (baseline 0.8)
-Continue IV fluids until she tolerate oral taking
-follow bmp
-Heparin was switched to Lovenox 40 after renal improvement
#Tachyarrhythmia in the ER with suspected wide-complex tachycardia/NSVT --> SVT
-calcium gluconate and bicarb given in ED admisssion due
- Resolved and in sinus tachycardia with occasional PVCs
-Planning to transfer to telemetry
# Hyperkalemia
-Improved at 4.1
- repeat BMP per protocol
#Pseudohyponatremia
-Improved with DKA management at 141
#Transaminitis
-AST 39
-Abd US: No pathologic findings
-Follow up
#Hx of Marijuana and nicotine use
- cessation advised
#Iron deficiency anemia
-monitor CBC
#Dvt proph
- Switched on Lovenox
full code
Subjective Dataa
Subjective Data
Date of Service:
Date of Service: June 12, 2024
Subjective:
The patient was alert, awake and oriented this morning. She was shaking and reports that she feels cold. She reported some abdominal pain. She was some sensitivity to palpation on the right upper quadrant abdominal area.
Review of Systems
General: Chills and Pain
HEENT: Other (no complaining)
Cardiopulmonary: Other (none )
GI: Abdominal Pain
Neuro: Other (No complaining )
Objective Data
Data Reviewed
Vital Signs / I&O / Oxygen:
Vital Signs
Temp Pulse Resp BP Pulse Ox
98.7 F 100 12 110/71 96
06/12/24 03:39 06/12/24 05:00 06/12/24 05:00 06/12/24 05:00 06/12/24 02:00
Intake and Output
06/11/24 06/12/24 06/13/24
06:59 06:59 06:59
Intake Total 2692 / 2692
Output Total 1000 / 1000
Balance 1692 / 1692
SaO2 96
Physical Exam
General: Pain (Generalized pain)
HEENT: Normocephalic, Anicteric and Moist Mucous Membranes
Cardiovascular: S1-S2 and Regular Rhythm
Respiratory: Clear
GI: Tender (Abdominal pain home the upper right quadrant-sensitive to palpation-no guarding-no rebound)
Neurology: Awake, Alert, Oriented, AO x 3 and No Motor Deficits (Grossly normal motor exam)
Skin: Warm and Dry
Labs/Micro/Reports
Lab Data
06/11/24 21:39
Laboratory Results
06/11/24
19:25
pH Cancelled
pCO2 Cancelled
pO2 Cancelled
HCO3 Cancelled
O2 Delivery Level Cancelled
Microbiology
06/11/24 12:51 Nasal Swab Influenza Types A & B (TERI) - Final
Negative for Influenza A & B, NAAT
Negative results must be combined with clinical observations
and patient history.
Nucleic Acid Amplification test (NAAT)performed on the
[employer] platform.
--- NOTE | 2024-06-12 08:19 | W.PN.INTV ---
Addendum entered and electronically signed by Graham Young MD 06/12/24 19:50:
Total time spent today was 56 minutes for this encounter. Time includes reviewing laboratory test/imaging results, reviewing pertinent medical records, obtaining and reviewing medical history, performing an appropriate exam, ordering medications,
tests and procedures. Time also includes documentation of this encounter, coordinating patient care and communicating with other healthcare professionals. Total time does not include separately billed tests performed on this date of service.
Original Note:
Today's Communication / Plan
Recommendations
Transition off insulin drip with NPH, then turn off insulin drip after 2 hours
She will need a new insulin pump which the diabetic INSURANCE EXAMINER is working on
Pain control
Antiemetics prn
Pepcid now, and start PPI q12hr
Continue empiric ABx and follow up cultures
CT chest/A/P shows no acute pathology and no focus of infection
Consider GI consult given she reports 'black' stool and has heartburn - she may have some stomac/small bowel ulceration developing satinder with her recent EtOH use and of her sister
Patient is stable for downgrade out of ICU to telemetry. No additional recommendations at this time. Rubber Cutter And Shape Carver/Pulmonary service will now sign off. Outpatient office follow up will be arranged to discuss her RUL lung nodule. Please reconsult
if there are any additional questions/concerns, or if patient's respiratory status deteriorates.
Assessment
-
Impression:
#Uncontrolled DM type II (HbA1C: 9.1 on 06/11/2024) complicated by severe DKA - DKA now resolved
#Nausea/vomiting likely due to above however given her severe leukocytosis unable to rule out intra-abdominal process (i.e. colitis)
#Leukocytosis
#Chronic anemia
#Metabolic acidosis with increased anion gap with respiratory under compensation (respiratory acidosis) - metabolic acidosis resolved; still with mild respiratory acidosis
#KB - stable
#Tachyarrhythmia in the ER with suspected wide-complex tachycardia/NSVT --> SVT (now resolved and in NSR)
#Transaminitis (elevated AST) due to recent alcohol use
#4 mm noncalcified right upper lobe nodule seen on CT chest today (06/12/2024)
Plan:
- Patient has a history of DKA with uncontrolled DM type II (HbA1c: 9.3 on 04/12/2024), and her sister recently . She has been coping by increasing her alcohol use and on 06/10/2024 she went out with her partner and was drinking alcohol
and after she returned she deteriorated: She became nauseous and was vomiting, which short of breath, was shaking with whole body aches and delusional --> found to be in severe DKA here in ER
- Unclear if her insulin pump has been fully functional --> she will need a new one
- Continue with insulin drip with q1hr fingersticks, q4hr BMP, mag and phosphorus; acidosis improved on blood gas this AM, but she did have mild respiratory acidosis --> continue to trend this
- Pt will be weaned off insulin drip with NPH, and then will be initiated on a new insulin pump per diabetic INSURANCE EXAMINER
- Avoid hypoglycemia and hypokalemia
- While she is on insulin gtt, continue supplemental IV dextrose while BG<250mg/dL
- She has significant leukocytosis with abd discomfort and throat pain ---> would continue with broad spectrum Abx with cefepime/flagyl
- Abdominal sound checked on 06/12/2024 showing no evidence of cholelithiasis, GB wall thickening or biliary tract dilatation, and no renal collecting system dilatation bilaterally.
- CT chest/abdomen/pelvis obtained today showing a 4 mm right upper lobe nodule, with CT abdomen/pelvis imaging markedly limited due to motion artifact, although there was no gross focal intrinsic abnormality of the liver, spleen, pancreas, kidneys
or adrenal glands. Also no intestinal obstruction, free air, free fluid or gross right lower quadrant inflammatory changes
- CT neck obtained today due to complaints of throat pain with shortness of breath, and the upper airway was in midline, nondisplaced without any intrinsic compression
- A 4 mm right apical nodule seen on her imaging today. She is a non-smoker with no family history of lung cancer. She does, however, smoke marijuana and depending on the modality of how she smokes (cigar papers, joint papers), she may be at
slightly increased risk. I will arrange for outpatient office follow-up to discuss this nodule and if imaging is warranted would recommend repeat CT chest in 6 to 12 months.
- Treat nausea with anti-emetics using tigan prn (trend QTc)
- Pain control
- Trend LFTs
- She endorses heartburn, so I will give her a dose of Pepcid and start her on PPI 40mg IV q12hr; she reports that she has been having black stool at home. Her Hb was 8.6 last night, which is down from 10, although she was at 8.6 in March 2024.
BUN is starting to downtrend which is encouraging as well. Considering her abdominal pain with reported black stool, would recommend continuing PPI for now (q12hr dosing), and continue to monitor for any evidence of GI bleed, in which case would
consult GI
- Trend sCr and renally dose all meds/Abx
- Trend UOP and sNa
- Patient has occasional alcohol use, no reported daily alcohol use per the partner. Monitor for alcohol withdrawal
- Continue thiamine in the meantime
- Monitor HR (now in NSR)
- Continue telemetry monitoring
- Replete electrolytes with K>4, Mg>2
- Maintain SpO2 >90-94%
- Maintain MAP>65
- Trend H/H and transfuse if needed to keep Hb>7g/dL; keep plt>20k, unless there is concern for bleeding then keep plt>50k
- prn nebulized bronchodilators - not currently bronchospastic
- Incentive spirometer encouraged 10x per hour for at least 4 hrs a day
- DVT ppx: LMWH
Patient is stable for downgrade out of ICU to telemetry. No additional recommendations at this time. Rub[employer] Cutter [employer] Shape Carver/Pulmonary service will now sign off. Thank you for allowing us to be involved in the care of this patient. Please reconsult if there
are any additional questions/concerns, or if patient's respiratory status deteriorates.
Data:
CXR 06/11/2024: No acute cardiopulmonary process.
CT chest/abdomen/pelvis without contrast 06/12/2024:
4 mm noncalcified right upper lobe pulmonary nodule.
Markedly limited evaluation due to numerous factors, as detailed above, without gross focal acute abnormality seen including no findings to suggest pneumonia. Please note, on the basis of this study an acute inflammatory/infectious process of the
abdomen and pelvis although not identified, cannot be excluded.
CT Neck 06/12/2024:
Evaluation markedly limited without intravenous contrast, without gross findings to suggest abnormal focal fluid collection such as an abscess.
Unremarkable upper airway.
4 mm noncalcified right apical pulmonary nodule. Please see separate concurrent CT Chest report.
Subjective Dataa
Subjective Data
Date of Service:
Date of Service: June 12, 2024
Chief Complaint: Rubber Cutter And Shape Carver Follow Up
Subjective:
Patient seen and evaluated today at bedside. Anion gap closed. Being weaned off insulin gtt. She has RUQ US. HR 104, SpO2 99% on room air. BP: 124/77.
Review of Systems
General: Other
Objective Data
Data Reviewed
Vital Signs / I&O / Oxygen:
Vital Signs
Temp Pulse Resp BP Pulse Ox
97.7 F 100 12 110/71 96
06/12/24 07:30 06/12/24 05:00 06/12/24 05:00 06/12/24 05:00 06/12/24 02:00
Intake and Output
06/11/24 06/12/24 06/13/24
06:59 06:59 06:59
Intake Total 2692 / 2844 304 / 304
Output Total 1000 / 1000 300 / 300
Balance 1692 / 1844 4 / 4
SaO2 96
Labs/Micro/Reports
Lab Data
06/11/24 21:39
Laboratory Results
06/11/24
19:25
pH Cancelled
pCO2 Cancelled
pO2 Cancelled
HCO3 Cancelled
O2 Delivery Level Cancelled
Microbiology
06/11/24 12:51 Nasal Swab Influenza Types A & B (TERI) - Final
Negative for Influenza A & B, NAAT
Negative results must be combined with clinical observations
and patient history.
Nucleic Acid Amplification test (NAAT)performed on the
[employer] platform.
[2024-06-12 08:53] LABS: Glucose - Point of Care 151 mg/dl (70-99)
[2024-06-12 09:04] LABS: Glycohemoglobin (HgbA1c) 9.1 % (4.0-5.6)
[2024-06-12] MEDS: OFIRMEV 100 IV (09:05)
--- NOTE | 2024-06-12 09:38 | CM ---
CM following re: discharge planning.
Reviewed pt's chart, met with pt.
Pt is a 28 year old female, admitted with primary dx of DKA.
Pt reports she lives with spouse in an apartment, no steps. 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 Pt reports she has supportive family.
PCP: Julianna Schneider
Pharmacy: [facility].
D/c plan: home with anticipated no needs. Family to transport at discharge.
CM will follow with discharge plan updates as hospitalization progresses
[2024-06-12 09:46] LABS: Glucose - Point of Care 194 mg/dl (70-99)
--- NOTE | 2024-06-12 09:54 | W.PN.HOSP.TC ---
Addendum entered and electronically signed by Philipp Lucas MD 06/12/24 23:07:
Attending Addendum-I saw and evaluated the patient. I reviewed the resident�s note and agree with findings and plan as documented in the resident�s note. Patient seen in ICU feels 'terrible' Vomitted this am. compleins of back pain and abd pain. 'i
want Dilaudid no one is giving me any' . Full 12 point ROS reviewed and negative except as documented Exam- vitals reviewed in EMR GEN-NAD heart RRR no M/R/G lungs clear abd soft mild generalized tenderness. Ext No edema Neuro AAO x 3
Plan:
# DKA
# Acute metabolic acidosis
# Type I diabetic since age 18
- on admission BS 1235! anion gap corrected - 28, ph 7.13, Co2<5, pos beta hydroxy/ketonuria
- gap closed x 2 AG corrected 9.5
- cont insulin gtt transition to insulin pump today
- restart insulin pump bolus with meals if able to eat
- transfer to tele
- appreciate input from DM educator
#SIRS
#Hx of reactive leukocytosis
-WBC 36->25
-UA negative, blood cx x 2 - NGTD
-Check CXR-reviewed no infiltrate
-COVID swab-neg
-IV Vanco, Iv Zosyn x 1 given on ED
-cefepime and metro per ID
-check ct neck and abd/pelvis per ICU r/o infection
#Acute hypotension
- resolved
- from dehydration
- restart lisinopril on DC
- improved with IVF
#KB due to hypovolemia
-Creat 1.3 baseline 0.8
-Continue IVF
-HOLD LISINOPRIL 5mg daily
follow bmp
# Hyperkalemia
- with EKG changes-reviewed
- calcium gluconate and bicarb given in ED
- should come down nicely with insulin
- repeat BMP in am
# Pseudohyponatremia
- resolved
- treat DKA
- repeat BMP in am
#Hx cyclical vomiting with history of marijuana use
#Marijuana use smokes marijuana at [employer]
- cessation advised
#Iron deficiency anemia
- start IRON
- repeat CBC in am
Dvt proph
- sq heparin
full code
Dispo DC home in 1-2 days when able to tolerate PO
Time spent coordinating care, review of plan of care with resident, personally reviewed records in EMR, med rec, consults, notes, labs, radiology, d/w nursing � 59 mins
Original Note:
Today's Communication/Plan
-
Continue IV Zofran for support
Single dose of IV 1 mg Tylenol given for pain
Abdominal ultrasound today
Start regular diabetic diet
Assessment / Plan
Assessment / Plan
#DKA with acute metabolic acidosis
Diagnosed at age 18
Currently being monitored in ICU
Blood sugar originally 1200+, last 168.
Currently on D5 one half normal saline at 150 mL/h
Anion gap 8
Log Rafter following, appreciate input
Insulin currently at 2 units/h
school vocational educator consulted, appreciate input
Repeat labs per protocol
Continue Zofran as needed for nausea and vomiting
Single dose IV 1 mg Tylenol given for pain, continue with Tylenol every 6 as needed once vomiting subsided
#SIRS
WBC 36, now 25.7. Continue to trend
UA negative, blood culture pending
Chest x-ray negative
COVID-negative
Single dose of IV vancomycin and Zosyn given in ED, hold other antibiotics
#Acute hypotension
Secondary to dehydration
Hold lisinopril
Improved with IV fluids, continued maintenance
#KB secondary to hypovolemia
Creatinine 2.0 with baseline 0.8
Continue IV fluid
Hold lisinopril
Follow BNP
#Hyperkalemia
EKG changes noted
Calcium gluconate and bicarb given in ED, V. tach stabilized
Continue insulin and repeat BMP per protocol
#Pseudohyponatremia
145 yesterday, corrected to normal. Today 141
Continue to monitor
#Marijuana use
Recommended cessation
History of cyclical vomiting secondary to marijuana use
#Iron deficiency anemia
Monitor CBC
DVT prophylaxis�subcu heparin
Full code
Anticipated Discharge: > 48 hours
Subjective/Interval History
-
Date of Service: June 12, 2024
Overnight patient reports no acute events. She does report some pain in her back and dryness in her mouth. This morning around 9 AM she began to have significant nausea and vomiting after trying oral liquids. She transition back to ice chips and
was given IV 1 mg of Tylenol and Zofran. She remains afebrile. No complaints of chest pain, shortness of breath, diarrhea or headaches.
Objective Data
-
Labs:
Laboratory Results
06/11/24 06/11/24 06/12/24
19:25 21:39 00:37
WBC 25.7 H
Hgb 8.6 L
Hct 25.8 L
Plt Count 141 D
HCO3 Cancelled
Sodium 140
Potassium 4.3
Chloride 106
Carbon Dioxide 27
BUN 33 H
Creatinine 1.4 H
Glucose 417 H 204 H
Calcium 9.7
Total Bilirubin
AST
ALT
Alkaline Phosphatase
06/12/24 06/12/24
04:30 09:12
WBC
Hgb
Hct
Plt Count
HCO3
Sodium 139 Pending
Potassium 5.4 H D Pending
Chloride 105 Pending
Carbon Dioxide 26 Pending
BUN 30 H Pending
Creatinine 1.3 H Pending
Glucose 163 H Pending
Calcium 10.1 Pending
Total Bilirubin 0.6
AST 39 H
ALT 22
Alkaline Phosphatase 96
Vital Signs:
Vital Signs
Temp Pulse Resp BP Pulse Ox
97.7 F 100 12 110/71 96
06/12/24 07:30 06/12/24 05:00 06/12/24 05:00 06/12/24 05:00 06/12/24 02:00
I&O
06/11/24 06/12/24 06/13/24
06:59 06:59 06:59
Intake Total 2692 / 2844 556 / 556
Output Total 1000 / 1000 800 / 800
Balance 1692 / 1844 -244 / -244
Review of Systems
-
History Source: Patient
Constitutional: Reports Chills
EENT: Reports No Symptoms Reported
Respiratory: Reports No Symptoms
Cardiac: Reports No Symptoms
Abdomen/GI: Reports Nausea and Vomiting
Genitourinary: Reports No Symptoms
Musculoskeletal: Reports Muscle Pain
Neuro: Reports No Symptoms
Physical Exam
-
General: Well Developed, Well Nourished and Conversant
HEENT: Normocephalic and Atraumatic; Negative Moist Mucous Membranes
Respiratory: Clear to Auscultation
Cardiac: Regular Rhythm and S1/S2
GI: Soft, Nondistended and Tender
Musculoskeletal: No Clubbing, No Cyanosis and No Edema
Skin: Warm and Dry
Neuro: AO x 3
Psych: Calm
Data Reviewed
-
Labs: Labs Reviewed by me and Discussed with Physician
Old Records: Reviewed
[2024-06-12 10:00] LABS: Blood Urea Nitrogen 26 mg/dl (7-17); Calcium 10.3 mg/dl (8.4-10.2); Carbon Dioxide 25 mmol/L (22-30); Chloride 106 mmol/L (98-107); Estimated Creatinine Clearance 66 ml/min; Glucose 169 mg/dl (70-99); Magnesium 1.8 mg/dl (1.6-2.3); Phosphorus 3.1 mg/dl (2.5-4.5); Potassium 4.1 mmol/L (3.5-5.1); Sodium 141 mmol/L (135-145); eGFR > 60.00
--- NOTE | 2024-06-12 10:08 | PTCARENOTE ---
Patient received in Chair, anxious, oriented x3. Sinus Rhythm on monitor, blood pressure as documented. Palpable pulses throughout, no edema npoted. Lungs clear on room air. Abdomen soft with positive bowel sounds, c/o abd pain and nausea, Vomited
300cc. IV tylenol given. Voiding clear yellow urine. #20 g in LFA flushed and patent. Right upper midline with IVF and insulin gtt, Call garcia within reach.
[2024-06-12] MEDS: NOVOLIN N vial 0.07 UNITS SC (10:32)
[2024-06-12 10:55] LABS: Glucose - Point of Care 217 mg/dl (70-99)
--- NOTE | 2024-06-12 11:20 | PN.DE.MGMTRT ---
Insulin Management
- -
06/12/2024 Diabetes Management Consult
Patient admitted with n & v and blood sugar problem. Glucose 1235 on admission. PMH type 1 diabetes, DKA, anxiety and gastritis. Prior to admission patient was using the OmniPod with G7. Patient known to me from previous admission with DKA. A1C
pending 9.1 cr 1.3, eGFR >60.
Patient is awake alert and oriented able to discuss diabetes management. States her OmniPod was removed and the hand held controller was sent home. Requested new POD, controller and insulin be brought to hospital. She states no one can bring
them until 2pm.
Patient GAP 22 on admission now down to 8
Will give 7 units NPH now and continue drip for 2 hours and start moderate corrective. Patient c/o nausea so would hold meal until pump is restarted and she can bolus for meals.
Discussed with nurse.
Diabetes History
- -
Type of Diabetes: 1
Pre-Admission Diabetes Regimen
06/11/24 06/11/24 06/11/24
12:51 13:45 15:24
Creatinine 2.0 H Cancelled Cancelled
06/11/24 06/11/24 06/11/24
15:24 16:37 17:45
Creatinine 2.0 H 1.8 H Cancelled
06/11/24 06/12/24 06/12/24
20:53 00:37 04:30
Creatinine 1.5 H 1.4 H 1.3 H
06/12/24
09:12
Creatinine 1.1 H
Lab Results
Hemoglobin A1c 9.1 % (4.0-5.6) H 06/11/24 21:39
Insulin Pump Settings
IP Diabetes Regimen
06/11/24 06/11/24 06/11/24
12:29 12:51 13:45
Glucose 1235 H* Cancelled
POC Glucose > 600 H*
06/11/24 06/11/24 06/11/24
15:15 15:24 15:24
Glucose Cancelled 860 H*
POC Glucose > 600 H*
06/11/24 06/11/24 06/11/24
16:30 16:37 16:37
Glucose 703 H* Cancelled
POC Glucose > 600 H*
06/11/24 06/11/24 06/11/24
17:36 17:42 17:45
Glucose 713 H* Cancelled
POC Glucose > 600 H*
06/11/24 06/11/24 06/11/24
18:26 18:34 19:32
Glucose 664 H*
POC Glucose > 600 H* 589 H*
06/11/24 06/11/24 06/11/24
19:39 20:47 20:53
Glucose 570 H* 466 H*
POC Glucose 480 H*
06/11/24 06/11/24 06/11/24
20:53 21:32 21:39
Glucose Cancelled 417 H
POC Glucose 441 H
06/11/24 06/11/24 06/12/24
22:35 23:34 00:33
Glucose
POC Glucose 382 H 274 H 220 H
06/12/24 06/12/24 06/12/24
00:37 01:33 02:30
Glucose 204 H
POC Glucose 166 H 141 H
06/12/24 06/12/24 06/12/24
03:34 04:30 04:31
Glucose 163 H
POC Glucose 143 H 245 H
06/12/24 06/12/24 06/12/24
05:38 06:33 07:31
Glucose
POC Glucose 157 H 156 H 168 H
06/12/24 06/12/24 06/12/24
08:42 09:12 09:34
Glucose 169 H
POC Glucose 151 H 194 H
06/12/24
10:33
Glucose
POC Glucose 217 H
Patient Education
[2024-06-12] MEDS: PEPCID 20 MG IV (11:52)
[2024-06-12] MEDS: FLEXERIL 5 MG PO ×2 (11:52→18:37)
[2024-06-12] MEDS: NSS (PRESERVATIVE FREE) 8 ML IV (11:53)
[2024-06-12] MEDS: TIGAN 200 MG IM (11:53)
[2024-06-12 12:08] LABS: Glucose - Point of Care 187 mg/dl (70-99)
--- NOTE | 2024-06-12 12:49 | PTCARENOTE ---
Pt crying, tremulous, c/o neck to pelvis pain, Vomiting continues. Human Resources Hr Representative to bedside and meds, CT ordered. Pt reporting black stools to network admin. Tigan, flexoril, Pepcid given as ordered. Mother at bedside attempting to sooth pt. Pt
requesting to come off monitors and take shower. RN stated that pt is not in condidion to come off monitor at this time. Pt states we 'don't know or care what she is going through.' States she should be able to come off all monitors by now. Verbally
aggressive to RN.
[2024-06-12 14:49] LABS: Urine Albumin Negative (Neg - Trace); Urine Bilirubin Negative (Negative); Urine Character Slightly Cloudy (Clear); Urine Color Straw; Urine Glucose Negative (Negative); Urine Ketone 1+ (Negative); Urine Leukocyte Negative (Negative); Urine Nitrite Negative (Negative); Urine Occult Blood Negative (Negative); Urine Specific Gravity 1.015 (<1.030); Urine Urobilinogen Negative (Neg - 1+)
[2024-06-12 15:27] LABS: Lipase 35 U/L (23-300)
[2024-06-12 16:40] LABS: Glucose - Point of Care 367 mg/dl (70-99)
[2024-06-12] MEDS: LOVENOX 40 MG SC (17:54)
[2024-06-12 18:07] LABS: Glucose - Point of Care 345 mg/dl (70-99)
[2024-06-12] MEDS: TYLENOL 650 MG PO (18:38)
[2024-06-12 19:09] LABS: Blood Urea Nitrogen 20 mg/dl (7-17); Calcium 9.5 mg/dl (8.4-10.2); Carbon Dioxide 24 mmol/L (22-30); Chloride 105 mmol/L (98-107); Estimated Creatinine Clearance 66 ml/min; Glucose 261 mg/dl (70-99); Potassium 3.9 mmol/L (3.5-5.1); Sodium 139 mmol/L (135-145); eGFR > 60.00
[2024-06-12] MEDS: PROTONIX IV 40 MG IV (19:33)
[2024-06-12] MEDS: NSS (PRESERVATIVE FREE) 10 ML IV (19:33)
[2024-06-12] MEDS: 0.45% NACL with KCL 20 MEQ 1000 IV (19:46)
[2024-06-12 21:29] LABS: Glucose - Point of Care 161 mg/dl (70-99)
[2024-06-12] MEDS: DILAUDID 0.25 MG IV (22:12)
[2024-06-13] VITALS (7 sets, daily range): BP systolic 132–180; BP diastolic 79–100
[2024-06-13] MEDS: TIGAN 200 MG IM ×3 (00:31→17:47)
[2024-06-13 00:39] LABS: Glucose - Point of Care 131 mg/dl (70-99)
[2024-06-13] MEDS: ROXICODONE 2.5 MG PO (00:49)
[2024-06-13] MEDS: LIDOCAINE 4% PATCH 1 PATCH TOPICAL (00:50)
[2024-06-13] MEDS: TYLENOL 650 MG PO (00:50)
[2024-06-13] MEDS: FLAGYL 500 MG 100 IV ×2 (00:53→11:08)
--- NOTE | 2024-06-13 01:00 | PTCARENOTE ---
Pt has been c/o Lt lower back pain and nauseas. LEVEL VIAL MARKER notified. See MAR for order for pain and nausea management. Spouse at bedside. Will continue to monitor.
--- NOTE | 2024-06-13 02:31 | DOWNTIME ---
There was a [employer] Client Tool Mechanic Downtime on 06/13/2024 from 0100 to 06/13/2023 at 0205 . Downtime documentation of patient's care, including medication administrations, has been reconciled in the electronic record per guidelines. Refer to the
patient's paper chart under the miscellaneous tab to see printed paper medication records and downtime forms.
[2024-06-13 05:47] LABS: Glucose - Point of Care 223 mg/dl (70-99)
[2024-06-13] MEDS: 0.45% NACL with KCL 20 MEQ 1000 IV ×2 (05:47→17:47)
[2024-06-13 06:17] LABS: % Basophils 0.1 % (0-2); % Immature Granulocytes 0.5 % (0-0.5); % Lymphocytes 5.9 % (20.5-51.1); % Monocytes 4.4 % (1.7-9.3); % Neutrophils 89.1 % (42.2-75.2); Absolute Immature Granulocytes 0.1 10^3/uL (0-0.05); Absolute Lymphocytes 1.1 10^3/uL (1.2-3.4); Absolute Monocytes 0.8 10^3/uL (0.1-0.6); Hematocrit 27.3 % (37.0-47.0); Hemoglobin 8.8 g/dL (12.0-16.0); Mean Corp Hgb Conc. 32.2 g/dL (33.0-37.0); Mean Corpuscular Hgb 25.1 pg (27.0-31.0); Mean Platelet Volume 10.1 fL (7.4-10.4); Nucleated Red Blood Cells % 0 %; Platelet Count 192 10^3/uL (130-400); Red Cell Dist. Width 17.5 % (11.5-14.5); Venous Blood Gas B.E. -3.1 mmol/L (-4 to +4); Venous Blood Gas HCO3 22.7 mmol/L (22-27); Venous Blood Gas O2 Sat % 98.7 %; Venous Blood Gas pCO2 43 mmHg (35-48); Venous Blood Gas pH 7.33 (7.32-7.43); Venous Blood Gas pO2 93 mmHg (30-50); White Blood Cell Count 17.9 10^3/uL (4.8-10.8)
[2024-06-13 06:20] LABS: Venous Blood Gas O2 Therapy 21%
[2024-06-13 06:28] LABS: ALT (SGPT) 36 U/L (0-35); AST (SGOT) 51 U/L (14-36); Albumin 3.7 g/dl (3.5-5.0); Alkaline Phosphatase 103 U/L (38-126); Blood Urea Nitrogen 16 mg/dl (7-17); Calcium 9.4 mg/dl (8.4-10.2); Carbon Dioxide 22 mmol/L (22-30); Chloride 104 mmol/L (98-107); Estimated Creatinine Clearance 73 ml/min; Glucose 255 mg/dl (70-99); Magnesium 1.5 mg/dl (1.6-2.3); Phosphorus 3.3 mg/dl (2.5-4.5); Potassium 4.6 mmol/L (3.5-5.1); Sodium 138 mmol/L (135-145); Total Bilirubin 0.7 mg/dl (0.2-1.3); Total Protein 6.1 g/dl (6.3-8.2); eGFR > 60.00
[2024-06-13 07:51] LABS: Glucose - Point of Care 207 mg/dl (70-99)
[2024-06-13] MEDS: MAGNESIUM SULFATE 102 GRAMS IV (08:00)
[2024-06-13] MEDS: FEOSOL PO ×2 (08:02→08:48)
[2024-06-13] MEDS: NSS (PRESERVATIVE FREE) 10 ML IV ×2 (08:02→20:12)
[2024-06-13] MEDS: PROTONIX IV 40 MG IV ×2 (08:02→20:11)
[2024-06-13] MEDS: THIAMINE INJECTION 100 MG IV (08:05)
[2024-06-13] MEDS: STERILE WATER FOR INJECTION 10 ML IV (08:06)
[2024-06-13] MEDS: MAXIPIME 2000 MG IV (08:06)
[2024-06-13] MEDS: DILAUDID 0.5 MG IV ×3 (08:36→20:16)
--- NOTE | 2024-06-13 08:57 | W.PN.HOSP.TC ---
Addendum entered and electronically signed by Philipp Lucas MD 06/13/24 23:37:
Attending Addendum-I saw and evaluated the patient. I reviewed the resident�s note and agree with findings and plan as documented in the resident�s note. feels less abd and back pain post Dilaudid. denies N/V. wants to try to eat. No diarrhea.
complains of urinary frequency and thirst. Full 12 point ROS reviewed and negative except as documented Exam- vitals reviewed in EMR GEN-NAD heart RRR no M/R/G lungs clear abd soft mild generalized tenderness no rebound/guarding. Ext No edema Neuro
AAO x 3
Plan:
# DKA
# Acute metabolic acidosis
# Type I diabetic since age 18
- on admission BS 1235! anion gap corrected - 28, ph 7.13, Co2<5, pos beta hydroxy/ketonuria
- gap closed x 2 AG corrected 9.5->transferred to tele
- insulin gtt transitioned to insulin pump
- appreciate input from DM WATER QUALITY MANAGER educator
#SIRS
#Hx of reactive leukocytosis
-WBC 36->25->17
-UA negative, blood cx x 2 - NGTD
-Check CXR-reviewed no infiltrate
-COVID swab-neg
-IV Vanco, Iv Zosyn x 1 given on ED
-DC cefepime and metro no signs of bacterial infection
-ct neck and abd/pelvis-no infection
#RUL pulm nodule
- f/u s OP
- d/w patient
#Acute hypotension
- resolved
- from dehydration
- restart lisinopril on DC
- improved with IVF
# Hypomagnesemia
- replete
# Transaminitis
- trend
#KB due to hypovolemia
-resolved, baseline 0.8
-Continue IVF until taking PO
-HOLD LISINOPRIL 5mg daily
follow bmp
# Hyperkalemia
- resolved
- repeat BMP in am
# Pseudohyponatremia
- resolved
- repeat BMP in am
#Hx cyclical vomiting with history of marijuana use
#Marijuana use
- cessation advised
#Iron deficiency anemia
- cont IRON
- repeat CBC in am
Dvt proph
- sq heparin
full code
Dispo DC home in 1-2 days when able to tolerate PO and sugars stable
Time spent coordinating care, review of plan of care with resident, personally reviewed records in EMR, med rec, consults, notes, labs, radiology, d/w nursing � 51 mins
Original Note:
Today's Communication/Plan
-
Encourage oral feeding and reassess blood glucose
Assessment / Plan
Assessment / Plan
#DKA with acute metabolic acidosis
Diagnosed at age 18
Transferred from ICU to telemetry yesterday
Blood sugar originally 1200+, last 255.
Currently on D5 one half normal saline at 150 mL/h
Anion gap closed x 2.
[employer] Internship following, appreciate input
Insulin drip stopped. Transition to self insulin pump.
certified adaptive physical educator on board
Repeat labs per protocol
Continue Zofran as needed for nausea and vomiting
0.5 Dilaudid as needed for pain. K-pad added for heat support.
Lozenges added for throat pain support
#Constipation
Patient has not had bowel movement in multiple days
Start bowel regimen
#Urinary frequency
New frequency over the last day. No burning or blood in urine
Urinalysis ordered
#SIRS
WBC 36, now 17.9. Continue to trend
UA negative, blood culture negative
Chest x-ray negative
COVID-negative
Single dose of IV vancomycin and Zosyn given in ED, transitioned to cefepime and metronidazole. Now stopped
#Acute hypotension
Secondary to dehydration
Hold lisinopril
Improved with IV fluids, continued maintenance
#KB secondary to hypovolemia
Creatinine 1.0 with baseline 0.8
Continue IV fluid
Hold lisinopril
Follow BNP
#Hyperkalemia
EKG changes noted
Calcium gluconate and bicarb given in ED, V. tach stabilized
Resolved
Repeat BMP per protocol
#Pseudohyponatremia
Resolved
Continue to monitor
#Marijuana use
Recommended cessation
History of cyclical vomiting secondary to marijuana use
#Iron deficiency anemia
Monitor CBC
DVT prophylaxis�subcu heparin
Full code
Anticipated Discharge: 24 - 48 hours
Subjective/Interval History
-
Date of Service: June 13, 2024
Patient reports that overnight she was not able to tolerate any food. She still has nausea but is not vomiting anymore. She still states she has abdominal and back pain. She reports no headaches, vomiting, chest pain, shortness of breath or lower
extremity pain. She reports some urinary frequency although urinalysis was negative. She was transitioned to telemetry yesterday afternoon and her personal insulin monitor was started.
Objective Data
-
Labs:
Laboratory Results
06/13/24
05:57
WBC 17.9 H
Hgb 8.8 L
Hct 27.3 L
Plt Count 192 D
Sodium 138
Potassium 4.6
Chloride 104
Carbon Dioxide 22
BUN 16
Creatinine 1.0
Glucose 255 H
Calcium 9.4
Total Bilirubin 0.7
AST 51 H
ALT 36 H
Alkaline Phosphatase 103
Vital Signs:
Vital Signs
Temp Pulse Resp BP Pulse Ox
99.3 F 71 17 132/86 99
06/13/24 07:39 06/13/24 07:39 06/13/24 07:39 06/13/24 07:39 06/13/24 07:39
I&O
06/12/24 06/13/24 06/14/24
06:59 06:59 06:59
Intake Total 2692 / 2844 3204 / 3204
Output Total 1000 / 1000 1300 / 1300
Balance 1692 / 1844 190 / 1904
Review of Systems
-
History Source: Patient
Constitutional: Reports No Symptoms
EENT: Reports No Symptoms Reported
Respiratory: Reports No Symptoms
Cardiac: Reports No Symptoms
Abdomen/GI: Reports Nausea
Genitourinary: Reports Frequency
Endocrine: Reports Polyuria
Psych: Reports Depressed
Physical Exam
-
General: Well Developed, Well Nourished, No Apparent Distress, Comfortable and Conversant
HEENT: Normocephalic and Atraumatic
Respiratory: Clear to Auscultation
Cardiac: Regular Rhythm and S1/S2
GI: Soft, Nondistended and Tender
Musculoskeletal: No Clubbing, No Cyanosis and No Edema
Skin: Warm and Dry
Neuro: AO x 3
Psych: Calm
Data Reviewed
-
Old Records: Reviewed
--- NOTE | 2024-06-13 09:26 | PN.DE.MGMTRT ---
Insulin Management
- -
06/13/2024 Diabetes Management Consult Follow up
Patient admitted with n & v and blood sugar problem. Glucose 1235 on admission. PMH type 1 diabetes, DKA, anxiety and gastritis. Prior to admission patient was using the OmniPod with G7. Patient known to me from previous admission with DKA. A1C
9.1, cr 1.3, eGFR >60.
Patient is awake alert and oriented able to discuss diabetes management. States she sees Dr. Maki for ongoing diabetes management.
OmniPod restarted 06/12 afternoon. Patient able to manage without difficulty. Family did not bring a new sensor so patient is in Manual mode. Pump settings:
Basal Bolus Correction
12am .55 8.5 30
5am .75 8.5 30
10am .7 8.5 30
3pm .8 8.5 30
9pm .55 8.5 30
24 hour basal total 16.45
Patient to utilize bedside worksheet.
Discussed with nurse.
Diabetes History
- -
Type of Diabetes: 1
Pre-Admission Diabetes Regimen
06/12/24 06/12/24 06/13/24
09:12 18:39 05:57
Creatinine 1.1 H 1.1 H 1.0
Lab Results
Hemoglobin A1c 9.1 % (4.0-5.6) H 06/11/24 21:39
Insulin Pump Settings
IP Diabetes Regimen
06/12/24 06/12/24 06/12/24
09:12 09:34 10:33
Glucose 169 H
POC Glucose 194 H 217 H
06/12/24 06/12/24 06/12/24
11:57 16:39 18:05
Glucose
POC Glucose 187 H 367 H 345 H
06/12/24 06/12/24 06/12/24
18:17 18:39 21:28
Glucose Cancelled 261 H
POC Glucose 161 H
06/13/24 06/13/24 06/13/24
00:38 05:45 05:57
Glucose 255 H
POC Glucose 131 H 223 H
06/13/24
07:50
Glucose
POC Glucose 207 H
Patient Education
[2024-06-13] MEDS: PT'S OWN INSULIN PUMP - NovoLOG 5 UNIT SC (09:39)
--- NOTE | 2024-06-13 10:30 | CM ---
Reviewed the chart notes. CM continues to be available to patient/family and is monitoring medical plan for needs at discharge.
Plan: Discharge to home when medically stable. No needs anticipated at this time.
[2024-06-13 11:52] LABS: Glucose - Point of Care 115 mg/dl (70-99)
[2024-06-13] MEDS: CHLORASEPTIC/SORE THROAT SPRAY 1 SPRAY PO ×2 (12:45→17:47)
[2024-06-13] MEDS: MIRALAX 17 GRAMS PO (12:50)
[2024-06-13] MEDS: PT'S OWN INSULIN PUMP - NovoLOG 1.6 UNIT SC (13:07)
[2024-06-13] MEDS: APRESOLINE 5 MG IV (15:57)
[2024-06-13 16:57] LABS: Glucose - Point of Care 92 mg/dl (70-99)
[2024-06-13] MEDS: LOVENOX SC ×2 (17:47→17:50)
[2024-06-13 18:18] LABS: Glucose - Point of Care 100 mg/dl (70-99)
[2024-06-13 18:21] LABS: Urine Albumin Trace (Neg - Trace); Urine Bilirubin Negative (Negative); Urine Character Slightly Cloudy (Clear); Urine Color Yellow; Urine Glucose Negative (Negative); Urine Ketone 2+ (Negative); Urine Leukocyte 1+ (Negative); Urine Nitrite Negative (Negative); Urine Occult Blood 1+ (Negative); Urine Urobilinogen Negative (Neg - 1+)
[2024-06-13] MEDS: PT'S OWN INSULIN PUMP - NovoLOG 2.3 UNIT SC (18:22)
[2024-06-13 18:37] LABS: Urine Squamous Cell >30 /LPF (Few)
[2024-06-13 18:38] LABS: Urine Yeast Few (Negative)
[2024-06-13 18:39] LABS: Urine Bacteria Few (Negative)
[2024-06-13] MEDS: MYCOSTATIN CREAM 1 APPLIC TOPICAL (20:11)
[2024-06-13 21:46] LABS: Glucose - Point of Care 71 mg/dl (70-99)
[2024-06-13] MEDS: PT'S OWN INSULIN PUMP - NovoLOG SC (21:49)
[2024-06-14] MEDS: 0.45% NACL with KCL 20 MEQ 1000 IV (01:53)
[2024-06-14] MEDS: DILAUDID 0.5 MG IV ×2 (02:48→13:43)
[2024-06-14 03:35] VITALS: BP 164/101
[2024-06-14] MEDS: CHLORASEPTIC/SORE THROAT SPRAY 1 SPRAY PO ×2 (07:00→21:05)
[2024-06-14 07:10] VITALS: BP 175/91
[2024-06-14 07:18] LABS: Glucose - Point of Care 252 mg/dl (70-99)
--- NOTE | 2024-06-14 08:54 | PN.DE.MGMTRT ---
Insulin Management
- -
06/14/2024 Diabetes Management Consult Follow up
Patient admitted with n & v and blood sugar problem. Glucose 1235 on admission. PMH type 1 diabetes, DKA, anxiety and gastritis. Prior to admission patient was using the OmniPod with Dexcom G7. Patient known to me from previous admission with
DKA. States she sees Dr. Maki for ongoing diabetes management. A1C 9.1, cr 1.3, eGFR >60.
Patient is awake alert and oriented able to discuss diabetes management.
OmniPod restarted 06/12 afternoon. Patient able to manage without difficulty. Family did not bring a new sensor so patient is in Manual mode.
Pump settings:
Basal Bolus Correction
12am .55 8.5 30
5am .75 8.5 30
10am .7 8.5 30
3pm .8 8.5 30
9pm .55 8.5 30
24 hour basal total 16.45
06/13 Premeal Glucose stable and in range 92 to 115. Patient to utilize bedside worksheet.
Will make no changes to current pump settings.
Discussed with nurse.
Diabetes History
- -
Type of Diabetes: 1
Pre-Admission Diabetes Regimen
Lab Results
Hemoglobin A1c 9.1 % (4.0-5.6) H 06/11/24 21:39
Insulin Pump Settings
IP Diabetes Regimen
06/13/24 06/13/24 06/13/24
11:50 16:56 18:17
POC Glucose 115 H 92 100 H
06/13/24 06/14/24
21:45 07:16
POC Glucose 71 252 H
Meal type: Dinner
Meal type: Lunch
Meal type: Breakfast
Amount consumed: 100%
Amount consumed: 50%
Amount consumed: 100%
Patient Education
[2024-06-14] MEDS: THIAMINE INJECTION 100 MG IV (08:56)
[2024-06-14] MEDS: PROTONIX IV 40 MG IV (08:56)
[2024-06-14] MEDS: FEOSOL PO (08:56)
[2024-06-14] MEDS: NSS (PRESERVATIVE FREE) 10 ML IV (08:56)
[2024-06-14 08:58] LABS: Glucose - Point of Care 245 mg/dl (70-99)
[2024-06-14] MEDS: MYCOSTATIN CREAM 1 APPLIC TOPICAL ×2 (08:59→21:00)
[2024-06-14] MEDS: MIRALAX PO (09:01)
[2024-06-14] MEDS: TYLENOL 650 MG PO ×2 (09:03→21:05)
[2024-06-14] MEDS: TUMS CHEWABLE TABLET 400 MG PO ×2 (09:03→17:39)
[2024-06-14] MEDS: PT'S OWN INSULIN PUMP - NovoLOG 4 UNIT SC (09:11)
--- NOTE | 2024-06-14 09:41 | W.PN.HOSP.TC ---
Addendum entered and electronically signed by Philipp Lucas MD 06/14/24 22:25:
Attending Addendum-I saw and evaluated the patient. I reviewed the resident�s note and agree with findings and plan as documented in the resident�s note. denies N/V. tolerating po but still with poor appetite. per nursing dark stools heme pos,
complains of vaginal itch and dark stools. seen with present. Full 12 point ROS reviewed and negative except as documented Exam- vitals reviewed in EMR GEN-NAD heart RRR no M/R/G lungs clear abd soft minimal generalized tenderness to deep
palpation no rebound/guarding. Ext No edema Neuro AAO x 3
Plan:
# DKA
- resolved
# Acute metabolic acidosis
- resolved
# Type I diabetic since age 18
- on admission BS 1235! anion gap corrected - 28, ph 7.13, Co2<5, pos beta hydroxy/ketonuria
- gap closed x 2 AG corrected 9.5->transferred fro ICU->tele->med surg
- insulin gtt transitioned to insulin pump- tolerating well, sugars well controlled
- appreciate input from DM DRAGLINE OPERATOR HELPER educator
#SIRS
#reactive leukocytosis
-WBC 36->25->17->10.6
-UA negative, blood cx x 2 - NGTD
-Check CXR-reviewed no infiltrate
-COVID swab-neg
-IV Vanco, Iv Zosyn x 1 given on ED
-DC cefepime and metro no signs of bacterial infection
-ct neck and abd/pelvis-no infection
# Heme pos Stool
- h and h stable
- check stool studies
- follow us as OP
# Vaginal Yeast Infection
- check UA
- Diflucan x 1
#RUL pulm nodule
- f/u s OP
- d/w patient
#Acute hypotension
- resolved
- from dehydration
- restart lisinopril on DC
- improved with IVF
# Hypomagnesemia
- resolved
# Transaminitis
- trending down
#KB due to hypovolemia
-resolved, baseline 0.8
-redstart LISINOPRIL 5mg daily on DC
follow bmp
# Hyperkalemia
- resolved
- repeat BMP in am
# Hyponatremia
- due to hypovolemia
- encourage PO
- repeat BMP in am
#Hx cyclical vomiting with history of marijuana use
#Marijuana use
- cessation advised
#Iron deficiency anemia
- cont IRON
- repeat CBC in am
Dvt proph
- sq heparin
full code
Dispo DC home in am if stable
Time spent coordinating care, review of plan of care with resident, personally reviewed records in EMR, med rec, consults, notes, labs, radiology, d/w nursing and � 52 mins
Original Note:
Today's Communication/Plan
-
Continue attempts for oral feeding
Discontinue fluids
Prep for discharge
Assessment / Plan
Assessment / Plan
#DKA with acute metabolic acidosis
Diagnosed at age 18
Transferred from ICU to telemetry. Transition today to MedSurg.
Blood sugar originally 1200+
Discontinue D5 one half normal saline today since patient is tolerating oral food
Anion gap closed x 2.
Insulin drip stopped. Transition to self insulin pump.
chemical educator on board
Repeat labs per protocol
Continue Zofran as needed for nausea and vomiting
0.5 Dilaudid as needed for pain. K-pad added for heat support.
Lozenges added for throat pain support
#Constipation
Patient has not had bowel movement in multiple days
Start bowel regimen
Now resolved
#Diarrhea
Heme positive
Stool cultures pending
C. difficile negative, Giardia cryptosporidium negative. Salmonella pending Campylobacter pending Shiga negative.
#Vaginal itching
Concern for yeast infection
Nystatin cream managing symptoms well
Diflucan x 1
#GERD
Follow with GI outpatient
Continue Protonix
#Urinary frequency
New frequency over the last day. No burning or blood in urine
Urinalysis ordered
#SIRS
WBC 36, now 17.9. Continue to trend
UA negative, blood culture negative
Chest x-ray negative
COVID-negative
Single dose of IV vancomycin and Zosyn given in ED, transitioned to cefepime and metronidazole. Now stopped
#Acute hypotension
Secondary to dehydration
Hold lisinopril
Improved with IV fluids, continued maintenance
#KB secondary to hypovolemia
Creatinine 1.0 with baseline 0.8
Continue IV fluid
Hold lisinopril
Follow BNP
#Hyperkalemia
EKG changes noted
Calcium gluconate and bicarb given in ED, V. tach stabilized
Resolved
Repeat BMP per protocol
#Pseudohyponatremia
Resolved
Continue to monitor
#Marijuana use
Recommended cessation
History of cyclical vomiting secondary to marijuana use
#Iron deficiency anemia
Monitor CBC
DVT prophylaxis�subcu heparin
Full code
Anticipated Discharge: Within 24 hours
Subjective/Interval History
-
Date of Service: June 14, 2024
Patient reports increased stool over the last 12 hours. Stool was heme positive and cultures were sent out. She reports of some vaginal itching which is managed well with nystatin cream. She attempted to eat food orally yesterday evening,
completed half a bowl of noodles soup and some red Jell-O. She will attempt to eat again this morning after which recommendations for fluid discontinuation can be made. She states she continues to have some acid reflux-like sensations despite
being on Protonix.
Objective Data
-
Labs:
Laboratory Results
06/14/24
09:30
WBC Pending
Hgb Pending
Hct Pending
Plt Count Pending
Sodium Pending
Potassium Pending
Chloride Pending
Carbon Dioxide Pending
BUN Pending
Creatinine Pending
Glucose Pending
Calcium Pending
Total Bilirubin Pending
AST Pending
ALT Pending
Alkaline Phosphatase Pending
Vital Signs:
Vital Signs
Temp Pulse Resp BP Pulse Ox
98.4 F 56 16 175/91 100
06/14/24 07:10 06/14/24 07:10 06/14/24 07:10 06/14/24 07:10 06/14/24 07:10
I&O
06/13/24 06/14/24 06/15/24
06:59 06:59 06:59
Intake Total 3204 / 3204 2640 / 2640
Output Total 1300 / 1300
Balance 1904 / 1904 2640 / 2640
Review of Systems
-
History Source: Patient
Constitutional: Reports No Symptoms
EENT: Reports No Symptoms Reported
Respiratory: Reports No Symptoms
Cardiac: Reports No Symptoms
Abdomen/GI: Reports No Symptoms
Genitourinary: Reports No Symptoms
Musculoskeletal: Reports No Symptoms
Skin: Reports No Symptoms
Physical Exam
-
General: Well Developed, Well Nourished, No Apparent Distress, Comfortable and Conversant
HEENT: Normocephalic and Atraumatic
Respiratory: Clear to Auscultation
Cardiac: Regular Rhythm and S1/S2
GI: Soft, Nontender, Nondistended and Normal Bowel Sounds
Musculoskeletal: No Clubbing, No Cyanosis and No Edema
Skin: Warm and Dry
Neuro: AO x 3
Psych: Calm
Data Reviewed
-
Labs: Labs Reviewed by me and Discussed with Physician
Old Records: Reviewed
[2024-06-14 09:56] LABS: ALT (SGPT) 38 U/L (0-35); AST (SGOT) 58 U/L (14-36); Albumin 3.4 g/dl (3.5-5.0); Alkaline Phosphatase 91 U/L (38-126); Blood Urea Nitrogen 11 mg/dl (7-17); Calcium 8.3 mg/dl (8.4-10.2); Carbon Dioxide 22 mmol/L (22-30); Chloride 100 mmol/L (98-107); Estimated Creatinine Clearance 104 ml/min; Glucose 233 mg/dl (70-99); Sodium 132 mmol/L (135-145); Total Bilirubin 0.5 mg/dl (0.2-1.3); Total Protein 5.8 g/dl (6.3-8.2); eGFR > 60.00
[2024-06-14 10:17] LABS: Magnesium 1.6 mg/dl (1.6-2.3)
[2024-06-14 11:45] VITALS: BP 169/100
[2024-06-14 12:06] LABS: % Basophils 0.3 % (0-2); % Eosinophils 0.1 % (0-6); % Immature Granulocytes 0.4 % (0-0.5); % Monocytes 6.8 % (1.7-9.3); % Neutrophils 72.4 % (42.2-75.2); Absolute Lymphocytes 2.1 10^3/uL (1.2-3.4); Absolute Monocytes 0.7 10^3/uL (0.1-0.6); Absolute Neutrophils 7.7 10^3/uL (1.4-6.5); Hemoglobin 10.2 g/dL (12.0-16.0); Mean Corp Hgb Conc. 30.9 g/dL (33.0-37.0); Mean Corpuscular Volume 80.9 fL (81.0-99.0); Nucleated Red Blood Cells % 0 %; Platelet Count 178 10^3/uL (130-400); Red Blood Cell Count 4.08 10^6/uL (4.20-5.40); Red Cell Dist. Width 17.9 % (11.5-14.5); White Blood Cell Count 10.6 10^3/uL (4.8-10.8)
[2024-06-14] MEDS: ZESTRIL 10 MG PO (12:17)
[2024-06-14] MEDS: DIFLUCAN 150 MG PO (12:17)
[2024-06-14 15:05] VITALS: BP 148/82
[2024-06-14 15:05] LABS: Glucose - Point of Care 159 mg/dl (70-99)
[2024-06-14] MEDS: PT'S OWN INSULIN PUMP - NovoLOG 6 UNIT SC (15:22)
--- NOTE | 2024-06-14 16:43 | CM ---
Patient seen at bedside.
per patient potential discharge tomorrow
No needs
PLAN: Home, no needs
family to transport
[2024-06-14 16:51] LABS: Glucose - Point of Care 65 mg/dl (70-99)
[2024-06-14] MEDS: LOVENOX SC (17:11)
[2024-06-14 17:38] LABS: Glucose - Point of Care 64 mg/dl (70-99)
[2024-06-14] MEDS: PT'S OWN INSULIN PUMP - NovoLOG SC ×2 (17:39→23:03)
[2024-06-14 18:04] LABS: Glucose - Point of Care 70 mg/dl (70-99)
[2024-06-14] MEDS: PROTONIX 40 MG PO (21:00)
[2024-06-14 21:33] LABS: Glucose - Point of Care 108 mg/dl (70-99)
[2024-06-14] MEDS: MYCOSTATIN ORAL SUSPENSION 5 ML PO (21:57)
[2024-06-14 23:12] VITALS: BP 152/87
[2024-06-15 03:20] LABS: Glucose - Point of Care 220 mg/dl (70-99)
--- NOTE | 2024-06-15 03:49 | PTCARENOTE ---
Patients 3am blood sugar was 220 she gave herself 3 units of insulin via her insulin pump.
--- NOTE | 2024-06-15 07:40 | PN.DE.MGMTRT ---
Insulin Management
- -
06/15/2024: Diabetes Management Follow up
Patient admitted with n & v and blood sugar problem. Glucose 1235 on admission. PMH type 1 diabetes, DKA, anxiety and gastritis. Prior to admission patient was using the OmniPod with Dexcom G7. Patient known to me from previous admission with
DKA. States she sees Dr. Maki for ongoing diabetes management. A1C 9.1, cr 1.3, eGFR >60.
Patient is awake alert and oriented able to discuss diabetes management. Family at bedside.
OmniPod restarted 06/12 afternoon.
Pump settings:
Basal Bolus Correction
12am .55 8.5 30
5am .75 8.5 30
10am .7 8.5 30
3pm .8 8.5 30
9pm .55 8.5 30
24 hour basal total 16.45
06/14 had an episode of Hypoglycemia as low as 64 at dinner due to poor oral intake, otherwise, glucose stable and in range
Patient able to manage without difficulty and utilize bedside worksheet.
Will make no changes to current pump settings.
Discussed with nurse.
Diabetes History
- -
Type of Diabetes: 1
Pre-Admission Diabetes Regimen
06/14/24
09:30
Creatinine 0.7
Lab Results
Hemoglobin A1c 9.1 % (4.0-5.6) H 06/11/24 21:39
Insulin Pump Settings
IP Diabetes Regimen
06/14/24 06/14/24 06/14/24
08:56 09:30 15:03
Glucose 233 H
POC Glucose 245 H 159 H
06/14/24 06/14/24 06/14/24
16:47 17:36 18:02
Glucose
POC Glucose 65 L 64 L 70
06/14/24 06/15/24
21:31 03:17
Glucose
POC Glucose 108 H 220 H
Meal type: Dinner
Meal type: Breakfast
Meal type: Breakfast
Amount consumed: 100%
Amount consumed: 70%
Amount consumed: 50%
Patient Education
[2024-06-15 07:42] LABS: Glucose - Point of Care 190 mg/dl (70-99)
[2024-06-15] MEDS: FEOSOL 325 MG PO (08:08)
[2024-06-15] MEDS: ZESTRIL 10 MG PO (08:08)
[2024-06-15] MEDS: PROTONIX 40 MG PO (08:08)
[2024-06-15] MEDS: THIAMINE INJECTION 100 MG IV (08:09)
[2024-06-15] MEDS: MYCOSTATIN ORAL SUSPENSION 5 ML PO ×2 (08:09→12:00)
[2024-06-15] MEDS: MIRALAX PO ×2 (08:09→08:19)
[2024-06-15] MEDS: MYCOSTATIN CREAM 1 APPLIC TOPICAL (08:09)
[2024-06-15] MEDS: CHLORASEPTIC/SORE THROAT SPRAY 1 SPRAY PO (08:10)
[2024-06-15 08:11] LABS: % Basophils 0.3 % (0-2); % Eosinophils 0.3 % (0-6); % Immature Granulocytes 0.8 % (0-0.5); % Lymphocytes 12.9 % (20.5-51.1); % Monocytes 7.4 % (1.7-9.3); % Neutrophils 78.3 % (42.2-75.2); Absolute Immature Granulocytes 0.1 10^3/uL (0-0.05); Absolute Lymphocytes 1.3 10^3/uL (1.2-3.4); Absolute Monocytes 0.7 10^3/uL (0.1-0.6); Absolute Neutrophils 7.7 10^3/uL (1.4-6.5); Hematocrit 32.6 % (37.0-47.0); Hemoglobin 10.4 g/dL (12.0-16.0); Mean Corp Hgb Conc. 31.9 g/dL (33.0-37.0); Mean Corpuscular Hgb 25.3 pg (27.0-31.0); Mean Corpuscular Volume 79.3 fL (81.0-99.0); Mean Platelet Volume 9.8 fL (7.4-10.4); Nucleated Red Blood Cells % 0 %; Platelet Count 154 10^3/uL (130-400); Red Blood Cell Count 4.11 10^6/uL (4.20-5.40); Red Cell Dist. Width 17.9 % (11.5-14.5); White Blood Cell Count 9.9 10^3/uL (4.8-10.8)
[2024-06-15] MEDS: DILAUDID 0.5 MG IV (08:11)
[2024-06-15 08:21] VITALS: BP 168/98
[2024-06-15 08:28] LABS: ALT (SGPT) 33 U/L (0-35); AST (SGOT) 39 U/L (14-36); Albumin 3.9 g/dl (3.5-5.0); Alkaline Phosphatase 129 U/L (38-126); Blood Urea Nitrogen 9 mg/dl (7-17); Calcium 9.2 mg/dl (8.4-10.2); Carbon Dioxide 24 mmol/L (22-30); Chloride 96 mmol/L (98-107); Estimated Creatinine Clearance 104 ml/min; Glucose 209 mg/dl (70-99); Sodium 136 mmol/L (135-145); Total Bilirubin 0.8 mg/dl (0.2-1.3); Total Protein 6.4 g/dl (6.3-8.2); eGFR > 60.00
[2024-06-15] MEDS: PT'S OWN INSULIN PUMP - NovoLOG 3 UNIT SC (09:36)
--- NOTE | 2024-06-15 09:47 | CM ---
Reviewed the chart notes and spoke with the patient and her at the bedside. Anticipated discharge to home with no needs. Family to transport. CM continues to be available to patient/family and is monitoring medical plan for needs at
discharge.
Plan: Discharge to home when medically stable. No needs identified at this time.
[2024-06-15] MEDS: MAALOX 30 ML PO (12:00)
[2024-06-15] MEDS: PT'S OWN INSULIN PUMP - NovoLOG SC (12:01)
[2024-06-15 12:02] LABS: Glucose - Point of Care 151 mg/dl (70-99)
[2024-06-15 13:06] VITALS: BP 157/91
--- NOTE | 2024-06-15 13:27 | W.PN.HOSP.TC ---
Addendum entered and electronically signed by Philipp Lucas MD 06/15/24 23:43:
Attending Addendum-I saw and evaluated the patient. I reviewed the resident�s note and agree with findings and plan as documented in the resident�s note. denies N/V. tolerating po. no further dark stools. rflux sensation/buring sensation in throat.
vaginal itch resolved. seen with present. 'Im going home today' Full 12 point ROS reviewed and negative except as documented Exam- vitals reviewed in EMR GEN-NAD heart RRR no M/R/G HEENT throat thrush in back of throat lungs clear abd softNT
no rebound/guarding. Ext No edema Neuro AAO x 3
Plan:
# DKA
- resolved
# Acute metabolic acidosis
- resolved
# Type I diabetic since age 18
- on admission BS 1235! anion gap corrected - 28, ph 7.13, Co2<5, pos beta hydroxy/ketonuria
- gap closed x 2 AG corrected 9.5->transferred fro ICU->tele->med surg
- insulin gtt transitioned to insulin pump- tolerating well, sugars well controlled
- appreciate input from DM BAND MACHINE OPERATOR educator
#SIRS
#reactive leukocytosis
resolved
-UA negative, blood cx x 2 - NGTD
-Check CXR-reviewed no infiltrate
-COVID swab-neg
-IV Vanco, Iv Zosyn x 1 given on ED
-DC cefepime and metro no signs of bacterial infection
-ct neck and abd/pelvis-no infection
# Heme pos Stool
- h and h stable
- follow us as OP
- resolved stool cx neg
# Vaginal Yeast Infection
- Diflucan x 1
# esoph thrust
- nystatin swish and swallow
#RUL pulm nodule
- f/u s OP
- d/w patient
#Acute hypotension
- resolved
- from dehydration
- restart lisinopril on DC
- improved with IVF
# Hypomagnesemia
- resolved
# Transaminitis
- trending down
#KB due to hypovolemia
-resolved, baseline 0.8
-redstart LISINOPRIL 5mg daily on DC
follow bmp
# Hyperkalemia
- resolved
- repeat BMP in am
# Hyponatremia
- resolved
- encourage PO
- repeat BMP in am
#Hx cyclical vomiting with history of marijuana use
#Marijuana use
- cessation advised
#Iron deficiency anemia
- cont IRON
- repeat CBC in am
Dvt proph
- sq heparin
full code
Dispo DC home with
Time spent coordinating care, DC planning, review of DC plan of care with resident, transition of care, review of records, med rec/scripts sent electronically, consults, notes, d/w consultants, nursing, and CM� 31 mins
Original Note:
Today's Communication/Plan
-
prepare for DC
Assessment / Plan
Assessment / Plan
#DKA with acute metabolic acidosis
Diagnosed at age 18
Transferred from ICU to telemetry. Transition today to MedSurg.
Blood sugar originally 1200+
IVF DC. tolerating diet
Anion gap closed x 2.
Insulin drip stopped. Transition to self insulin pump.
hospice educator on board
Repeat labs per protocol
Continue Zofran as needed for nausea and vomiting
0.5 Dilaudid as needed for pain. K-pad added for heat support.
Lozenges added for throat pain support
#Constipation
Patient has not had bowel movement in multiple days
Start bowel regimen
Now resolved
#Diarrhea
Heme positive
Stool cultures negative
FU outpatient
#Vaginal itching
Concern for yeast infection
Nystatin cream managing symptoms well
Diflucan x 1
#GERD
Follow with GI outpatient
Continue Protonix
#Urinary frequency
New frequency over the last day. No burning or blood in urine
Urinalysis ordered
#SIRS
WBC 36, now 9.9. Resolved
UA negative, blood culture negative
Chest x-ray negative
COVID-negative
Single dose of IV vancomycin and Zosyn given in ED, transitioned to cefepime and metronidazole. Now stopped
#Acute hypotension
resolved.
restart lisinopril
#KB secondary to hypovolemia
resolved
#Hyperkalemia
EKG changes noted
Calcium gluconate and bicarb given in ED, V. tach stabilized
Resolved
Repeat BMP per protocol
#Pseudohyponatremia
Resolved
Continue to monitor
#Marijuana use
Recommended cessation
History of cyclical vomiting secondary to marijuana use
#Iron deficiency anemia
Monitor CBC
DVT prophylaxis�subcu heparin
Full code
Anticipated Discharge: Today
Subjective/Interval History
-
Date of Service: June 15, 2024
No acute complaints overnight. Patient states she has good appetite, without NV. Stool cultures negative. Continues to complain of some throat and vaginal discomfort, although well managed on nystatin.
Objective Data
-
Labs:
Laboratory Results
06/15/24
08:05
WBC 9.9
Hgb 10.4 L
Hct 32.6 L
Plt Count 154
Sodium 136
Potassium 4.0
Chloride 96 L
Carbon Dioxide 24
BUN 9
Creatinine 0.7
Glucose 209 H
Calcium 9.2
Total Bilirubin 0.8
AST 39 H
ALT 33
Alkaline Phosphatase 129 H
Vital Signs:
Vital Signs
Temp Pulse Resp BP Pulse Ox
99.1 F 81 18 157/91 100
06/15/24 13:06 06/15/24 13:06 06/15/24 13:06 06/15/24 13:06 06/15/24 13:06
I&O
06/14/24 06/15/24 06/16/24
06:59 06:59 06:59
Intake Total 2640 / 2640 1040 / 1040
Balance 2640 / 2640 1040 / 1040
Review of Systems
-
History Source: Patient
Constitutional: Reports No Symptoms
EENT: Reports Sore Throat
Respiratory: Reports No Symptoms
Cardiac: Reports No Symptoms
Abdomen/GI: Reports No Symptoms
Genitourinary: Reports Vaginal Discharge
Musculoskeletal: Reports No Symptoms
Skin: Reports No Symptoms
Physical Exam
-
General: Well Developed, Well Nourished, No Apparent Distress, Comfortable and Conversant
HEENT: Normocephalic and Atraumatic
Respiratory: Clear to Auscultation
Cardiac: Regular Rhythm and S1/S2
GI: Soft, Nontender, Nondistended and Normal Bowel Sounds
Musculoskeletal: No Clubbing, No Cyanosis and No Edema
Skin: Warm and Dry
Neuro: AO x 3
Psych: Calm
Data Reviewed
-
Labs: Labs Reviewed by me and Discussed with Physician
Old Records: Reviewed
--- NOTE | 2024-06-15 14:21 | W.DCSUMMARY ---
Addendum entered and electronically signed by Philipp Lucas MD 06/15/24 23:44:
Read, reviewed, and agree. See same day progress note for additional details.
Sly Lucas MD
Original Note:
Documented by User: Candice Ivory DO, Resident 06/15/24 16:33
Discharge Summary
Discharge Data
Date of Admission: 06/11/24
Date of Discharge: 06/15/24
-
Pending Results: No
Additional Pending Results:
Discharging Physician : Philipp Lucas MD
Disposition : Home
Primary care physician : Laci Posadas MD
Principal Discharge diagnosis : DKA
Hospital Course : Patient is a 28-year-old female with past medical Type 1 diabetes, diagnosed at age 17, and hypertension who presents to [facility] after her insulin pump stopped working. She states she started to feel 'off' around
midnight and 2 AM woke her up to tell her she was not feeling well. She attempted to take a hot shower to calm down however decided to come to the hospital instead. Her states that this morning she was confused and unable to walk
unassisted from the car to the hospital. In the ED patient was given 2 L of fluid, calcium and bicarb. She was periodically in V. tach until stabilized. An insulin drip was initially started of 7 units. She was given 1 dose of Vanco and Zosyn in
the ED and then transitioned to ceftriaxone and doxycycline on the floors. On day 1 of admission, patient was having severe nausea and vomiting, unable to tolerate a diet. She was managed with Tigan, fluids and Dilaudid for pain. After 2 days she
was able to tolerate food and at this time fluids were discontinued and personal home insulin pump was initiated. On day 3/4 of admission, patient started develop urinary frequency and itching which was treated with nystatin and Diflucan. She was
having some throat discomfort with swallowing, managed with numbing spray and nystatin. She is stable for discharge home and can return to work on Tuesday.
#DKA with acute metabolic acidosis- resolved. continue home insulin pump for glucose management
#Constipation- resolved
#Diarrhea- heme positive, stool cultures negative. follow up OP with GI
#Vaginal itching- continue nystatin cream as needed for symptom management
#GERD- continue protonix
#Urinary frequency- continue to monitor. resolved at time of DC
#SIRS - resolved
#Acute hypotension- continue lisinopril
#KB secondary to hypovolemia- resolved
#Hyperkalemia- resolved
#Pseudohyponatremia- resolved
#Marijuana use- Recommended cessation
#Iron deficiency anemia- continue iron supplementation and Monitor CBC
#lung nodule- FU OP with pcp
Important imaging findings :
CXR 06/11:
IMPRESSION:
No acute cardiopulmonary process.
Abd US 06/12:
IMPRESSION: Limited study, as noted above.
No evidence of cholelithiasis, gallbladder wall thickening or biliary tract dilatation.
No renal collecting system dilatation bilaterally.
Pancreas, spleen and IVC significantly obscured, at least in part due to overlying bowel gas.
CAP CT 06/12:
IMPRESSION:
4 mm noncalcified right upper lobe pulmonary nodule.
Markedly limited evaluation due to numerous factors, as detailed above, without gross focal acute abnormality seen including no findings to suggest pneumonia. Please note, on the basis of this study an acute inflammatory/infectious process of the
abdomen and pelvis although not identified, cannot be excluded.
The [facility] Pulmonary Nodule Advisory Board hotline was called with the findings on 06/12/2024 3:[address] 06/12:
IMPRESSION:
Evaluation markedly limited without intravenous contrast, without gross findings to suggest abnormal focal fluid collection such as an abscess.
Unremarkable upper airway.
4 mm noncalcified right apical pulmonary nodule. Please see separate concurrent CT Chest report.
Discharge Plan
-
Patient Disposition: Home (Routine Discharge)
Discharge Diagnosis/Procedures: DKA
Condition: Good
Diet: As tolerated
Activity: No restrictions and As tolerated
Driving Restrictions: As prior to admission
Bathing Restrictions: None
Stand Alone Forms: Return to Work
Referrals:
Graham Young MD [Active] - in one to two months
Laci Posadas MD [Family Provider] - in less than 1 week
Prescriptions:
New
Sore Throat (phenol) 1.4 % Aerosol,[place]
2 spray PO Q2HPRN PRN (Reason: throat pain) 30 Days Qty: 177 0RF
ferrous sulfate [FeroSul] 325 mg (65 mg iron) Tablet
325 mg PO DAILY 60 Days Qty: 60 0RF
nystatin 100,000 unit/gram Cream
1 applic topical BID Qty: 15 0RF
nystatin 100,000 unit/mL Suspension
5 ml PO QID 5 Days Qty: 100 0RF
pantoprazole 40 mg Tablet,Delayed Release (Dr/Ec)
40 mg PO BID 30 Days Qty: 60 0RF
lisinopril 10 mg Tablet
10 mg PO DAILY Qty: 30 0RF
calcium carbonate [Calcium Antacid] 200 mg calcium (500 mg) Tablet,Chewable
400 mg PO Q4HPRN PRN (Reason: indigestion) 30 Days Qty: 30 0RF
Continued
Patient Own Insulin Pump
0 unit SC .VIA INSULIN LISPRO
Discharge Orders:
Discharge Patient (As Directed); Ordered 06/15/24
Ordered By: Candice Ivory
Discharge Date and Time
Discharge Date/Time: 06/15/24 13:54
Print Language: TELUGU

Documented by User: Philipp Lucas MD 06/15/24 23:39
Discharge Summary
Discharge Data
Date of Admission: 06/11/24
Date of Discharge: 06/15/24
Discharge Plan
-
Patient Disposition: Home (Routine Discharge)
Discharge Diagnosis/Procedures: DKA
Condition: Good
Diet: As tolerated
Activity: No restrictions and As tolerated
Driving Restrictions: As prior to admission
Bathing Restrictions: None
Stand Alone Forms: Return to Work
Referrals:
Graham Young MD [Active] - in one to two months
Laci Posadas MD [Family Provider] - in less than 1 week
Prescriptions:
New
Sore Throat (phenol) 1.4 % Aerosol,[place]
2 spray PO Q2HPRN PRN (Reason: throat pain) 30 Days Qty: 177 0RF
ferrous sulfate [FeroSul] 325 mg (65 mg iron) Tablet
325 mg PO DAILY 60 Days Qty: 60 0RF
nystatin 100,000 unit/gram Cream
1 applic topical BID Qty: 15 0RF
nystatin 100,000 unit/mL Suspension
5 ml PO QID 5 Days Qty: 100 0RF
pantoprazole 40 mg Tablet,Delayed Release (Dr/Ec)
40 mg PO BID 30 Days Qty: 60 0RF
lisinopril 10 mg Tablet
10 mg PO DAILY Qty: 30 0RF
calcium carbonate [Calcium Antacid] 200 mg calcium (500 mg) Tablet,Chewable
400 mg PO Q4HPRN PRN (Reason: indigestion) 30 Days Qty: 30 0RF
Continued
Patient Own Insulin Pump
0 unit SC .VIA INSULIN LISPRO
Discharge Orders:
Discharge Patient (As Directed); Ordered 06/15/24
Ordered By: Candice Ivory
Discharge Date and Time
Discharge Date/Time: 06/15/24 13:54
Print Language: TELUGU
== END 2024-06-15 13:54 | disposition home or self-care (01) | DRG 638 ==
LOC: 2 NORTH 14:55
PROVIDERS: Student in an Organized Health Care Education/Training Program; ADMITTING PHYSICIAN Family Medicine; CONSULT PHYSICIAN Internal Medicine Critical Care Medicine; EMERGENCY PHYSICIAN Emergency Medicine; FAMILY PHYSICIAN Family Medicine
DX: E10.10 Type 1 diabetes mellitus with ketoacidosis without coma (principal); E87.4 Mixed disorder of acid-base balance; I47.20 Ventricular tachycardia, unspecified; N17.9 Acute kidney failure, unspecified; R65.10 Systemic inflammatory response syndrome (SIRS) of non-infectious origin without acute organ dysfunction; Z79.4 Long term (current) use of insulin; Z96.41 Presence of insulin pump (external) (internal); K59.00 Constipation, unspecified; K21.9 Gastro-esophageal reflux disease without esophagitis; E86.1 Hypovolemia; E87.5 Hyperkalemia; D50.9 Iron deficiency anemia, unspecified; R91.1 Solitary pulmonary nodule; K29.70 Gastritis, unspecified, without bleeding; E86.0 Dehydration; Z79.899 Other long term (current) drug therapy; I10 Essential (primary) hypertension; F17.290 Nicotine dependence, other tobacco product, uncomplicated; E78.00 Pure hypercholesterolemia, unspecified; F32.A Depression, unspecified; Z82.49 Family history of ischemic heart disease and other diseases of the circulatory system; Z83.3 Family history of diabetes mellitus; Z11.52 Encounter for screening for COVID-19; F12.90 Cannabis use, unspecified, uncomplicated; F41.9 Anxiety disorder, unspecified; E83.42 Hypomagnesemia
CPT/HCPCS: 70490; 71045; 71250; 74176; 76700; 80048; 80053; 81003; 81015; 82010; 82248; 82805; 82947; 82962; 83036; 83690; 83735; 84100; 84484; 84703; 85025; 85027; 87040; 87045; 87046; 87086; 87324; 87328; 87329; 87427; 87449; 87502; 87798; 87811; 93005; 94640; 96361; 96374; 96375; 99291; J3480

== ENCOUNTER 2024-07-27 17:53 | Emergency (ER) | payer BC, SELFPAY ==
[2024-07-27 17:55] VITALS: BP 128/91
[2024-07-27 17:58] LABS: Glucose - Point of Care 260 mg/dl (70-99)
[2024-07-27 18:12] LABS: Venous Blood Gas B.E. 1.3 mmol/L (-4 to +4); Venous Blood Gas HCO3 26.6 mmol/L (22-27); Venous Blood Gas O2 Sat % 78.6 %; Venous Blood Gas pCO2 44 mmHg (35-48); Venous Blood Gas pH 7.39 (7.32-7.43); Venous Blood Gas pO2 51 mmHg (30-50)
[2024-07-27 18:15] LABS: % Basophils 0.4 % (0-2); % Eosinophils 0.2 % (0-6); % Immature Granulocytes 0.3 % (0-0.5); % Monocytes 6.3 % (1.7-9.3); % Neutrophils 71.8 % (42.2-75.2); Absolute Basophils 0.1 10^3/uL (0-0.2); Absolute Lymphocytes 2.5 10^3/uL (1.2-3.4); Absolute Monocytes 0.7 10^3/uL (0.1-0.6); Absolute Neutrophils 8.4 10^3/uL (1.4-6.5); Hematocrit 34.9 % (37.0-47.0); Hemoglobin 11.1 g/dL (12.0-16.0); Mean Corp Hgb Conc. 31.8 g/dL (33.0-37.0); Mean Corpuscular Hgb 24.2 pg (27.0-31.0); Mean Corpuscular Volume 76.2 fL (81.0-99.0); Mean Platelet Volume 9.8 fL (7.4-10.4); Nucleated Red Blood Cells % 0 %; Platelet Count 300 10^3/uL (130-400); Red Blood Cell Count 4.58 10^6/uL (4.20-5.40); Red Cell Dist. Width 18.5 % (11.5-14.5); White Blood Cell Count 11.7 10^3/uL (4.8-10.8)
[2024-07-27 18:25] LABS: Lactic Acid 1.6 mmol/L (0.7-2.0)
[2024-07-27 18:26] LABS: ALT (SGPT) 18 U/L (0-35); AST (SGOT) 22 U/L (14-36); Albumin 4.4 g/dl (3.5-5.0); Alkaline Phosphatase 110 U/L (38-126); Blood Urea Nitrogen 16 mg/dl (7-17); Calcium 9.3 mg/dl (8.4-10.2); Carbon Dioxide 25 mmol/L (22-30); Chloride 94 mmol/L (98-107); Glucose 281 mg/dl (70-99); Potassium 3.8 mmol/L (3.5-5.1); Sodium 131 mmol/L (135-145); Total Bilirubin 1.4 mg/dl (0.2-1.3); Total Protein 7.4 g/dl (6.3-8.2); eGFR > 60.00
--- NOTE | 2024-07-27 18:26 | ED.GENMED ---
History of Present Illness
General
Chief Complaint: Abdominal Symptoms
Source: patient
Exam Limitations: none
Time Seen by Provider: 07/27/24 18:05
Nursing documentation reviewed up to this point in time: agreed with
History of Present Illness
History of Present Illness:
Patient is a 21-year-old female presenting to the ER for evaluation of nausea vomiting that started Tuesday. She reports she has vomited' too many times to count.' In addition she has had multiple episodes of diarrhea. No sick contacts at home.
She denies any fevers. She is a diabetic and does give herself insulin. She denies any headache fever chills.
Past History
Past History
ED Past Medical History: HTN, IDDM, Psychiatric (Anxiety) and Other (Gastritis)
ED Past Surgical History: Other (Adenoidectomy)
Social History
Tobacco: Non-smoker
Alcohol: Occasional
Drug: Marijuana (daily)
Personal:
Living: with family
Employment: Employed
Family History
Family History: Diabetes
Review of Systems
Review of Systems
Allergies reviewed?: Yes
All Other Systems: ROS reviewed and negative except as documented in HPI and ROS
Constitutional: Reports no symptoms; Denies fever, fatigue or chills
Respiratory: Reports no symptoms
Cardiac: Reports no symptoms
ABD/GI: Reports nausea, vomiting and diarrhea
: Reports no symptoms
Musculoskeletal: Reports no symptoms
Skin: Reports no symptoms
Neurological: Reports no symptoms
Psychiatric: Reports no symptoms
Phy Exam
General Physical Exam
General Presentation: no apparent distress
General age: appears stated age
General Skin: warm and dry
General Habitus: normal
General Mental: alert
General Hydration: dry mucous membranes
Cardiovascular Exam
Cardiovascular Exam: regular rate/rhythm, no murmur and normal peripheral pulses
Pulmonary Exam
Pulmonary Exam: lungs clear and no respiratory distress
Neurological Exam
Neurological Exam: alert and oriented x3
Musculoskeletal Exam
Musculoskeletal Exam: full ROM
Skin Exam
Skin Exam: normal color and warm/dry
Psychiatric Exam
Psychiatric Exam: normal mood/affect
Course
Orders/Labs/Results
Orders:
Orders
07/27/24 18:02
B-Hydroxybutyrate Urgent
Complete Blood Count/With Diff Urgent
Comprehensive Metabolic Panel Urgent
Lactic Acid Urgent
Venous Blood Gas Urgent
%Oxygen/Room Air: RA
07/27/24 18:33
Cardiac Monitoring- Treatment ONCE
IV Insert/Care/Rem.- Treatment PRN
0.9% Sodium Chloride 1000 ml [Nss] 1,000 ml IV BOLUS
Ondansetron Injectable [Zofran] 4 mg IV NOW STA
07/27/24 19:55
COVID-19 Antigen Urgent
Source: Nasal Swab
Influenza A+B Rapid Molecular Urgent
SHARNOA Source: Nasal Swab
Specimen Description:
07/27/24 20:02
Bedside Glucose- Treatment ONCE
Abnormal Lab Results
07/27/24 07/27/24 07/27/24
17:56 18:02 20:01
WBC 11.7 H 10^3/uL
(4.8-10.8)
Hgb 11.1 L g/dL
(12.0-16.0)
Hct 34.9 L %
(37.0-47.0)
MCV 76.2 L fL
(81.0-99.0)
MCH 24.2 L pg
(27.0-31.0)
MCHC 31.8 L g/dL
(33.0-37.0)
RDW 18.5 H %
(11.5-14.5)
Absolute Neuts (auto) 8.4 H 10^3/uL
(1.4-6.5)
Absolute Monos (auto) 0.7 H 10^3/uL
(0.1-0.6)
VBG pO2 51 H mmHg
(30-50)
Sodium 131 L mmol/L
(135-145)
Chloride 94 L mmol/L
(98-107)
Glucose 281 H mg/dl
(70-99)
Total Bilirubin 1.4 H mg/dl
(0.2-1.3)
B-Hydroxybutyrate 2.41 H mmol/L
(0.02-0.27)
POC Glucose 260 H mg/dl 306 H mg/dl
(70-99) (70-99)
07/27/24 18:02
07/27/24 18:02
Vital Signs
Initial and Last Documented VS:
Initial Vital Signs
Temp Pulse Resp BP Pulse Ox
98.2 F 100 18 128/91 99
07/27/24 17:55 07/27/24 17:55 07/27/24 17:55 07/27/24 17:55 07/27/24 17:55
Last Documented Vital Signs
Temp Pulse Resp BP Pulse Ox
98.2 F 64 18 118/78 99
07/27/24 17:55 07/27/24 20:00 07/27/24 20:00 07/27/24 20:00 07/27/24 20:00
[employer] Directory Systems Administrator consulted with Physician
[employer] Directory Systems Administrator consulted with physician?: Yes
Name of Physician Consulted: Nick
MDM/Problems Addressed
Differential Diagnosis Includes:
Not limited to hyperglycemia, DKA, viral syndrome, dehydration, electrolyte abnormality
MDM/Problems Addressed:
Symptoms are likely viral syndrome. Patient is in no acute distress. She is afebrile here. She has vomited multiple times at home since Tuesday and has had several episodes of diarrhea. She is negative for COVID flu here. She did not give a
stool specimen to send out for norovirus or any other stool related viral illness. No recent antibiotics. She denies any UTI symptoms. She was given fluids and Zofran here feeling better tolerating fluids. She is not acidotic she took her own
insulin here and is well-appearing. Case discussed ED physician stable for discharge home with Zofran and fluids likely viral syndrome
*Critical Care Note
Total Time (30-74mins, 75-104mins- exclusive of procedures): Not Applicable
ED Attending Note
-
Portions of this chart may have been created with voice recognition software.� Occasional wrong word or��sound alike� substitutions may have occurred due to the inherent limitations of voice recognition software.
Discharge Plan
Departure
Patient Disposition: Home (Routine Discharge)
Date of Disposition: 07/27/24
Time of Disposition: 21:26
Patient with high blood pressure during this ER visit?: Yes
Covid-19: Not Applicable
Discharge Problem:
Vomiting and diarrhea
Instructions: Diarrhea in teens and adults, Nausea and Vomiting, Adult (DC), BLOOD PRESSURE
Prescriptions:
New
ondansetron 4 mg tablet,disintegrating
4 mg PO Q8H PRN (Reason: nausea and vomiting) Qty: 10 0RF
No Action
ferrous sulfate [FeroSul] 325 mg (65 mg iron) Tablet
325 mg PO DAILY 60 Days Qty: 60 0RF
pantoprazole 40 mg Tablet,Delayed Release (Dr/Ec)
40 mg PO BID 30 Days Qty: 60 0RF
lisinopril 10 mg Tablet
10 mg PO DAILY Qty: 30 0RF
calcium carbonate [Calcium Antacid] 200 mg calcium (500 mg) Tablet,Chewable
400 mg PO Q4HPRN PRN (Reason: indigestion) 30 Days Qty: 30 0RF
insulin glargine U-300 conc [Toujeo Max U-300 SoloStar] 300 unit/mL (3 mL) Insulin Pen
20 unit SC HS
ergocalciferol (vitamin D2) [Vitamin D2] 1,250 mcg (50,000 unit) Capsule
1,250 mcg PO WE
insulin lispro 100 unit/mL Solution
1 - 10 sliding scale dose SC AC
Referrals:
Jennie Duque CRNP [Family Provider] -
Activity Restrictions/Additional Instructions:
As discussed clear fluids for the next 24 hours followed by bland solid foods. A prescription for Zofran was sent to pharmacy take as directed. Follow-up with your family doctor in the next several days and return if any worsening of symptoms
Interventions
Interventions:
*Risk Screen - Suicide Last Done: 07/27/24 18:40
*General Assessment Last Done: 07/27/24 18:41
*Neglect/Abuse Screening Last Done: 07/27/24 18:40
*ED- Fall Risk Assessment Last Done: 07/27/24 18:40
*ED COVID-19 Vaccine History Last Done: 07/27/24 18:40
EK-Eocmvf-Bepbnsdtnw Assessment Last Done: 07/27/24 19:59
Discharge Date and Time
Print Language: [id number]
[2024-07-27 18:35] LABS: B-Hydroxybutyrate 2.41 mmol/L (0.02-0.27)
[2024-07-27 18:40] VITALS: BMI 26.6
[2024-07-27 19:00] VITALS: BP 123/71
[2024-07-27] MEDS: NSS 1000 IV (19:01)
[2024-07-27] MEDS: ZOFRAN 4 MG IV (19:03)
[2024-07-27 20:00] VITALS: BP 118/78
[2024-07-27 20:03] LABS: Glucose - Point of Care 306 mg/dl (70-99)
[2024-07-27 20:21] LABS: COVID-19 Antigen Negative (Negative)
[2024-07-27 21:00] VITALS: BP 120/75
[2024-07-27 21:26] LABS: Glucose - Point of Care 218 mg/dl (70-99)
== END 2024-07-27 21:43 | disposition home or self-care (01) ==
LOC: EMR 17:53
PROVIDERS: Nurse Practitioner; Student in an Organized Health Care Education/Training Program; EMERGENCY PHYSICIAN Emergency Medicine; FAMILY PHYSICIAN Nurse Practitioner Family
DX: R11.2 Nausea with vomiting, unspecified (principal); R19.7 Diarrhea, unspecified; E11.9 Type 2 diabetes mellitus without complications; I10 Essential (primary) hypertension; Z79.4 Long term (current) use of insulin; Z11.52 Encounter for screening for COVID-19
CPT/HCPCS: 96374; 96361; 99284; 80053; 82010; 82805; 82962; 83605; 85025; 87502; 87811

== ENCOUNTER 2024-09-19 08:40 | Inpatient (IN) | payer BC, SELFPAY ==
[2024-09-18 17:27] VITALS: BP 124/81
[2024-09-18 17:42] LABS: Glucose - Point of Care 178 mg/dl (70-99)
[2024-09-18 17:47] LABS: % Basophils 0.2 % (0-2); % Immature Granulocytes 0.2 % (0-0.5); % Lymphocytes 5.1 % (20.5-51.1); % Monocytes 1.9 % (1.7-9.3); % Neutrophils 92.6 % (42.2-75.2); Absolute Lymphocytes 0.7 10^3/uL (1.2-3.4); Absolute Monocytes 0.2 10^3/uL (0.1-0.6); Absolute Neutrophils 11.9 10^3/uL (1.4-6.5); Hematocrit 33.4 % (37.0-47.0); Hemoglobin 10.9 g/dL (12.0-16.0); Mean Corp Hgb Conc. 32.6 g/dL (33.0-37.0); Mean Corpuscular Hgb 24.3 pg (27.0-31.0); Mean Corpuscular Volume 74.6 fL (81.0-99.0); Mean Platelet Volume 9.6 fL (7.4-10.4); Nucleated Red Blood Cells % 0 %; Platelet Count 313 10^3/uL (130-400); Red Blood Cell Count 4.48 10^6/uL (4.20-5.40); Red Cell Dist. Width 17.1 % (11.5-14.5); White Blood Cell Count 12.9 10^3/uL (4.8-10.8)
[2024-09-18 17:59] LABS: HCG, Serum Qualitative Screen Negative
[2024-09-18 18:01] VITALS: BMI 27.9
[2024-09-18 18:03] LABS: ALT (SGPT) 18 U/L (0-35); AST (SGOT) 28 U/L (14-36); Albumin 4.3 g/dl (3.5-5.0); Alkaline Phosphatase 112 U/L (38-126); Blood Urea Nitrogen 11 mg/dl (7-17); Calcium 10.3 mg/dl (8.4-10.2); Carbon Dioxide 28 mmol/L (22-30); Chloride 98 mmol/L (98-107); Glucose 181 mg/dl (70-99); Lipase 48 U/L (23-300); Sodium 138 mmol/L (135-145); Total Bilirubin 0.9 mg/dl (0.2-1.3); Total Protein 7.4 g/dl (6.3-8.2); eGFR > 60.00
[2024-09-18] MEDS: NSS 1000 IV ×2 (18:59→22:31)
[2024-09-18] MEDS: ZOFRAN 4 MG IV ×2 (19:00→22:32)
[2024-09-18] MEDS: TORADOL 30 MG IV (19:00)
[2024-09-18] MEDS: PROTONIX IV 40 MG IV (19:00)
[2024-09-18 19:08] VITALS: BP 141/75
--- NOTE | 2024-09-18 19:15 | ED.GENMED ---
History of Present Illness
<Philipp Barry MD - Last Filed: 09/20/24 06:08>
General
Chief Complaint: Blood Sugar Problem
Source: patient
Exam Limitations: none
Time Seen by Provider: 09/18/24 18:38
Nursing documentation reviewed up to this point in time: agreed with
History of Present Illness
History of Present Illness:
Patient with history of insulin-dependent diabetes, presents to ED secondary to recurrent abdominal pain, associated with nausea, vomiting, and loose bowel movements. When she checked her blood sugar it was 300, for which she administered insulin
prior to arrival. Denies fever or chills. Denies trauma. Denies recent travel. Denies sick contact. Unfortunately, patient and family state that she experiences similar symptoms once every month. Patient does not know why. Denies recent
change in medications or diet.
Past History
<Philipp Barry MD - Last Filed: 09/20/24 06:08>
Past History
ED Past Medical History: HTN, IDDM, Psychiatric (Anxiety) and Other (Gastritis)
ED Past Surgical History: Other (Adenoidectomy)
Social History
Tobacco: Non-smoker
Alcohol: Occasional
Drug: Marijuana (daily)
Personal:
Living: with family
Employment: Employed
Family History
Family History: Diabetes
Review of Systems
<Philipp Barry MD - Last Filed: 09/20/24 06:08>
Review of Systems
Allergies reviewed?: Yes
All Other Systems: ROS reviewed and negative except as documented in HPI and ROS
Constitutional: Reports no symptoms; Denies fever or chills
Respiratory: Reports no symptoms
Cardiac: Reports no symptoms
ABD/GI: Reports abdominal pain, nausea, vomiting and diarrhea
Musculoskeletal: Reports no symptoms
Skin: Reports no symptoms
Neurological: Reports no symptoms
Phy Exam
<Philipp Barry MD - Last Filed: 09/20/24 06:08>
Physical Exam
Physical Exam:
Physical Exam
General: mild distress, not acutely ill. afebrile
Head: nc/at. eomi
Neck: supple. normal range of motion.
Heart: s1/s2 regular rate and rhythm, no murmur.
Lungs: no acute respiratory distress. clear bilaterally
Abdomen: normal bowel sounds. mild diffuse tenderness to palpation
Neuro: alert and oriented x 3. no focal neurological deficits
Skin: no rash
Psychiatric: well kept. interactive and cooperative
Extremities: no edema. no calf tenderness.
Course
<Philipp Barry MD - Last Filed: 09/20/24 06:08>
Orders/Labs/Results
Orders:
Orders
09/18/24 17:33
Test Result ONCE
09/18/24 17:37
Complete Blood Count/With Diff Urgent
Comprehensive Metabolic Panel Urgent
HCG, Serum Qualitative Screen Urgent
Lipase Urgent
09/18/24 18:44
0.9% Sodium Chloride 1000 ml [Nss] 1,000 ml IV BOLUS
Ketorolac [Toradol] 30 mg IV NOW STA
Ondansetron Injectable [Zofran] 4 mg IV NOW STA
Pantoprazole [Protonix IV] 40 mg IV NOW STA
09/18/24 19:17
CR Obstruct Series W/pa Chest Urgent
Comment:
Reason For Exam: abdominal pain
09/18/24 19:57
Lorazepam [Ativan] 1 mg IV NOW STA
Metoclopramide [Reglan] 10 mg IV NOW STA
09/18/24 22:17
CT Abd/pelvis W Iv Cont Urgent
Comment:
Reason For Exam: generalized pain, vomiting
0.9% Sodium Chloride 1000 ml [Nss] 1,000 ml IV BOLUS
Morphine Sulfate 4 mg IV NOW STA
09/18/24 22:18
Ondansetron Injectable [Zofran] 4 mg IV NOW STA
09/18/24 22:27
B-Hydroxybutyrate Urgent
Venous Blood Gas Urgent
%Oxygen/Room Air: 21
09/19/24
Electrocardiogram (*1) Stat
Reason for Study: Chest Pain
Comment: DONE
09/19/24 00:32
HYDROmorphone [Dilaudid] 1 mg IV NOW STA
09/19/24 01:51
Admit/Transfer Patient As Directed
Co-Sign Provider:
Level of Care: Observation services
Assign to:: Medical/Surgical
Physician / Group: hospitalist
Diagnosis: intractable Nausea and vomiting
PRN Pain Medication Management As Directed
May give lesser potent ordered pain med per pt: Yes
preference::
Protocol:: Medication orders for pain may be administered in a
manner that supports deferring to patient preference
when the pt is:
- Requesting an ordered lesser potent pain medication.
Least to most potent pain medications are defined
as: acetaminophen < NSAID < tramadol < opioids
(morphine, oxycodone, hydromorphone).
- Requesting a lesser dose of the same medication IF
ORDERED.
- Requesting a less intrusive route of administration
if both routes are prescribed by the provider (PO <
IV).
09/19/24 01:52
Code Status As Directed
Resuscitation Status: Full Code
09/19/24 02:00
Flush (0.9% Sodium Chloride) [Flush (Nss)] See Dose Instructions IV PER PROTOCOL
09/19/24 02:23
Urinalysis Reflex To Culture Urgent
Date Specimen was Collected: 09/19/24
Time Specimen was Collected: 02:22
Urine Microscopic Reflex Cult Urgent
Urine Culture Urgent
SHARONA Source: U
Specimen Description:
Date Specimen was Collected: 09/19/24
Time Specimen was Collected: 02:22
09/19/24 03:17
Acetaminophen [Tylenol] 650 mg PO Q4HPRN PRN
Bisacodyl [Dulcolax] 10 mg RECTAL [id number] PRN
Docusate W/Senna [Senokot-S] 1 tablet PO BIDPRN PRN
HYDROmorphone [Dilaudid] 0.5 mg IV Q4HPRN PRN
Ketorolac [Toradol] 10 mg IV Q6HPRN PRN
Lactated Ringers [Lr] 1,000 ml IV 100 mls/hr
Metoclopramide [Reglan] 10 mg IV Q8HPRN
Polyethylene Glycol Powder [Miralax] 17 grams PO DAILYPRN PRN
Trimethobenzamide [Tigan] 200 mg IM Q6HPRN PRN
09/19/24 03:17
Activity As Directed
Activity Level: With Assistance
Pneumatic Compression Sleeves As Directed
Type: Knee high
Vital Signs As Directed
Frequency: Per unit guidelines
Pulse Ox/spot Check [RESP] Routine
Quantity: 1
DX Deep Vein Thrombosis Video Routine
09/19/24 04:00
Dextrose 50%-Water [Dextrose 50% Syringe] 12.5 grams IV [id number] PRN
Glucagon [GlucaGen] 1 mg IM PRN PRN
09/19/24 04:21
Complete Blood Count/No Diff IN AM
Glycohemoglobin (HgbA1c) Routine
09/19/24 04:22
B-Hydroxybutyrate Routine
Comment: ADD ON
Basic Metabolic Panel IN AM
Magnesium IN AM
09/19/24 04:53
Add On- LAB Stat
Tests Added?: beta hydroxybutyrate
Add On- LAB Urgent
Tests Added?: beta hydroxybutarate
09/19/24 05:19
Diabetes Management by Nurse Practitioner Routine
Consulting Provider: Grace Olvera
Was provider already notified?: Yes
Reason for Consult: Insulin Management
Date consulting provider notified: 09/19/24
Time consulting provider notified: 07:45
Notified:: Provider
09/19/24 05:20
Transfer Patient As Directed
Transfer to: ICU
Pulse Ox/spot Check [RESP] Routine
Quantity: 1
Special Instructions: pulse oximetry on admission then every shift if on oxygen.
call if oxygen saturation less than __ %
09/19/24 05:23
Bedside Glucose Monitoring As Directed
Frequency: Q1H
09/19/24 05:25
Magnesium Sulfate 1 G/D5w [Magnesium Sulfate] 1 gm in 100 ml IV NOW
09/19/24 05:30
KCl 20 Meq/0.45 Sodchl 1000 ml [0.45% NACL with KCL 20 MEQ] 20 meq in 1,000 ml IV 150 mls/hr
Reg Insulin 100 Units/100 ml [Novolin R Insulin Infusion] 100 units in 100 ml IV PER PROTOCOL
Initial dose in units/hr, then titrate:: 6
09/19/24 07:30
Insulin Aspart Corrective Mod [Novolog Flexpen-Moderate Resistance] See Protocol SC AC
09/19/24 08:00
0.9% Sodium Chloride [Nss (Preservative Free)] 8 ml IV BID
Famotidine [Pepcid] 20 mg IV Q12
Famotidine [Pepcid] 20 mg PO BID
Lisinopril [Zestril] 10 mg PO DAILY
09/19/24 09:08
Basic Metabolic Panel Q4
Magnesium Routine
Comment: ADD
09/19/24 12:04
Basic Metabolic Panel Q4
09/19/24 15:58
Basic Metabolic Panel Q4
09/19/24 22:00
Insulin Glargine Lantus [Lantus] 18 units Subcutaneous Insulin Syringe [Syringe-Insulin] 0 unit SC HS
Abnormal Lab Results
09/18/24 09/18/24 09/18/24
17:29 17:37 20:14
WBC 12.9 H 10^3/uL
(4.8-10.8)
Hgb 10.9 L g/dL
(12.0-16.0)
Hct 33.4 L %
(37.0-47.0)
MCV 74.6 L fL
(81.0-99.0)
MCH 24.3 L pg
(27.0-31.0)
MCHC 32.6 L g/dL
(33.0-37.0)
RDW 17.1 H %
(11.5-14.5)
Absolute Neuts (auto) 11.9 H 10^3/uL
(1.4-6.5)
Absolute Lymphs (auto) 0.7 L 10^3/uL
(1.2-3.4)
Neutrophils % 92.6 H %
(42.2-75.2)
Lymphocytes % 5.1 L %
(20.5-51.1)
VBG pCO2
VBG HCO3
Carbon Dioxide
Glucose 181 H mg/dl
(70-99)
Calcium 10.3 H mg/dl
(8.4-10.2)
Magnesium
Urine Ketones
Ur Occult Blood Reflex
Urine RBC
Urine Bacteria (Reflex)
Urine Glucose
Urine Albumin (Reflex)
B-Hydroxybutyrate
POC Glucose 178 H mg/dl 222 H mg/dl
(70-99) (70-99)
09/18/24 09/19/24 09/19/24
22:27 02:23 04:09
WBC
Hgb
Hct
MCV
MCH
MCHC
RDW
Absolute Neuts (auto)
Absolute Lymphs (auto)
Neutrophils %
Lymphocytes %
VBG pCO2 52 H mmHg
(35-48)
VBG HCO3 28.1 H mmol/L
(22-27)
Carbon Dioxide
Glucose
Calcium
Magnesium
Urine Ketones 3+ A
(Negative)
Ur Occult Blood Reflex 4+ A
(Negative)
Urine RBC 3-6 A /HPF
(0-2)
Urine Bacteria (Reflex) Moderate A
(Negative)
Urine Glucose 4+ A
(Negative)
Urine Albumin (Reflex) 2+ A
(Neg - Trace)
B-Hydroxybutyrate 1.49 H mmol/L
(0.02-0.27)
POC Glucose 411 H mg/dl
(70-99)
09/19/24 09/19/24 09/19/24
04:21 04:22 07:06
WBC 25.0 H 10^3/uL
(4.8-10.8)
Hgb 11.5 L g/dL
(12.0-16.0)
Hct 35.9 L %
(37.0-47.0)
MCV 76.5 L fL
(81.0-99.0)
MCH 24.5 L pg
(27.0-31.0)
MCHC 32.0 L g/dL
(33.0-37.0)
RDW 17.4 H %
(11.5-14.5)
Absolute Neuts (auto)
Absolute Lymphs (auto)
Neutrophils %
Lymphocytes %
VBG pCO2
VBG HCO3
Carbon Dioxide 19 L mmol/L
(-30)
Glucose 467 H* mg/dl
(99)
Calcium
Magnesium 1.5 L mg/dl
(1.6-2.3)
Urine Ketones
Ur Occult Blood Reflex
Urine RBC
Urine Bacteria (Reflex)
Urine Glucose
Urine Albumin (Reflex)
B-Hydroxybutyrate 3.92 H mmol/L
(0.02-0.27)
POC Glucose 357 H mg/dl
(99)
09/19/24
08:03
WBC
Hgb
Hct
MCV
MCH
MCHC
RDW
Absolute Neuts (auto)
Absolute Lymphs (auto)
Neutrophils %
Lymphocytes %
VBG pCO2
VBG HCO3
Carbon Dioxide
Glucose
Calcium
Magnesium
Urine Ketones
Ur Occult Blood Reflex
Urine RBC
Urine Bacteria (Reflex)
Urine Glucose
Urine Albumin (Reflex)
B-Hydroxybutyrate
POC Glucose 255 H mg/dl
(70-99)
09/19/24 04:21
09/19/24 04:22
Vital Signs
Initial and Last Documented VS:
Initial Vital Signs
Temp Pulse Resp BP Pulse Ox
98.5 F 92 20 124/81 97
09/18/24 17:27 09/18/24 17:27 09/18/24 17:27 09/18/24 17:27 09/18/24 17:27
Last Documented Vital Signs
Temp Pulse Resp BP Pulse Ox
99.4 F 73 20 111/67 98
09/19/24 15:00 09/19/24 17:52 09/19/24 17:52 09/19/24 17:52 09/19/24 08:15
<Crissy Rodriguez DO - Last Filed: 09/19/24 02:46>
Orders/Labs/Results
Orders:
Orders
09/18/24 17:33
Test Result ONCE
09/18/24 17:37
Complete Blood Count/With Diff Urgent
Comprehensive Metabolic Panel Urgent
HCG, Serum Qualitative Screen Urgent
Lipase Urgent
09/18/24 18:44
0.9% Sodium Chloride 1000 ml [Nss] 1,000 ml IV BOLUS
Ketorolac [Toradol] 30 mg IV NOW STA
Ondansetron Injectable [Zofran] 4 mg IV NOW STA
Pantoprazole [Protonix IV] 40 mg IV NOW STA
09/18/24 19:17
CR Obstruct Series W/pa Chest Urgent
Comment:
Reason For Exam: abdominal pain
09/18/24 19:57
Lorazepam [Ativan] 1 mg IV NOW STA
Metoclopramide [Reglan] 10 mg IV NOW STA
09/18/24 22:17
CT Abd/pelvis W Iv Cont Urgent
Comment:
Reason For Exam: generalized pain, vomiting
0.9% Sodium Chloride 1000 ml [Nss] 1,000 ml IV BOLUS
Morphine Sulfate 4 mg IV NOW STA
09/18/24 22:18
Ondansetron Injectable [Zofran] 4 mg IV NOW STA
09/18/24 22:27
B-Hydroxybutyrate Urgent
Venous Blood Gas Urgent
%Oxygen/Room Air: 21
09/19/24
Electrocardiogram (*1) Stat
Reason for Study: Chest Pain
Comment: DONE
09/19/24 00:32
HYDROmorphone [Dilaudid] 1 mg IV NOW STA
09/19/24 01:51
Admit/Transfer Patient As Directed
Co-Sign Provider:
Level of Care: Observation services
Assign to:: Medical/Surgical
Physician / Group: hospitalist
Diagnosis: intractable Nausea and vomiting
PRN Pain Medication Management As Directed
May give lesser potent ordered pain med per pt: Yes
preference::
Protocol:: Medication orders for pain may be administered in a
manner that supports deferring to patient preference
when the pt is:
- Requesting an ordered lesser potent pain medication.
Least to most potent pain medications are defined
as: acetaminophen < NSAID < tramadol < opioids
(morphine, oxycodone, hydromorphone).
- Requesting a lesser dose of the same medication IF
ORDERED.
- Requesting a less intrusive route of administration
if both routes are prescribed by the provider (PO <
IV).
09/19/24 01:52
Code Status As Directed
Resuscitation Status: Full Code
09/19/24 02:00
Flush (0.9% Sodium Chloride) [Flush (Nss)] See Dose Instructions IV PER PROTOCOL
09/19/24 02:23
Urinalysis Reflex To Culture Urgent
Date Specimen was Collected: 09/19/24
Time Specimen was Collected: 02:22
Urine Microscopic Reflex Cult Urgent
Urine Culture Urgent
SHARONA Source: U
Specimen Description:
Date Specimen was Collected: 09/19/24
Time Specimen was Collected: 02:22
09/19/24 03:17
Acetaminophen [Tylenol] 650 mg PO Q4HPRN PRN
Bisacodyl [Dulcolax] 10 mg RECTAL [id number] PRN
Docusate W/Senna [Senokot-S] 1 tablet PO BIDPRN PRN
HYDROmorphone [Dilaudid] 0.5 mg IV Q4HPRN PRN
Ketorolac [Toradol] 10 mg IV Q6HPRN PRN
Lactated Ringers [Lr] 1,000 ml IV 100 mls/hr
Metoclopramide [Reglan] 10 mg IV Q8HPRN
Polyethylene Glycol Powder [Miralax] 17 grams PO DAILYPRN PRN
Trimethobenzamide [Tigan] 200 mg IM Q6HPRN PRN
09/19/24 03:17
Activity As Directed
Activity Level: With Assistance
Pneumatic Compression Sleeves As Directed
Type: Knee high
Vital Signs As Directed
Frequency: Per unit guidelines
Pulse Ox/spot Check [RESP] Routine
Quantity: 1
DX Deep Vein Thrombosis Video Routine
09/19/24 04:00
Dextrose 50%-Water [Dextrose 50% Syringe] 12.5 grams IV [id number] PRN
Glucagon [GlucaGen] 1 mg IM PRN PRN
09/19/24 04:21
Complete Blood Count/No Diff IN AM
Glycohemoglobin (HgbA1c) Routine
09/19/24 04:22
B-Hydroxybutyrate Routine
Comment: ADD ON
Basic Metabolic Panel IN AM
Magnesium IN AM
09/19/24 04:53
Add On- LAB Stat
Tests Added?: beta hydroxybutyrate
Add On- LAB Urgent
Tests Added?: beta hydroxybutarate
09/19/24 05:19
Diabetes Management by Nurse Practitioner Routine
Consulting Provider: Douse,Grace
Was provider already notified?: Yes
Reason for Consult: Insulin Management
Date consulting provider notified: 09/19/24
Time consulting provider notified: 07:45
Notified:: Provider
09/19/24 05:20
Transfer Patient As Directed
Transfer to: ICU
Pulse Ox/spot Check [RESP] Routine
Quantity: 1
Special Instructions: pulse oximetry on admission then every shift if on oxygen.
call if oxygen saturation less than __ %
09/19/24 05:23
Bedside Glucose Monitoring As Directed
Frequency: Q1H
09/19/24 05:25
Magnesium Sulfate 1 G/D5w [Magnesium Sulfate] 1 gm in 100 ml IV NOW
09/19/24 05:30
KCl 20 Meq/0.45 Sodchl 1000 ml [0.45% NACL with KCL 20 MEQ] 20 meq in 1,000 ml IV 150 mls/hr
Reg Insulin 100 Units/100 ml [Novolin R Insulin Infusion] 100 units in 100 ml IV PER PROTOCOL
Initial dose in units/hr, then titrate:: 6
09/19/24 07:30
Insulin Aspart Corrective Mod [Novolog Flexpen-Moderate Resistance] See Protocol SC AC
09/19/24 08:00
0.9% Sodium Chloride [Nss (Preservative Free)] 8 ml IV BID
Famotidine [Pepcid] 20 mg IV Q12
Famotidine [Pepcid] 20 mg PO BID
Lisinopril [Zestril] 10 mg PO DAILY
09/19/24 09:08
Basic Metabolic Panel Q4
Magnesium Routine
Comment: ADD
09/19/24 12:04
Basic Metabolic Panel Q4
09/19/24 15:58
Basic Metabolic Panel Q4
09/19/24 22:00
Insulin Glargine Lantus [Lantus] 18 units Subcutaneous Insulin Syringe [Syringe-Insulin] 0 unit SC HS
Abnormal Lab Results
09/18/24 09/18/24 09/18/24
17:29 17:37 20:14
WBC 12.9 H 10^3/uL
(4.8-10.8)
Hgb 10.9 L g/dL
(12.0-16.0)
Hct 33.4 L %
(37.0-47.0)
MCV 74.6 L fL
(81.0-99.0)
MCH 24.3 L pg
(27.0-31.0)
MCHC 32.6 L g/dL
(33.0-37.0)
RDW 17.1 H %
(11.5-14.5)
Absolute Neuts (auto) 11.9 H 10^3/uL
(1.4-6.5)
Absolute Lymphs (auto) 0.7 L 10^3/uL
(1.2-3.4)
Neutrophils % 92.6 H %
(42.2-75.2)
Lymphocytes % 5.1 L %
(20.5-51.1)
VBG pCO2
VBG HCO3
Carbon Dioxide
Glucose 181 H mg/dl
(70-99)
Calcium 10.3 H mg/dl
(8.4-10.2)
Magnesium
Urine Ketones
Ur Occult Blood Reflex
Urine RBC
Urine Bacteria (Reflex)
Urine Glucose
Urine Albumin (Reflex)
B-Hydroxybutyrate
POC Glucose 178 H mg/dl 222 H mg/dl
(70-99) (70-99)
09/18/24 09/19/24 09/19/24
22:27 02:23 04:09
WBC
Hgb
Hct
MCV
MCH
MCHC
RDW
Absolute Neuts (auto)
Absolute Lymphs (auto)
Neutrophils %
Lymphocytes %
VBG pCO2 52 H mmHg
(35-48)
VBG HCO3 28.1 H mmol/L
(22-27)
Carbon Dioxide
Glucose
Calcium
Magnesium
Urine Ketones 3+ A
(Negative)
Ur Occult Blood Reflex 4+ A
(Negative)
Urine RBC 3-6 A /HPF
(0-2)
Urine Bacteria (Reflex) Moderate A
(Negative)
Urine Glucose 4+ A
(Negative)
Urine Albumin (Reflex) 2+ A
(Neg - Trace)
B-Hydroxybutyrate 1.49 H mmol/L
(0.02-0.27)
POC Glucose 411 H mg/dl
(70-99)
09/19/24 09/19/24 09/19/24
04:21 04:22 07:06
WBC 25.0 H 10^3/uL
(4.8-10.8)
Hgb 11.5 L g/dL
(12.0-16.0)
Hct 35.9 L %
(37.0-47.0)
MCV 76.5 L fL
(81.0-99.0)
MCH 24.5 L pg
(27.0-31.0)
MCHC 32.0 L g/dL
(33.0-37.0)
RDW 17.4 H %
(11.5-14.5)
Absolute Neuts (auto)
Absolute Lymphs (auto)
Neutrophils %
Lymphocytes %
VBG pCO2
VBG HCO3
Carbon Dioxide 19 L mmol/L
(30)
Glucose 467 H* mg/dl
()
Calcium
Magnesium 1.5 L mg/dl
(1.6-2.3)
Urine Ketones
Ur Occult Blood Reflex
Urine RBC
Urine Bacteria (Reflex)
Urine Glucose
Urine Albumin (Reflex)
B-Hydroxybutyrate 3.92 H mmol/L
(0.02-0.27)
POC Glucose 357 H mg/dl
()
09/19/24
08:03
WBC
Hgb
Hct
MCV
MCH
MCHC
RDW
Absolute Neuts (auto)
Absolute Lymphs (auto)
Neutrophils %
Lymphocytes %
VBG pCO2
VBG HCO3
Carbon Dioxide
Glucose
Calcium
Magnesium
Urine Ketones
Ur Occult Blood Reflex
Urine RBC
Urine Bacteria (Reflex)
Urine Glucose
Urine Albumin (Reflex)
B-Hydroxybutyrate
POC Glucose 255 H mg/dl
(99)
09/19/24 04:21
09/19/24 04:22
Vital Signs
Initial and Last Documented VS:
Initial Vital Signs
Temp Pulse Resp BP Pulse Ox
98.5 F 92 20 124/81 97
09/18/24 17:27 09/18/24 17:27 09/18/24 17:27 09/18/24 17:27 09/18/24 17:27
Last Documented Vital Signs
Temp Pulse Resp BP Pulse Ox
99.4 F 73 20 111/67 98
09/19/24 15:00 09/19/24 17:52 09/19/24 17:52 09/19/24 17:52 09/19/24 08:15
<Philipp Barry MD - Last Filed: 09/20/24 06:08>
MDM/Problems Addressed
MDM/Problems Addressed:
Patient with an unremarkable workup in ED and blood sugar remained stable. Patient given treatment with improvement in symptoms. Patient without any further vomiting episodes in ED. Patient presenting symptoms, like especially in light of
recurrent nature of her symptoms, may be secondary to development of gastroparesis from longstanding diabetic history. As such, patient will be discharged home with prescription for Reglan, for symptomatic control, along with recommendation to
follow-up with her primary care physician for reevaluation. Patient will be discharged home in stable condition, to the care of her family, with recommendation to return to ED with worsening symptoms. Patient and family state that they know how to
administer extra insulin, as needed, based on glucometer readings.
<Crissy Rodriguez DO - Last Filed: 09/19/24 02:46>
*Critical Care Note
Total Time (30-74mins, 75-104mins- exclusive of procedures): Not Applicable
<Crissy Rodriguez DO - Last Filed: 09/19/24 02:46>
Update Note
Update Note:
21:40 - Called to bedside, with family concerns and questions. Patient is a 29-year-old female with history of diabetes presenting for a day of emesis after eating spaghetti. Family does note that patient has frequent bouts of nausea and vomiting,
about once a month, however has not followed outpatient for this. Vitals significant for mild hypertension. On exam, patient is resting comfortably, sleeping, no active emesis. Results reviewed with family. Mild elevation of leukocytosis,
suspected to be reactive. Patient afebrile, nontoxic. On abdominal exam, no focal tenderness. Patient's glucose is elevated, however no elevation of anion gap. Without present concern for DKA. Patient received antiemetics and fluids in the
emergency department. Will p.o. challenge with continued plan for outpatient follow-up and supportive therapy. However, did explain to family that if sugars are rising and patient is unable to tolerate p.o. at home, should return for concern of
developing DKA
22:00 -patient started to spit up. Notes that she still having upper abdominal discomfort. Given persistence of symptoms, will send for CT imaging. She is now requesting Dilaudid. She reports that the Toradol did not help. Will start with
morphine. Noted history of marijuana abuse. Possible hyperemesis
00:30 -beta hydroxybutyrate is elevated, however on review of prior beta hydroxybutyrate levels, does appear to have some chronic elevation. No metabolic acidosis. CT shows some thickening of the bladder, pending urinalysis. There is also diffuse
mesenteric edema, unclear etiology. On reassessment, patient reports that she is not feeling any better, still having emesis. Plan for admission for intractable nausea and vomiting
ED Attending Note
<Philipp Barry MD - Last Filed: 09/20/24 06:08>
-
Portions of this chart may have been created with voice recognition software.� Occasional wrong word or��sound alike� substitutions may have occurred due to the inherent limitations of voice recognition software.
Discharge Plan
Departure
Patient Disposition: Admit
Date of Disposition: 09/19/24
Time of Disposition: 00:35
Presentation/result/management discussed w/ accepting MD/DO: Hospitalist
Patient with high blood pressure during this ER visit?: Yes
Discharge Problem:
Intractable cyclical vomiting with nausea
Interventions
Interventions:
*Risk Screen - Suicide Last Done: 09/18/24 17:27
*General Assessment Last Done: 09/18/24 18:01
*Neglect/Abuse Screening Last Done: 09/18/24 18:01
*ED- Fall Risk Assessment Last Done: 09/18/24 18:01
*ED COVID-19 Vaccine History Last Done: 09/18/24 18:01
*Nursing Disposition Last Done: 09/19/24 07:48
ED- Neurological Assessment Last Done: 09/18/24 18:01
Discharge Date and Time
Discharge Date/Time: 09/19/24 07:25
[2024-09-18 20:00] VITALS: BP 151/88
[2024-09-18] MEDS: ATIVAN 1 MG IV (20:02)
[2024-09-18] MEDS: REGLAN 10 MG IV (20:03)
[2024-09-18 20:15] LABS: Glucose - Point of Care 222 mg/dl (70-99)
[2024-09-18] MEDS: MORPHINE SULFATE 4 MG IV (22:31)
[2024-09-18 22:43] VITALS: BP 146/95
[2024-09-18 22:44] LABS: Venous Blood Gas B.E. 1.5 mmol/L (-4 to +4); Venous Blood Gas HCO3 28.1 mmol/L (22-27); Venous Blood Gas pCO2 52 mmHg (35-48); Venous Blood Gas pH 7.34 (7.32-7.43); Venous Blood Gas pO2 34 mmHg (30-50)
[2024-09-18 23:06] LABS: B-Hydroxybutyrate 1.49 mmol/L (0.02-0.27)
[2024-09-18 23:42] VITALS: BP 95/52
[2024-09-19] VITALS (15 sets, daily range): BP systolic 95–162; BP diastolic 40–98; BMI 24.8
--- NOTE | 2024-09-19 01:39 | HPS.HSE ---
Family Physician
-
Family Physician: MAGY Layton
Chief Complaint
-
Nausea vomiting
History of Present Illness
Patient is a 29-year-old female with past medical history of insulin-dependent diabetes diagnosed at age 17 and hypertension presenting to the emergency department with recurrent abdominal pain with associated nausea and vomiting as well as loose
BMs.
Patient was admitted to the hospital in May with DKA. She has no recent travels and no sick contacts. States that she often gets similar symptoms once a month. She stated that she checked her blood sugar and was 200 for which she administered
insulin prior to arrival in the ED. She is denying any fevers or chills. Denies any trauma.
In the emergency department she was afebrile, blood pressure was 146/90 with a pulse of 92 and she was satting 99% on room air. Blood glucose was 180. Electrolytes were normal with normal potassium and bicarb. No anion gap. White count was 13,
hemoglobin and platelets were normal. LFTs normal. Lipase normal.
CT abdomen and pelvis without any acute interval changes. Chest x-ray shows no acute infiltrates.
Beta-hydroxybutyrate was slightly elevated at 1.4.
Medical History
Past Medical History
Past Medical History: Reports HTN
Additional Past Medical History:
Type 1 diabetes
Past Surgical History: Reports None
Social History
Tobacco: Non-smoker
Alcohol: Occasional
Drug: Marijuana
Personal:
Living: With Family
Employment: Employed
Family History
Family History: Diabetes, Hypertension and Other (Hypercholesterolemia)
Allergies / Home Medications
Allergies reflects when Allergies were last updated in [facility].
Home Medications with original date entered in [facility]
Allergy/Medication List:
Allergies
Allergy/AdvReac Type Severity Reaction Status Date / Time
nickel Allergy Rash Verified 09/18/24 17:27
Home Medications
calcium carbonate (Calcium Antacid) 400 mg (2 x 200 mg calcium (500 mg)) PO Q4HPRN PRN indigestion 30 days #30 tabs 06/15/24
ferrous sulfate 325 mg (65 mg iron) tablet (FeroSul) 325 mg PO DAILY 60 days #60 tabs 06/15/24
lisinopril 10 mg tablet 10 mg PO DAILY #30 tabs 06/15/24
pantoprazole 40 mg tablet,delayed release 40 mg PO BID 30 days #60 tabs 06/15/24
ergocalciferol (vitamin D2) 1,250 mcg (50,000 unit) capsule (Vitamin D2) 1,250 mcg PO WE 07/27/24
insulin glargine U-300 conc 300 unit/mL (3 mL) subcutaneous pen (Toujeo Max U-300 SoloStar) 20 unit SC HS 07/27/24
insulin lispro 100 unit/mL subcutaneous solution 1 - 10 sliding scale dose SC AC 07/27/24
ondansetron 4 mg disintegrating tablet 4 mg PO Q8H PRN nausea and vomiting #10 tabs 07/27/24
metoclopramide HCl 10 mg tablet (Reglan) 10 mg PO Q8HPRN PRN nausea and vomiting #14 tabs 09/18/24
Review of Systems
-
History Source: Patient
Constitutional: Reports No Symptoms
EENT: Reports No Symptoms
Respiratory: Reports No Symptoms
Cardiac: Reports No Symptoms
Abdomen/GI: Reports Abdominal Pain, Nausea and Vomiting
: Reports No Symptoms
Musculoskeletal: Reports No Symptoms
Skin: Reports No Symptoms
Neurological: Reports No Symptoms
Endocrine: Reports No Symptoms
Hematologic/Lymphatic: Reports No Symptoms
Psych: Reports No Symptoms
Physical Exam
Vital Signs
Vital Signs
Temp Pulse Resp BP Pulse Ox
98.5 F 92 20 146/95 99
09/18/24 17:27 09/18/24 17:27 09/18/24 17:27 09/18/24 22:43 09/18/24 22:45
Physical Exam
General: Well Developed, Well Nourished, Appears in Distress and Chills
HEENT: NormoCephalic and Anicteric
Respiratory: Clear
Cardiac: S1/S2 and Regular Rhythm
GI: Soft and Non Distended
Musculoskeletal: No Clubbing, No Cyanosis and No Edema
Skin: Warm and Dry
Neuro: AO x 3
Laboratory Results
-
09/18/24 17:37
09/18/24 17:37
Laboratory Results
Total Bilirubin 0.9 mg/dl (0.2-1.3) 09/18/24 17:37
AST 28 U/L (14-36) 09/18/24 17:37
ALT 18 U/L (0-35) 09/18/24 17:37
Alkaline Phosphatase 112 U/L (38-126) 09/18/24 17:37
Lipase 48 U/L (23-300) 09/18/24 17:37
Data Reviewed
-
Diagnostic Radiology: Image Personally Visualized and interpreted
CT Scan: Report Reviewed by me
Lab Data: Labs Reviewed by me
Old Records: Reviewed
Impression/Plan
-
IMPRESSION:
29 y.o female with Type I DM coming in with intractable N/V. Blood glucose 180 and no anion gap. bHB is however positive at 1.49. She appears mildly dehydrated on examination. She stated she was 'fine at the moment but I've only been up 20
minutes.' Seems symptoms have improved with meds in ED.
PLAN:
Intractable N/V - recurrent episodes, suspect CVS vs gastroenteritis. No DKA
- admit to med/surg observation
- clear liquid diet, ADAT
- continue IV hydration
- tigan prn, reglan RTC
- pain control
- famotidine bid
DM II - on 18 units long acting hs at home and sliding scale with meals
- 18 units lantus hs
- moderate sliding scale
DVT PPX- SCDs
Code status - Full Code
[2024-09-19 02:35] LABS: Urine Albumin 2+ (Neg - Trace); Urine Bilirubin Negative (Negative); Urine Character Clear (Clear); Urine Color Yellow; Urine Glucose 4+ (Negative); Urine Ketone 3+ (Negative); Urine Leukocyte Negative (Negative); Urine Nitrite Negative (Negative); Urine Occult Blood 4+ (Negative); Urine Urobilinogen Negative (Neg - 1+)
[2024-09-19 02:44] LABS: Urine Amorphous Seen; Urine Squamous Cell >30 /LPF (Few)
[2024-09-19 02:45] LABS: Urine Bacteria Moderate (Negative)
[2024-09-19] MEDS: LR 1000 IV (03:57)
[2024-09-19 04:11] LABS: Glucose - Point of Care 411 mg/dl (70-99)
[2024-09-19] MEDS: REGLAN 10 MG IV (04:29)
[2024-09-19 04:37] LABS: Hematocrit 35.9 % (37.0-47.0); Hemoglobin 11.5 g/dL (12.0-16.0); Mean Corpuscular Hgb 24.5 pg (27.0-31.0); Mean Corpuscular Volume 76.5 fL (81.0-99.0); Mean Platelet Volume 9.9 fL (7.4-10.4); Platelet Count 338 10^3/uL (130-400); Red Blood Cell Count 4.69 10^6/uL (4.20-5.40); Red Cell Dist. Width 17.4 % (11.5-14.5)
[2024-09-19] MEDS: TORADOL 10 MG IV (04:58)
[2024-09-19 05:05] LABS: Blood Urea Nitrogen 14 mg/dl (7-17); Calcium 9.3 mg/dl (8.4-10.2); Carbon Dioxide 19 mmol/L (22-30); Chloride 98 mmol/L (98-107); Estimated Creatinine Clearance 92 ml/min; Glucose 467 mg/dl (70-99); Magnesium 1.5 mg/dl (1.6-2.3); Potassium 4.8 mmol/L (3.5-5.1); Sodium 136 mmol/L (135-145); eGFR > 60.00
[2024-09-19 05:17] LABS: B-Hydroxybutyrate 3.92 mmol/L (0.02-0.27)
[2024-09-19] MEDS: MAGNESIUM SULFATE 100 IV (05:39)
[2024-09-19] MEDS: 0.45% NACL with KCL 20 MEQ 1000 IV (05:39)
[2024-09-19] MEDS: NOVOLIN R INSULIN INFUSION 100 IV (06:17)
[2024-09-19 07:08] LABS: Glucose - Point of Care 357 mg/dl (70-99)
--- NOTE | 2024-09-19 07:55 | PN.DE.MGMTRT ---
Insulin Management
- -
09/19/2024: Diabetes Management Consult
29 year old female with PMH: T1DM, DKA, Anxiety and Gastritis. Patient admitted with recurrent abdominal pain associated w N/V/D. Glucose on admission was 181, trended up to 467. Blood Sugar at home was 300s, pt had treated herself with a dose of
NovoLog right before coming to the ED.
Patient known to Diabetes team from previous admission with DKA. Prior to admission patient was taking Tresiba 20 units @ hS and SS NovoLog 1-10 units AC.
A1C pending, last one was 9.1% on 06/11/2024. Cr 0.9, eGFR >60.
Patient is awake alert and oriented able to discuss diabetes management. Denies N/V/D, states she feels well and at baseline.
GAP has closed, will plan to transition to SQ insulin after noon BMP has been resulted.
Pt has been started on clear liquid diet. Give Lantus 12 units @ 13:00, turn insulin drip off @15:00, then start HS Lantus 20 units and AC NovoLog 5 units and moderate corrective with meals. Discussed with nurse.
Will update A1C, none was obtained on admission.
Pt reports she has a glucose monitor with supplies and enough insulin at home.
Diabetes History
- -
Type of Diabetes: 1
Pre-Admission Diabetes Regimen
09/18/24 09/19/24
17:37 04:22
Creatinine 0.7 0.9
Insulin Pump Settings
IP Diabetes Regimen
09/18/24 09/18/24 09/18/24
17:29 17:37 20:14
Glucose 181 H
POC Glucose 178 H 222 H
09/19/24 09/19/24 09/19/24
04:09 04:22 07:06
Glucose 467 H*
POC Glucose 411 H 357 H
Patient Education
[2024-09-19 08:15] LABS: Glucose - Point of Care 255 mg/dl (70-99)
--- NOTE | 2024-09-19 08:17 | CON.INTV ---
Consultation
Consultation Request
Date/Time Consultation Requested: 09/19/24-10 a.m.
Date/Time Consultation Performed: 09/19/24-10:15 AM
Requesting Provider: hospitalist
Performing Provider: Dr. Boswell
Reason for Consultation: DKA/critical care management
Medical History
-
Chief Complaint: DKA
History of Present Illness:
29-year-old insulin-dependent diabetic female presented with nausea, abdominal pain, dry mouth, increased thirst, urinary frequency, noted to be in DKA requiring ICU admission-drive in theater attendant consulted for DKA/critical care management 09/19/24.
Patient states that she has some abdominal pain, some nausea, weakness, thirst. She denies any shortness of breath, chest pain, productive cough, open lower extremity swelling, or focal weakness.
Past Medical History
Past Medical History: None (Diabetes-type I since age 18. Cyclical vomiting. Marijuana use. Anemia-iron deficiency. Hypertension. Anxiety. Ovarian cyst rupture 12/2020. Heavy menses. Adenoidectomy age 5.)
Social History
Tobacco: Non-smoker
Alcohol: Occasional
Drug: Marijuana ( smokes marijuana jimenez)
Personal: Partner
Occupational Exposures: no known asbestos exposure
Environmental Exposures: no known tuberculosis exposure
Family History
Family History: Reviewed & Not Pertinent
Allergies / Home Medications
Allergies
Allergy/AdvReac Type Severity Reaction Status Date / Time
nickel Allergy Rash Verified 09/18/24 17:27
Home Medications
�Medication �Instructions �Recorded �Confirmed �Last Taken �Type
calcium carbonate (Calcium Antacid) 400 mg (2 x 200 mg calcium (500 06/15/24 07/27/24 Unknown Rx
mg)) PO Q4HPRN PRN indigestion 30
days #30 tabs
ferrous sulfate 325 mg (65 mg 325 mg PO DAILY 60 days #60 tabs 06/15/24 07/27/24 Unknown Rx
iron) tablet (FeroSul)
lisinopril 10 mg tablet 10 mg PO DAILY #30 tabs 25 07/27/24 Unknown Rx
pantoprazole 40 mg tablet,delayed 40 mg PO BID 30 days #60 tabs 06/15/24 07/27/24 Unknown Rx
release
ergocalciferol (vitamin D2) 1,250 1,250 mcg PO WE 07/27/24 07/27/24 Unknown History
mcg (50,000 unit) capsule (Vitamin
D2)
insulin glargine U-300 conc 300 20 unit SC HS 07/27/24 07/27/24 Unknown History
unit/mL (3 mL) subcutaneous pen
(Toujeo Max U-300 SoloStar)
insulin lispro 100 unit/mL 1 - 10 sliding scale dose SC AC 07/27/24 07/27/24 Unknown History
subcutaneous solution
ondansetron 4 mg disintegrating 4 mg PO Q8H PRN nausea and 07/27/24 Unknown Rx
tablet vomiting #10 tabs
metoclopramide HCl 10 mg tablet 10 mg PO Q8HPRN PRN nausea and 09/18/24 Unknown Rx
(Reglan) vomiting #14 tabs
Review of Systems
-
Unable to Obtain full review of systems at this time due to: Other ( per HPI)
Vitals / Labs / Diagnostic Testing
Vital Signs
Temp Pulse Resp BP Pulse Ox
98.5 F 85 18 117/79 100
09/18/24 17:27 09/19/24 08:06 09/19/24 08:06 09/19/24 07:30 09/19/24 08:06
Lab Data
09/19/24 04:21
Diagnostic Testing:
Physical Exam
-
Exam:
well-nourished and well-developed in no apparent distress
HEENT-atraumatic, normocephalic
Neck-supple, no JVD, no bruit
Heart-regular rate and rhythm-no murmurs, rubs or gallops
Chest-clear to auscultation, no wheezes, crackles
Back-no tenderness
Abdomen soft, nondistended, mild left upper quadrant tenderness, no rebound or guarding
Extremities-no cyanosis, clubbing, edema and good peripheral pulses
Integument-intact, no rashes, lesions or ecchymosis
Neurology-alert and oriented, nonfocal motor and sensory exam
Assessment
-
29-year-old insulin-dependent diabetic female presented with nausea, abdominal pain, dry mouth, increased thirst, urinary frequency, noted to be in DKA requiring ICU admission-drive in theater attendant consulted for DKA/critical care management 09/19/24.
Diabetic ketoacidosis
Initial blood sugar- 467
Anion gap-19
VBG 411 point 10/18/2024-52/34/7.34
Leukocytosis
Bkoxfs-rpefnixpbu-kvsmibbbkp 11.5
Anion gap metabolic acidosis
Leukocytosis
Abdominal pain
Hypomagnesemia
Conditions present prior to admission:
Diabetes-type I since age 18.
Cyclical vomiting.
Marijuana use.
Anemia-iron deficiency.
Hypertension.
Anxiety.
Ovarian cyst rupture 12/2020.
Heavy menses.
Adenoidectomy age 5.
Plan
Patient will be admitted to medical intensive care unit for close monitoring
Supplemental oxygen as needed
Incentive spirometry
Aspiration precautions
Monitor blood sugar
Monitor anion gap
Insulin drip
Check A1c if not done in the last 3 months
Diabetic nurse practitioner consultation
Intravenous fluid resuscitation
Monitor potassium closely and replace appropriately
Monitor renal function
If renal function does not improve with fluid hydration then nephrology consultation
Tylenol as needed for pain
Check cultures
Serial abdominal exam
CT abdomen and pelvis--summarized below
Follow leukocytosis
Marijuana smoking cessation counseling ongoing
DVT prophylaxis recommended
Early nutrition
Early mobilization
If able to be weaned off insulin drip then could be transferred out of ICU-call pulmonary if respiratory issues arise
CT chest noted to have incidental small pulmonary nodule 06/2024-recommend follow-up CT in 1 year-can be done through primary office
Critical care statement: A total of 55 minutes of critical care time was provided for this patient today. This includes management of unstable vital signs, insulin drip management, evaluation of the patient at bedside, reviewing the patient's
pertinent medical records including radiographs, microbiology, laboratory evaluations, and discussion with primary team, consultants, charge nurse, and critical care nursing.
Diagnostic data:
Chest x-ray 08/16/2021-NAD
Chest x-ray 04/11/2024-NAD
Chest x-ray 05/23/1906/11/2024-NAD
CT abdomen and pelvis 01/30/2024-diffuse wall thickening of the urinary bladder may be related to nondistention or cystitis, no intestinal obstruction, bowel inflammation, nephrolithiasis, hydronephrosis, cholecystitis or abscess formation
CT abdomen and pelvis 06/12/2024-06/12/24-4 mm noncalcified right upper lobe pulmonary nodule
CT abdomen and pelvis/-no active pulmonary disease, no free air, small amount of pelvic free fluid, right adnexal cyst measuring 2.4 cm, mild wall thickening of urinary bladder, lung bases are clear
Data Reviewed
-
EKG: Report reviewed by me
Radiology: Report reviewed by me
CT Scan: Report reviewed by me
Medical Tests (Nuc Med, Echo etc): Report reviewed by me
Labs: Labs reviewed by me
Critical Care Time (in minutes): 55
--- NOTE | 2024-09-19 08:18 | CON.INTV ---
Documented by User: Virginie Bhatti DO, Resident 09/19/24 11:01
Consultation
Consultation Request
Date/Time Consultation Requested: 09/19/2024
Date/Time Consultation Performed: 09/19/2024
Medical History
-
Chief Complaint: DKA
History of Present Illness:
Pt is a 29yo F [facility] IDDM diagnosed at age 17 who presented to [facility] ED for recurrent abdominal pain associated w N/V/D. Her BS at home was 300 and she administered insulin. Pt reports she experiences similar sx every month. She was last admitted in
May for DKA. Denies recent change in medications or diet. CT abdomen/pelvis w/o changes. CXR negative for infiltrates. B-hydroxybutyrate elevated at 3.9. Currently on 4u insulin/hr
Past Medical History
Past Medical History: HTN, IDDM, Psychiatric (anxiety) and Other (gastritis)
Past Surgical History: Other (adenoidectomy)
Social History
Tobacco: Non-smoker
Alcohol: Occasional
Drug: Marijuana (daily)
Personal:
Living: With Family
Employment: Employed
Family History
Family History: Diabetes
Allergies / Home Medications
Allergies
Allergy/AdvReac Type Severity Reaction Status Date / Time
nickel Allergy Rash Verified 09/18/24 17:27
Home Medications
�Medication �Instructions �Recorded �Confirmed �Last Taken �Type
calcium carbonate (Calcium Antacid) 400 mg (2 x 200 mg calcium (500 06/15/24 07/27/24 Unknown Rx
mg)) PO Q4HPRN PRN indigestion 30
days #30 tabs
ferrous sulfate 325 mg (65 mg 325 mg PO DAILY 60 days #60 tabs 06/15/24 07/27/24 Unknown Rx
iron) tablet (FeroSul)
lisinopril 10 mg tablet 10 mg PO DAILY #30 tabs 06/15/24 07/27/24 Unknown Rx
pantoprazole 40 mg tablet,delayed 40 mg PO BID 30 days #60 tabs 06/15/24 07/27/24 Unknown Rx
release
ergocalciferol (vitamin D2) 1,250 1,250 mcg PO WE 07/27/24 07/27/24 Unknown History
mcg (50,000 unit) capsule (Vitamin
D2)
insulin glargine U-300 conc 300 20 unit SC HS 07/27/24 07/27/24 Unknown History
unit/mL (3 mL) subcutaneous pen
(Toujeo Max U-300 SoloStar)
insulin lispro 100 unit/mL 1 - 10 sliding scale dose SC AC 07/27/24 07/27/24 Unknown History
subcutaneous solution
ondansetron 4 mg disintegrating 4 mg PO Q8H PRN nausea and 07/27/24 Unknown Rx
tablet vomiting #10 tabs
metoclopramide HCl 10 mg tablet 10 mg PO Q8HPRN PRN nausea and 09/18/24 Unknown Rx
(Reglan) vomiting #14 tabs
Review of Systems
-
History Source: Patient
Constitutional: No Symptoms
Respiratory: No Symptoms
Cardiac: No Symptoms
Abdomen/GI: No Symptoms
: No Symptoms
Musculoskeletal: No Symptoms
Neuro: No Symptoms
Endocrine: No Symptoms
Hematologic/Lymphatic: No Symptoms
Vitals / Labs / Diagnostic Testing
Vital Signs
Temp Pulse Resp BP Pulse Ox
98.5 F 85 18 117/79 100
09/18/24 17:27 09/19/24 08:06 09/19/24 08:06 09/19/24 07:30 09/19/24 08:06
Lab Data
09/19/24 04:21
Diagnostic Testing:
Physical Exam
-
HEENT: Normocephalic and Anicteric
Cardiovascular: S1/S2 and Regular Rhythm
Respiratory: Clear and Non-Labored Respirations
GI: Soft, Non Distended, Non Tender and Normal Bowel Sounds
Neurology: Awake, AO x 3 and No Motor Deficits
Skin: Warm and Dry
General: Comfortable
Assessment
-
Assessment:
29yo F [facility] IDDM diagnosed at age 17 who presented to [facility] ED for recurrent abdominal pain associated w N/V/D. Her BS at home was 300 and she administered insulin. Pt reports she experiences similar sx every month. Denies recent change in medications
or diet.B-hydroxybutyrate elevated at 3.9. In the ICU for insulin infusion for DKA.
Plan:
DKA
AGMA - resolved
- insulin infusion
- bedside glucose monitoring
- IVF
- AG now 11
- potassium repletion
Intractable N/V
Elongated QT interval
- clear liquid diet
- IVF
- tigan prn
- pain control
- famotidine BID
Microcytic anemia
- stable
- repeat cbc
HTN
- resume home lisinopril
Marijuana use disorder
- smokes daily
- understand marijuana can trigger her GI complaints
Diet: clear liquid
DVT ppx: lovenox
Code status: Full Code

Documented by User: Alexis Boswell MD 09/19/24 12:44
Assessment
-
Assessment:
29yo F [facility] IDDM diagnosed at age 17 who presented to [facility] ED for recurrent abdominal pain associated w N/V/D. Her BS at home was 300 and she administered insulin. Pt reports she experiences similar sx every month. Denies recent change in medications
or diet.B-hydroxybutyrate elevated at 3.9. In the ICU for insulin infusion for DKA.
Plan:
DKA
AGMA - resolved
- insulin infusion
- bedside glucose monitoring
- IVF
- AG now 11
- potassium repletion
Intractable N/V
Elongated QT interval
- clear liquid diet
- IVF
- tigan prn
- pain control
- famotidine BID
Microcytic anemia
- stable
- repeat cbc
HTN
- resume home lisinopril
Marijuana use disorder
- smokes daily
- understand marijuana can trigger her GI complaints
Diet: clear liquid
DVT ppx: lovenox
Code status: Full Code
I reviewed this patients case independently and in conjunction with the resident. I personally examined the patient. Patient's complex medical history, laboratory evaluations, events over the last 24 hours, radiographs, microbiological data were
all personally reviewed.
Agree with documented assessment and plan
Alexis Boswell MD, FCCP, DABMANISHA
[2024-09-19] MEDS: DILAUDID 0.5 MG IV (08:22)
--- NOTE | 2024-09-19 09:03 | W.PN.HOSP.TC ---
Addendum entered and electronically signed by Burt Rossi DO 09/19/24 17:21:
Transitioned off insulin drip. AG closed.
Patient requesting discharge.
Resume home insulin regimen.
Recommend abstaining from further marijuana use. Follow-up closely with PCP.
Original Note:
Today's Communication/Plan
-
Continue IV insulin
Trend BMP, glucose
Etl Architect consult
Diabetes COAT FELLER consult
Hemoglobin A1c
Assessment / Plan
Assessment / Plan
Gen-AAOx3, NAD
HEENT-NC, AT, anicteric, clear oral mm
Neck-supple
CV-reg, no M, +S1/S2
Lungs-clear B/L
Abd-soft, NT, ND
Ext-no edema
Musculoskeletal-no cyanosis, clubbing
Skin-warm and dry
Neuro-grossly non-focal
Psych-calm, cooperative
DM1 with DKA -suspect trigger is daily marijuana use with resultant nausea and vomiting. Hemoglobin A1c 9.1% in May. She also has failed to follow-up with her continuous glucose monitor device and has not been using it since June. Is in
the process of transitioning from her old insulin pump to a new pump and has therefore been using Toujeo 18 units at bedtime and NovoLog sliding scale only. States she used her Toujeo last night. Heart Coordinator is located in [facility].
She was hospitalized last time in our facility in May of this year for DKA.
Currently on insulin infusion 4 units/h. Last Accu-Chek 255 this morning. Will trend BMP. Diabetes COAT FELLER consulted.
Leukocytosis noted. Looks nontoxic. Doubt sepsis. Suspect stress response, leukemoid reaction.
CT abdomen and pelvis with small amount of pelvic free fluid. Right adnexal cyst measuring 2.4 cm. Mild wall thickening of the urinary bladder, may be related to nondistention or cystitis. She has no UTI symptoms. She did note blood in her
underwear, unclear if it is GI or related. Denies melena, hematochezia, hematuria.
Marijuana use disorder -she smokes daily. She understands that marijuana use can trigger her GI complaints including vomiting, leading to recurrent DKA. Suspect she has hyperemesis syndrome due to marijuana use. It is unclear why she continues to
smoke.
Essential hypertension -resume lisinopril.
Chronic microcytic anemia -hemoglobin at baseline. Needs workup as an outpatient.
Full code
Anticipated Discharge: 24 - 48 hours
Subjective/Interval History
-
Date of Service: September 19, 2024
Patient seen and examined. Feeling better. No complaints.
Objective Data
-
Labs:
Laboratory Results
09/19/24 09/19/24 09/19/24
04:21 04:22 08:00
WBC 25.0 H
Hgb 11.5 L
Hct 35.9 L
Plt Count 338
Sodium 136 Pending
Potassium 4.8 Pending
Chloride 98 Pending
Carbon Dioxide 19 L Pending
BUN 14 Pending
Creatinine 0.9 Pending
Glucose 467 H* Pending
Calcium 9.3 Pending
09/19/24 09/19/24 09/19/24
12:00 16:00 20:00
WBC
Hgb
Hct
Plt Count
Sodium Pending Pending Pending
Potassium Pending Pending Pending
Chloride Pending Pending Pending
Carbon Dioxide Pending Pending Pending
BUN Pending Pending Pending
Creatinine Pending Pending Pending
Glucose Pending Pending Pending
Calcium Pending Pending Pending
Vital Signs:
Vital Signs
Temp Pulse Resp BP Pulse Ox
98.4 F 85 18 117/79 100
09/19/24 08:15 09/19/24 08:06 09/19/24 08:06 09/19/24 07:30 09/19/24 08:06
Review of Systems
-
History Source: Patient
All other systems: Reviewed and negative
[2024-09-19] MEDS: PEPCID 20 MG IV (09:05)
[2024-09-19] MEDS: NSS (PRESERVATIVE FREE) 8 ML IV (09:05)
[2024-09-19] MEDS: ZESTRIL 10 MG PO (09:05)
[2024-09-19 09:17] LABS: Glucose - Point of Care 176 mg/dl (70-99)
[2024-09-19] MEDS: D5/0.45%NSS with KCL 20 MEQ 1000 IV (09:38)
--- NOTE | 2024-09-19 10:00 | PTCARENOTE ---
Pt admitted to ICU bed 3367 from ED. Pt AAOx3. Sinus rhythm to sinus tach. SpO2 100% on RA. Lungs CTA. Intermittent n/v and abdominal pain. Insulin gtt and fluid per order.
[2024-09-19 10:06] LABS: Blood Urea Nitrogen 15 mg/dl (7-17); Calcium 8.7 mg/dl (8.4-10.2); Carbon Dioxide 22 mmol/L (22-30); Chloride 103 mmol/L (98-107); Estimated Creatinine Clearance 90 ml/min; Glucose 165 mg/dl (70-99); Sodium 136 mmol/L (135-145); eGFR > 60.00
[2024-09-19 10:14] LABS: Glucose - Point of Care 140 mg/dl (70-99)
[2024-09-19 10:27] LABS: Magnesium 1.9 mg/dl (1.6-2.3)
[2024-09-19 11:16] LABS: Glucose - Point of Care 180 mg/dl (70-99)
--- NOTE | 2024-09-19 11:27 | CM ---
Patient seen at bedside in ICU. Patient states that she lives with her in a one story home. Patient stated she has her insulin and strips no other DME. Patient stated that her PCP is MAGY Duque and she uses the [facility] in [place]. Patient
plan is for discharge home with no needs anticipated. CM will continue to follow for discharge planning needs.
Plan; home with no needs anticipated.
[2024-09-19 12:15] LABS: Glucose - Point of Care 196 mg/dl (70-99)
[2024-09-19 12:45] LABS: Blood Urea Nitrogen 12 mg/dl (7-17); Calcium 8.5 mg/dl (8.4-10.2); Carbon Dioxide 24 mmol/L (22-30); Chloride 102 mmol/L (98-107); Estimated Creatinine Clearance 103 ml/min; Glucose 186 mg/dl (70-99); Potassium 4.2 mmol/L (3.5-5.1); Sodium 132 mmol/L (135-145); eGFR > 60.00
[2024-09-19 13:13] LABS: Glucose - Point of Care 187 mg/dl (70-99)
--- NOTE | 2024-09-19 13:13 | PTCARENOTE ---
Pt reports feeling better. No vomiting or diarrhea since admitted to unit. PRN Dilaudid given x1 for abdominal pain this am. Pt reports feeling hungry. Gap closed. Will transition off insulin gtt per order. All other assessments unchanged.
[2024-09-19] MEDS: NOVOLIN N vial 0.12 UNITS SC (14:03)
[2024-09-19] MEDS: NOVOLOG FLEXPEN-MODERATE RESISTANCE 1 UNITS SC (14:04)
[2024-09-19 14:14] LABS: Glucose - Point of Care 178 mg/dl (70-99)
[2024-09-19 15:08] LABS: Glucose - Point of Care 164 mg/dl (70-99)
[2024-09-19 16:31] LABS: Blood Urea Nitrogen 10 mg/dl (7-17); Calcium 8.7 mg/dl (8.4-10.2); Carbon Dioxide 23 mmol/L (22-30); Chloride 101 mmol/L (98-107); Estimated Creatinine Clearance 103 ml/min; Glucose 147 mg/dl (70-99); Sodium 132 mmol/L (135-145); eGFR > 60.00
--- NOTE | 2024-09-19 17:25 | W.DS.TRANS ---
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
-
Discharge Instructions:
Discharge Diagnosis/Procedures DKA, cannabis hyperemesis syndrome
Diet Diabetic, Carb Controlled
Activity As tolerated
Driving Restrictions As prior to admission
Bathing Restrictions None
Instructions:
Stand-Alone Forms:
Changes to Home Medications: No
Discharge Medications:
DC Medications w/original date entered in [facility]
calcium carbonate (Calcium Antacid) 400 mg (2 x 200 mg calcium (500 mg)) PO Q4HPRN PRN indigestion 30 days #30 tabs 06/15/24
ferrous sulfate 325 mg (65 mg iron) tablet (FeroSul) 325 mg PO DAILY 60 days #60 tabs 06/15/24
lisinopril 10 mg tablet 10 mg PO DAILY #30 tabs 06/15/24
pantoprazole 40 mg tablet,delayed release 40 mg PO BID 30 days #60 tabs 06/15/24
ergocalciferol (vitamin D2) 1,250 mcg (50,000 unit) capsule (Vitamin D2) 1,250 mcg PO WE 07/27/24
insulin glargine U-300 conc 300 unit/mL (3 mL) subcutaneous pen (Toujeo Max U-300 SoloStar) 20 unit SC HS 07/27/24
insulin lispro 100 unit/mL subcutaneous solution 1 - 10 sliding scale dose SC AC 07/27/24
ondansetron 4 mg disintegrating tablet 4 mg PO Q8H PRN nausea and vomiting #10 tabs 07/27/24
metoclopramide HCl 10 mg tablet (Reglan) 10 mg PO Q8HPRN PRN nausea and vomiting #14 tabs 09/18/24
Home Medication Changes
Pending Results: No
--- NOTE | 2024-09-19 18:43 | PTCARENOTE ---
pt discharged to home with . Reviewed all discharge instructions and meds. Dinner time insulin not given. Pt stated she would take with meal when she eats at home. IV and tele monitor d/c'd.
[2024-09-20 08:54] LABS: Glycohemoglobin (HgbA1c) 10.9 % (4.0-5.6)
== END 2024-09-19 18:14 | disposition home or self-care (01) | DRG 639 ==
LOC: ICU 08:40
PROVIDERS: Emergency Medicine; ADMITTING PHYSICIAN Internal Medicine; ATTENDING PHYSICIAN Hospitalist; CONSULT PHYSICIAN Internal Medicine Critical Care Medicine; EMERGENCY PHYSICIAN Student in an Organized Health Care Education/Training Program; FAMILY PHYSICIAN Nurse Practitioner Family
DX: E10.10 Type 1 diabetes mellitus with ketoacidosis without coma (principal); R11.2 Nausea with vomiting, unspecified; F12.90 Cannabis use, unspecified, uncomplicated; D50.9 Iron deficiency anemia, unspecified; I10 Essential (primary) hypertension; Z79.4 Long term (current) use of insulin; D72.829 Elevated white blood cell count, unspecified; E83.42 Hypomagnesemia; E86.0 Dehydration; F41.9 Anxiety disorder, unspecified; Z96.41 Presence of insulin pump (external) (internal)
CPT/HCPCS: 74022; 74177; 80048; 80053; 81003; 81015; 82010; 82805; 82962; 83036; 83690; 83735; 84703; 85025; 85027; 87086; 93005; J3480; Q9967

== ENCOUNTER 2024-10-18 17:02 | Emergency (ER) | payer BC, SELFPAY ==
[2024-10-18 17:13] VITALS: BP 106/67
[2024-10-18 17:40] LABS: Venous Blood Gas B.E. 5.3 mmol/L (-4 to +4); Venous Blood Gas HCO3 29.9 mmol/L (22-27); Venous Blood Gas O2 Sat % 92.8 %; Venous Blood Gas pCO2 43 mmHg (35-48); Venous Blood Gas pH 7.45 (7.32-7.43); Venous Blood Gas pO2 60 mmHg (30-50)
[2024-10-18 17:41] LABS: % Basophils 0.2 % (0-2); % Eosinophils 0.1 % (0-6); % Immature Granulocytes 0.5 % (0-0.5); % Monocytes 5.7 % (1.7-9.3); % Neutrophils 82.5 % (42.2-75.2); Absolute Immature Granulocytes 0.1 10^3/uL (0-0.05); Absolute Lymphocytes 1.7 10^3/uL (1.2-3.4); Absolute Monocytes 0.9 10^3/uL (0.1-0.6); Absolute Neutrophils 12.8 10^3/uL (1.4-6.5); Hematocrit 35.7 % (37.0-47.0); Hemoglobin 11.2 g/dL (12.0-16.0); Mean Corp Hgb Conc. 31.4 g/dL (33.0-37.0); Mean Corpuscular Hgb 23.5 pg (27.0-31.0); Mean Platelet Volume 9.6 fL (7.4-10.4); Nucleated Red Blood Cells % 0 %; Platelet Count 351 10^3/uL (130-400); Red Blood Cell Count 4.76 10^6/uL (4.20-5.40); Red Cell Dist. Width 17.1 % (11.5-14.5); White Blood Cell Count 15.5 10^3/uL (4.8-10.8)
[2024-10-18 17:58] LABS: AST (SGOT) 27 U/L (14-36); Albumin 4.9 g/dl (3.5-5.0); Alkaline Phosphatase 90 U/L (38-126); Blood Urea Nitrogen 14 mg/dl (7-17); Calcium 10.4 mg/dl (8.4-10.2); Carbon Dioxide 27 mmol/L (22-30); Chloride 98 mmol/L (98-107); Glucose 196 mg/dl (70-99); Potassium 3.8 mmol/L (3.5-5.1); Sodium 139 mmol/L (135-145); Total Bilirubin 1.1 mg/dl (0.2-1.3); Total Protein 8.2 g/dl (6.3-8.2); eGFR > 60.00
[2024-10-18 18:05] LABS: B-Hydroxybutyrate 0.74 mmol/L (0.02-0.27)
[2024-10-18 18:41] LABS: ALT (SGPT) 25 U/L (0-35)
[2024-10-18 19:06] VITALS: BP 117/69
--- NOTE | 2024-10-18 19:59 | ED.GENMED ---
History of Present Illness
General
Chief Complaint: Blood Sugar Problem
Source: patient
Exam Limitations: none
Time Seen by Provider: 10/18/24 19:57
Nursing documentation reviewed up to this point in time: agreed with
History of Present Illness
History of Present Illness:
29-year-old female with history of insulin-dependent diabetes who presents to the emergency department for evaluation of hyperglycemia. Patient has frequent visits due to hyperglycemia/DKA, typically in the setting of GI symptoms. She currently
sees Dr. Marcela Maki for endocrinology. She had been on insulin pump but is currently on insulin injections�she takes Lantus 18 units nightly with a sliding scale insulin 1-10 of Humalog. She has not missed any doses, took Lantus last night
as usual. She says that around 1 PM yesterday she began having some nausea and vomiting which has been ongoing x 24 hours. She says that earlier today she checked her blood sugar and it was elevated over 200 and so she took her normal dose of
insulin with improvement to around 120. She says she took a nap and when she woke up from her nap her blood sugar was over 500 despite not having anything to eat. She gave her 16 units of insulin�this was around 3 PM�and ultimately came to the
emergency room. Since arrival here her blood sugar has greatly improved and she says she is feeling much better. She denies any recent adjustments to her insulin regimen but says that she has had issues with erratic blood glucose measurements. We
did check her glucometer and it is functional and correlates well with ER glucometer.
Past History
Past History
ED Past Medical History: HTN, IDDM, Psychiatric (Anxiety) and Other (Gastritis)
ED Past Surgical History: Other (Adenoidectomy)
Social History
Tobacco: Non-smoker
Alcohol: Occasional
Drug: Marijuana (daily)
Personal:
Living: with family
Employment: Employed
Family History
Family History: Diabetes
Review of Systems
Review of Systems
All Other Systems: ROS reviewed and negative except as documented in HPI and ROS
ABD/GI: Reports nausea
Phy Exam
Physical Exam
Physical Exam:
General: Well appearing and non-toxic
HEENT: protecting airway
Neck: appears supple
CV: No evidence of cyanosis
Resp: No accessory muscle use
Abd: Non-distended
Extremities: No deformities
Neuro: Alert
Psych: Normal affect
Skin: Intact
Scores
Heart Failure Risk
Heart Failure Risk Score: Not Applicable
Heart Score for Chest Pain Patients
STEMI patient?: Not applicable
Withdrawal Assessment of Alcohol
Withdrawal Assessment Completed?: Not applicable
Course
Orders/Labs/Results
Orders:
Orders
10/18/24 17:21
B-Hydroxybutyrate Urgent
Complete Blood Count/With Diff Urgent
Comprehensive Metabolic Panel Urgent
Venous Blood Gas Urgent
%Oxygen/Room Air: RA
10/18/24 19:58
0.9% Sodium Chloride 1000 ml [Nss] 1,000 ml IV BOLUS
10/18/24 19:59
Bedside Glucose- Treatment ONCE
10/18/24 20:00
Drug Screen, Urine [Urine Drug Abuse Screen] Urgent
Date Specimen was Collected: 10/18/24
Time Specimen was Collected: 20:03
Urinalysis Reflex To Culture Urgent
Date Specimen was Collected: 10/18/24
Time Specimen was Collected: 20:03
Abnormal Lab Results
10/18/24
17:21
WBC 15.5 H 10^3/uL
(4.8-10.8)
Hgb 11.2 L g/dL
(12.0-16.0)
Hct 35.7 L %
(37.0-47.0)
MCV 75.0 L fL
(81.0-99.0)
MCH 23.5 L pg
(27.0-31.0)
MCHC 31.4 L g/dL
(33.0-37.0)
RDW 17.1 H %
(11.5-14.5)
Abs Immat Gran (auto) 0.1 H 10^3/uL
(0-0.05)
Absolute Neuts (auto) 12.8 H 10^3/uL
(1.4-6.5)
Absolute Monos (auto) 0.9 H 10^3/uL
(0.1-0.6)
Neutrophils % 82.5 H %
(42.2-75.2)
Lymphocytes % 11.0 L %
(20.5-51.1)
VBG pH 7.45 H
(7.32-7.43)
VBG pO2 60 H mmHg
(30-50)
VBG HCO3 29.9 H mmol/L
(22-27)
Glucose 196 H mg/dl
(70-99)
Calcium 10.4 H mg/dl
(8.4-10.2)
B-Hydroxybutyrate 0.74 H mmol/L
(0.02-0.27)
10/18/24 17:21
10/18/24 17:21
Vital Signs
Initial and Last Documented VS:
Initial Vital Signs
Temp Pulse Resp BP Pulse Ox
37.0 C 99 18 106/67 96
10/18/24 17:13 10/18/24 17:13 10/18/24 17:13 10/18/24 17:13 10/18/24 17:13
Last Documented Vital Signs
Temp Pulse Resp BP Pulse Ox
37.0 C 87 16 117/69 99
10/18/24 17:13 10/18/24 19:06 10/18/24 19:06 10/18/24 19:06 10/18/24 19:06
MDM/Problems Addressed
Differential Diagnosis Includes:
Hyperglycemia, DKA
MDM/Problems Addressed:
29-year-old female presents with hyperglycemia and variable glucose over the past 24 hours. Glucose reportedly over 500 today despite insulin compliance; she gave her/16 units of insulin and came to the ER. Her initial glucose on blood draw was
196, repeat Accu-Chek 3 hours later down to 70 without intervention. She is feeling much better. I called patient's fermentation engineer to discuss her variable glucose�it sounds like plan was to try and transition her back onto his insulin pump that
has some AI capabilities to better regulate her sugars. He indicated that she should call the office to help to arrange this. In the meantime recommended splitting her Lantus�she currently takes 18 units nightly he recommended starting her on 10
units in the morning and 10 units in the evening which may help regulate these swings in glucose. Discussed with patient and she feels comfortable with this. Stable for discharge.
Chronic conditions affecting care:
Insulin-dependent diabetes
*Pulse Oximetry
Patient hypoxic: no
*Critical Care Note
Total Time (30-74mins, 75-104mins- exclusive of procedures): Not Applicable
Data Reviewed
Source: patient, records and family
Patient Management
Discussion with other providers: Well Puller (Discussed with patient's fermentation engineer)
ED Attending Note
-
Portions of this chart may have been created with voice recognition software.� Occasional wrong word or��sound alike� substitutions may have occurred due to the inherent limitations of voice recognition software.
Discharge Plan
Departure
Patient Disposition: Home (Routine Discharge)
Date of Disposition: 10/18/24
Time of Disposition: 20:25
Patient with high blood pressure during this ER visit?: No
Discharge Problem:
Hyperglycemia
Instructions: High blood sugar in adults - ED discharge instructions
Prescriptions:
New
insulin glargine [Lantus Solostar U-100 Insulin] 100 unit/mL (3 mL) insulin pen
10 unit SC BID Qty: 15 0RF
No Action
ferrous sulfate [FeroSul] 325 mg (65 mg iron) Tablet
325 mg PO DAILY 60 Days Qty: 60 0RF
pantoprazole 40 mg Tablet,Delayed Release (Dr/Ec)
40 mg PO BID 30 Days Qty: 60 0RF
lisinopril 10 mg Tablet
10 mg PO DAILY Qty: 30 0RF
calcium carbonate [Calcium Antacid] 200 mg calcium (500 mg) Tablet,Chewable
400 mg PO Q4HPRN PRN (Reason: indigestion) 30 Days Qty: 30 0RF
insulin glargine U-300 conc [Toujeo Max U-300 SoloStar] 300 unit/mL (3 mL) Insulin Pen
20 unit SC HS
ergocalciferol (vitamin D2) [Vitamin D2] 1,250 mcg (50,000 unit) Capsule
1,250 mcg PO WE
insulin lispro 100 unit/mL Solution
1 - 10 sliding scale dose SC AC
ondansetron 4 mg tablet,disintegrating
4 mg PO Q8H PRN (Reason: nausea and vomiting) Qty: 10 0RF
metoclopramide HCl [Reglan] 10 mg tablet
10 mg PO Q8HPRN PRN (Reason: nausea and vomiting) Qty: 14 0RF
Referrals:
Marcela Maki MD [Non-Admitting Privileges, Endocrinology] - Follow up in 5-7 days
Activity Restrictions/Additional Instructions:
After speaking with your fermentation engineer they recommended adjusting your insulin regimen to try and better control your blood sugars�instead of 18 units of long-acting insulin (Lantus) at night, they recommended splitting your long-acting insulin
and taking 10 units of long-acting insulin in the morning and 10 units of long-acting insulin at night. They recommended calling the office to try and facilitate transition back to insulin pump.
Thank you for visiting the Emergency Department at [facility].
1. Please schedule a follow up appointment as directed. Call first thing tomorrow morning to make an appointment.
2. If indicated, please take your medications as instructed and indicated on discharge paperwork.
3. If any of your symptoms do not improve, or persist, or become more severe within 6-12 hours, please return to the emergency department for further care.
4. Please return to the emergency department if you develop a headache, neck pain/stiffness, fever greater than 100.4F, chest pain, shortness of breath, persistent nausea, vomiting, slurred speech, difficulty walking, numbness/tingling, weakness,
signs of infection or any other symptoms that are worrisome to you.
Please call [phone] if you have any questions.
Interventions
Interventions:
*Risk Screen - Suicide Last Done: 10/18/24 17:13
*General Assessment Last Done: 10/18/24 17:13
*Neglect/Abuse Screening Last Done: 10/18/24 19:52
*ED- Fall Risk Assessment Last Done: 10/18/24 19:52
*ED COVID-19 Vaccine History Last Done: 10/18/24 19:52
ED- Neurological Assessment Last Done: 10/18/24 20:00
Discharge Date and Time
Print Language: KAZAKH
[2024-10-18 20:03] LABS: Glucose - Point of Care 70 mg/dl (70-99)
== END 2024-10-18 20:46 | disposition home or self-care (01) ==
LOC: EMR 17:02
PROVIDERS: Emergency Medicine; EMERGENCY PHYSICIAN Emergency Medicine
DX: E11.65 Type 2 diabetes mellitus with hyperglycemia (principal); F41.9 Anxiety disorder, unspecified; I10 Essential (primary) hypertension; E78.5 Hyperlipidemia, unspecified; D50.9 Iron deficiency anemia, unspecified; F17.290 Nicotine dependence, other tobacco product, uncomplicated; Z87.19 Personal history of other diseases of the digestive system; Z79.4 Long term (current) use of insulin; Z91.048 Other nonmedicinal substance allergy status
CPT/HCPCS: 99283; 80053; 82010; 82805; 82962; 85025

== ENCOUNTER 2025-01-01 07:34 | Emergency (ER) | payer BC, SELFPAY ==
[2025-01-01] VITALS (8 sets, daily range): BP systolic 111–193; BP diastolic 70–95; BMI 25.6
[2025-01-01 07:46] LABS: Glucose - Point of Care 137 mg/dl (70-99)
[2025-01-01] MEDS: NSS 1000 IV (10:19)
[2025-01-01] MEDS: ZOFRAN 4 MG IV (10:20)
[2025-01-01] MEDS: DILAUDID 1 MG IV (10:23)
--- NOTE | 2025-01-01 10:23 | ED.GENMED ---
History of Present Illness
General
Chief Complaint: Abdominal Symptoms
Source: patient and spouse
Exam Limitations: none
Time Seen by Provider: 01/01/25 09:58
History of Present Illness
History of Present Illness:
29-year-old female recurrent nausea vomiting abdominal pain since last evening. Recurrent issues of same in the past. Blood sugars have been reasonable. No urinary symptoms. Slightly loose stool today. No respiratory symptoms.
Past History
Past History
ED Past Medical History: HTN, IDDM, Psychiatric (Anxiety) and Other (Gastritis)
ED Past Surgical History: Other (Adenoidectomy)
Social History
Tobacco: Non-smoker
Alcohol: Occasional
Drug: Marijuana (daily)
Personal:
Living: with family
Employment: Employed
Family History
Family History: Diabetes
Review of Systems
Review of Systems
All Other Systems: Not applicable
Constitutional: Reports chills; Denies fever
Respiratory: Reports no symptoms
: Reports no symptoms
Phy Exam
Physical Exam
Physical Exam:
GENERAL: Alert and oriented. Nontoxic but appears uncomfortable. Some tremors at times
EYE: Orbits normal.
NECK: Supple
CARDIAC: Regular rate and rhythm without any obvious murmurs.
LUNGS: Clear breath sounds,normal
ABDOMEN: Soft, decreased bowel sounds diffusely. No distention. Diffuse tenderness nonlocalizing. No rebound or guarding no mass or hernia
NEUROLOGICAL: Alert and oriented , grossly non-focal
SKIN: Warm and dry, no rash or lesion, no discoloration, skin intact.
MUSCULOSKELETAL: No edema,no deformity.Good color
PSYCH: Normal and appropriate interaction.
Course
Orders/Labs/Results
Orders:
Orders
01/01/25 10:07
CT Abd/Pel (IV only)-DH only Urgent
Comment:
Reason For Exam: Diffuse abdominal pain/vomiting
Cardiac Monitoring- Treatment ONCE
IV Insert/Care/Rem.- Treatment PRN
0.9% Sodium Chloride 1000 ml [Nss] 1,000 ml IV BOLUS
Ondansetron Injectable [Zofran] 4 mg IV NOW STA
Test Result ONCE
Pulse Ox/cont/shift [RESP] Stat
Quantity: 1
01/01/25 10:08
Electrocardiogram (*1) Stat
Reason for Study: Abdominal Pain
EKG- Treatment ONCE
01/01/25 10:12
HYDROmorphone [Dilaudid] 1 mg IV NOW STA
01/01/25 10:25
B-Hydroxybutyrate Urgent
Complete Blood Count/With Diff Urgent
Comprehensive Metabolic Panel Urgent
HCG, Serum Qualitative Screen Urgent
Lipase Urgent
01/01/25 11:06
Dextrose 5%/0.9%Sodchl 1000 ml [D5/0.9% Sodium Chloride] 1,000 ml IV 150 mls/hr
01/01/25 12:09
Urinalysis Reflex To Culture Urgent
Date Specimen was Collected: 01/01/25
Time Specimen was Collected: 12:08
Urine Microscopic Reflex Cult Urgent
01/01/25 12:43
Ketorolac [Toradol] 15 mg .ROUTE .STK-MED ONE
01/01/25 12:46
Ketorolac [Toradol] 15 mg IV NOW STA
Abnormal Lab Results
01/01/25 01/01/25 08
07:45 10:25 12:09
WBC 17.5 H 10^3/uL
(4.8-10.8)
Hgb 10.7 L g/dL
(12.0-16.0)
Hct 34.0 L %
(37.0-47.0)
MCV 73.4 L fL
(81.0-99.0)
MCH 23.1 L pg
(27.0-31.0)
MCHC 31.5 L g/dL
(33.0-37.0)
RDW 16.4 H %
(11.5-14.5)
Abs Immat Gran (auto) 0.1 H 10^3/uL
(0-0.05)
Absolute Neuts (auto) 15.5 H 10^3/uL
(1.4-6.5)
Absolute Lymphs (auto) 1.0 L 10^3/uL
(1.2-3.4)
Absolute Monos (auto) 0.9 H 10^3/uL
(0.1-0.6)
Neutrophils % 88.5 H %
(42.2-75.2)
Lymphocytes % 5.5 L %
(20.5-51.1)
Calcium 10.4 H mg/dl
(8.4-10.2)
AST 44 H U/L
(14-36)
Alkaline Phosphatase 147 H U/L
(38-126)
Total Protein 8.4 H g/dl
(6.3-8.2)
Urine Ketones 2+ A
(Negative)
Ur Occult Blood Reflex 2+ A
(Negative)
Urine Bacteria (Reflex) Few A
(Negative)
Urine Albumin (Reflex) 3+ A
(Neg - Trace)
B-Hydroxybutyrate 0.53 H mmol/L
(0.02-0.27)
POC Glucose 137 H mg/dl
(70-99)
01/01/25 10:25
01/01/25 10:25
Vital Signs
Initial and Last Documented VS:
Initial Vital Signs
Temp Pulse Resp BP Pulse Ox
98.1 F 68 22 154/95 97
01/01/25 07:39 01/01/25 07:39 01/01/25 07:39 01/01/25 07:39 01/01/25 07:39
Last Documented Vital Signs
Temp Pulse Resp BP Pulse Ox
98.1 F 54 14 150/77 100
01/01/25 07:39 01/01/25 14:00 01/01/25 14:00 01/01/25 14:00 01/01/25 14:00
MDM/Problems Addressed
Differential Diagnosis Includes:
Patient with recurrent vomiting abdominal pain. History of same. Consideration will be bowel obstruction, other acute surgical issue including pancreatitis gastritis cholecystitis. Doubt appendicitis. DKA consideration. Fluids labs pain
management nausea management. With her diffuse tenderness warrants repeat CT scan. Patient does use marijuana daily. This could be associated with a cyclical vomiting issue.
*Radiology
Radiology exam reviewed: radiology read reviewed (Mild fluid distention stomach and duodenum. Nonspecific gastroenteritis. No other acute findings. Right ovary with follicle/fullness.)
*Pulse Oximetry
SaO2: 97
Oxygen Mode of Delivery: Room air
Patient hypoxic: no
*EKG
Interpreted by ED Provider?: Yes
Interpretation: abnormal
Comparison EKG: changes noted
Heart Rate: 52
Rate: bradycardiac
Rhythm: sinus
[place]: normal axis
Interval: normal interval
QRS Pattern: normal QRS
Ischemia: no ischemia
*Critical Care Note
Total Time (30-74mins, 75-104mins- exclusive of procedures): Not Applicable
Data Reviewed
Review of Other/Old Records Reveals: Labs, Records and Testing
Update Note
Update Note:
1105.... Patient looks and feels much better. She is much more alert. She is nontoxic-appearing. We discussed her leukocytosis which has been a recurring issue likely reactive. Her blood sugar is only 75. She did take her insulin this morning.
We will give some D5 normal saline solution. Await CT scan which was also discussed both the pluses and minuses. Low suspicion for any significant DKA.
1445... Patient rechecked multiple times. She is doing very well at this time. She is eating applesauce she is in no distress. She feels much better. Blood sugar is 98. Beta hydroxybutyrate was trace elevated but I do not feel she is in acute
diabetic ketoacidosis. Her bicarb is normal her blood sugars are normal she has been taking her insulin. She feels well enough to go home. I am comfortable with this approach. She does have a copy of her CT report to follow-up the follicular cyst
ED Attending Note
-
Portions of this chart may have been created with voice recognition software.� Occasional wrong word or��sound alike� substitutions may have occurred due to the inherent limitations of voice recognition software.
Discharge Plan
Departure
Patient Disposition: Home (Routine Discharge)
Date of Disposition: 01/01/25
Time of Disposition: 14:45
Patient with high blood pressure during this ER visit?: Yes
Discharge Problem:
Abdominal pain/vomiting, IDDM
Instructions: Nausea and Vomiting, Adult (DC), Abdominal Pain, BLOOD PRESSURE
Prescriptions:
New
ondansetron 4 mg tablet,disintegrating
4 mg PO TIDPRN PRN (Reason: nausea/vomiting) Qty: 10 0RF
No Action
ferrous sulfate [FeroSul] 325 mg (65 mg iron) Tablet
325 mg PO DAILY 60 Days Qty: 60 0RF
pantoprazole 40 mg Tablet,Delayed Release (Dr/Ec)
40 mg PO BID 30 Days Qty: 60 0RF
lisinopril 10 mg Tablet
10 mg PO DAILY Qty: 30 0RF
calcium carbonate [Calcium Antacid] 200 mg calcium (500 mg) Tablet,Chewable
400 mg PO Q4HPRN PRN (Reason: indigestion) 30 Days Qty: 30 0RF
ergocalciferol (vitamin D2) [Vitamin D2] 1,250 mcg (50,000 unit) Capsule
1,250 mcg PO WE
insulin lispro 100 unit/mL Solution
1 - 10 sliding scale dose SC AC
ondansetron 4 mg tablet,disintegrating
4 mg PO Q8H PRN (Reason: nausea and vomiting) Qty: 10 0RF
metoclopramide HCl [Reglan] 10 mg tablet
10 mg PO Q8HPRN PRN (Reason: nausea and vomiting) Qty: 14 0RF
insulin glargine [Lantus Solostar U-100 Insulin] 100 unit/mL (3 mL) insulin pen
10 unit SC BID Qty: 15 0RF
Referrals:
Laci Posadas MD [Family Provider, Family Practice] - Follow up in 2-3 days
Stand Alone Forms: Return to Work
Activity Restrictions/Additional Instructions:
Light diet for the next 24 hours
Continue to watch your blood sugars closely
Follow-up the CAT scan finding of your ovary with an outpatient ultrasound at some point
Return with any concerning symptoms including diabetic issues recurring abdominal pain recurring vomiting etc.
Interventions
Interventions:
*Risk Screen - Suicide Last Done: 01/01/25 07:39
*General Assessment Last Done: 01/01/25 07:39
*Neglect/Abuse Screening Last Done: 01/01/25 07:39
*ED- Fall Risk Assessment Last Done: 01/01/25 10:30
*ED COVID-19 Vaccine History Last Done: 01/01/25 10:30
FM-Noyidf-Onxfrctyfk Assessment Last Done: 01/01/25 10:30
Discharge Date and Time
Print Language: MALAYSIAN
--- NOTE | 2025-01-01 10:27 | EDRN ---
Pt desats when asleep
[2025-01-01 10:31] LABS: Hematocrit 34.0 % (37.0-47.0); Hemoglobin 10.7 g/dL (12.0-16.0); Mean Corp Hgb Conc. 31.5 g/dL (33.0-37.0); Mean Corpuscular Volume 73.4 fL (81.0-99.0); Nucleated Red Blood Cells % 0 %; Platelet Count 374 10^3/uL (130-400); Red Cell Dist. Width 16.4 % (11.5-14.5)
[2025-01-01 10:51] LABS: HCG, Serum Qualitative Screen Negative
[2025-01-01 10:57] LABS: ALT (SGPT) 26 U/L (0-35); AST (SGOT) 44 U/L (14-36); Albumin 4.7 g/dl (3.5-5.0); Alkaline Phosphatase 147 U/L (38-126); Blood Urea Nitrogen 15 mg/dl (7-17); Calcium 10.4 mg/dl (8.4-10.2); Carbon Dioxide 28 mmol/L (22-30); Chloride 101 mmol/L (98-107); Estimated Creatinine Clearance 103 ml/min; Lipase 64 U/L (23-300); Potassium 4.0 mmol/L (3.5-5.1); Sodium 140 mmol/L (135-145); Total Protein 8.4 g/dl (6.3-8.2); eGFR > 60.00
[2025-01-01 10:59] LABS: Glucose 75 mg/dl (70-99)
[2025-01-01] MEDS: D5/0.9% SODIUM CHLORIDE 1000 IV (11:11)
[2025-01-01 12:21] LABS: Urine Character Clear (Clear)
[2025-01-01 12:45] LABS: Urine Red Blood Cell 0-2 /HPF (0-2); Urine White Cell 0-2 /HPF (0-5)
[2025-01-01] MEDS: TORADOL 15 MG IV (12:46)
[2025-01-01 14:32] LABS: Glucose - Point of Care 97 mg/dl (70-99)
== END 2025-01-01 15:11 | disposition home or self-care (01) ==
LOC: EMR 07:34
PROVIDERS: EMERGENCY PHYSICIAN Emergency Medicine; FAMILY PHYSICIAN Family Medicine
DX: R10.9 Unspecified abdominal pain (principal); R11.2 Nausea with vomiting, unspecified; E11.9 Type 2 diabetes mellitus without complications; Z79.4 Long term (current) use of insulin; I10 Essential (primary) hypertension
CPT/HCPCS: 96374; 96361; 99284; 96375; 74177; 80053; 81003; 81015; 82010; 82962; 83690; 84703; 85025; 93005; Q9967

== ENCOUNTER 2025-01-02 17:54 | Inpatient (IN) | payer OTHER, SELFPAY ==
[2025-01-02 12:27] VITALS: BP 155/100
[2025-01-02 12:34] LABS: Glucose - Point of Care 111 mg/dl (70-99)
[2025-01-02 12:50] LABS: Hematocrit 35.8 % (37.0-47.0); Hemoglobin 11.0 g/dL (12.0-16.0); Mean Corp Hgb Conc. 30.7 g/dL (33.0-37.0); Mean Corpuscular Volume 74.1 fL (81.0-99.0); Nucleated Red Blood Cells % 0 %; Platelet Count 383 10^3/uL (130-400); Red Cell Dist. Width 16.6 % (11.5-14.5)
[2025-01-02 13:04] LABS: AST (SGOT) 40 U/L (14-36); Albumin 4.6 g/dl (3.5-5.0); Alkaline Phosphatase 139 U/L (38-126); Blood Urea Nitrogen 10 mg/dl (7-17); Calcium 9.5 mg/dl (8.4-10.2); Carbon Dioxide 28 mmol/L (22-30); Chloride 99 mmol/L (98-107); Glucose 102 mg/dl (70-99); Lipase 249 U/L (23-300); Potassium 3.5 mmol/L (3.5-5.1); Sodium 137 mmol/L (135-145); Total Protein 8.0 g/dl (6.3-8.2); eGFR > 60.00
[2025-01-02 13:14] LABS: ALT (SGPT) 31 U/L (0-35)
[2025-01-02] MEDS: NSS 1000 IV ×2 (14:31→20:39)
[2025-01-02] MEDS: BENADRYL 25 MG IV (14:31)
[2025-01-02] MEDS: REGLAN 10 MG IV ×2 (14:32→19:52)
[2025-01-02] MEDS: TORADOL 15 MG IV (14:32)
--- NOTE | 2025-01-02 14:33 | ED.GENMED ---
History of Present Illness
General
Chief Complaint: Abdominal Symptoms
Source: patient
Exam Limitations: none
Time Seen by Provider: 01/02/25 14:00
Nursing documentation reviewed up to this point in time: agreed with
History of Present Illness
History of Present Illness:
29-year-old female with history of type 1 diabetes who is presenting with intractable nausea, vomiting as well as diffuse abdominal pain. Patient was seen in the emergency department yesterday with similar symptoms, had negative workup, improvement
in symptoms and was discharged home. Unfortunately�patient states she woke up at 3 AM with return of symptoms including episodes of vomiting, along with diffuse abdominal pain. The symptoms been persistent since. She has been unable to tolerate
any p.o. food/liquid. She reports a severe pain throughout her entire abdomen not improved with Motrin at home.
Patient denies any associated fever, diarrhea/constipation, or urinary symptoms.
She does report daily marijuana use although states she has 'cut back recently'. She has a history of similar symptoms which was at 1 point attributed to cannabis hyperemesis. No known sick contacts
Past History
Past History
ED Past Medical History: HTN, IDDM, Psychiatric (Anxiety) and Other (Gastritis)
ED Past Surgical History: Other (Adenoidectomy)
Social History
Tobacco: Non-smoker
Alcohol: Occasional
Drug: Marijuana (daily)
Personal:
Living: with family
Employment: Employed
Family History
Family History: Diabetes
Review of Systems
Review of Systems
Allergies reviewed?: Yes
All Other Systems: ROS reviewed and negative except as documented in HPI and ROS
Phy Exam
Physical Exam
Physical Exam:
Vitals: Hypertensive on arrival, afebrile with otherwise stable vital signs
General: Patient is actively retching on initial evaluation.
Skin: Warm and dry, no rashes or lesions
Head: Normocephalic, atraumatic
Eyes: Sclera nonicteric.
Throat: Protecting airway
Neck: Normal ROM, no cervical spine tenderness, no meningismus
Cardiac: Regular rate and rhythm, no murmurs.
Pulm: Normal respiratory effort, no wheezes, rales, rhonchi heard on exam
Abdomen: Abdomen soft. Mild diffuse tenderness without rebound tenderness or guarding. No area of focal tenderness.
Extremities: No evidence of cyanosis or edema.
Neuro: AAOx3. Grossly intact.
Psychiatric: Normal affect.
Course
Orders/Labs/Results
Orders:
Orders
01/02/25 12:40
CMP [Comprehensive Metabolic Panel] Urgent
Complete Blood Count/With Diff Urgent
HCG, Serum Qualitative Screen Urgent
Comment: ADD ON
Lipase Urgent
01/02/25 14:18
Add On- LAB Urgent
Tests Added?: serum hcg, qual
0.9% Sodium Chloride 1000 ml [Nss] 1,000 ml IV BOLUS
Diphenhydramine [Benadryl] 25 mg IV NOW STA
Ketorolac [Toradol] 15 mg IV NOW STA
Metoclopramide [Reglan] 10 mg IV NOW STA
01/02/25 14:22
Electrocardiogram (*1) Urgent
Reason for Study: QTc Monitoring
EKG- Treatment ONCE
01/02/25 Dinner
NPO
Allow oral meds: Yes
Allow clear liquids: Sips of Clears
01/02/25 16:08
Ondansetron Injectable [Zofran] 4 mg IV NOW STA
01/02/25 17:29
Admit/Transfer Patient As Directed
Co-Sign Provider:
Level of Care: Inpatient admission
Assign to:: Medical/Surgical
Physician / Group: wally
Diagnosis: gastroenteritis/marijuana hyperemesis
Reason for Hospitalization: gastroenteritis/marijuana hyperemesis
Expected length of stay greater than two midnights?: Yes
ELOS- Estimated Length of Stay in days: 2
I certify the patient meets the requirements for IP care: Yes
01/02/25 17:30
Code Status As Directed
Resuscitation Status: Full Code
PRN Pain Medication Management As Directed
May give lesser potent ordered pain med per pt: Yes
preference::
Protocol:: Medication orders for pain may be administered in a
manner that supports deferring to patient preference
when the pt is:
- Requesting an ordered lesser potent pain medication.
Least to most potent pain medications are defined
as: acetaminophen < NSAID < tramadol < opioids
(morphine, oxycodone, hydromorphone).
- Requesting a lesser dose of the same medication IF
ORDERED.
- Requesting a less intrusive route of administration
if both routes are prescribed by the provider (PO <
IV).
01/02/25 19:27
0.9% Sodium Chloride 1000 ml [Nss] 1,000 ml IV 100 mls/hr
Dextrose 50%-Water [Dextrose 50% Syringe] 12.5 grams IV [id number] PRN
Glucagon [GlucaGen] 1 mg IM PRN PRN
HYDROmorphone [Dilaudid] 0.5 mg IV Q4HPRN PRN
Metoclopramide [Reglan] 10 mg IV Q6HPRN PRN
Ondansetron Injectable [Zofran] 4 mg IV Q6HPRN PRN
01/02/25 19:27
Activity As Directed
Activity Level: As Tolerated
Bedside Glucose Monitoring As Directed
Frequency: AC&HS
Additional Instructions:: Change to q6h if pt on TPN, tube feeding or not eating
Vital Signs As Directed
Frequency: Per unit guidelines
DX Deep Vein Thrombosis Video Routine
01/02/25 20:00
Heparin 5,000 units SC Q12
Insulin Aspart Corrective Low [Novolog Flexpen-Low Resistance] See Protocol SC Q6
01/03/25 06:00
Complete Blood Count/With Diff IN AM
Comprehensive Metabolic Panel IN AM
Glycohemoglobin (HgbA1c) IN AM
Abnormal Lab Results
01/02/25 01/02/25
12:32 12:40
WBC 17.9 H 10^3/uL
(4.8-10.8)
Hgb 11.0 L g/dL
(12.0-16.0)
Hct 35.8 L %
(37.0-47.0)
MCV 74.1 L fL
(81.0-99.0)
MCH 22.8 L pg
(27.0-31.0)
MCHC 30.7 L g/dL
(33.0-37.0)
RDW 16.6 H %
(11.5-14.5)
Abs Immat Gran (auto) 0.1 H 10^3/uL
(0-0.05)
Absolute Neuts (auto) 15.3 H 10^3/uL
(1.4-6.5)
Absolute Monos (auto) 0.9 H 10^3/uL
(0.1-0.6)
Neutrophils % 85.5 H %
(42.2-75.2)
Lymphocytes % 8.6 L %
(20.5-51.1)
Glucose 102 H mg/dl
(70-99)
AST 40 H U/L
(14-36)
Alkaline Phosphatase 139 H U/L
(38-126)
POC Glucose 111 H mg/dl
(70-99)
01/02/25 12:40
01/02/25 12:40
Vital Signs
Initial and Last Documented VS:
Initial Vital Signs
Temp Pulse Resp BP Pulse Ox
99.2 F 72 16 155/100 100
01/02/25 12:27 01/02/25 12:27 01/02/25 12:27 01/02/25 12:27 01/02/25 12:27
Last Documented Vital Signs
Temp Pulse Resp BP Pulse Ox
100.3 F 67 20 129/73 98
01/02/25 19:33 01/02/25 19:33 01/02/25 19:33 01/02/25 19:33 01/02/25 19:33
MDM/Problems Addressed
Differential Diagnosis Includes:
Not limited to: Viral gastroenteritis, cyclical vomiting secondary to cannabis use, DKA, acute dehydration, etc.
MDM/Problems Addressed:
29-year-old female with intractable nausea and vomiting, as well as diffuse abdominal pain. Seen yesterday in ED with similar symptoms and discharged with reassuring work up. No known fever, change in bowel habits, or urinary complaints. Vitals and
exam as above.
Patient actively retching, however, non-toxic appearing. Abdomen soft with diffuse tenderness. I did review CT scan performed yesterday without acute findings.
Labs obtained prior to my evaluation, which reveals leukocytosis stable since yesterday. I suspect this is likely reactive from vomiting. Chemistry unremarkable. No acidosis or evidence of DKA.
I suspect patients symptoms likely secondary to cannabis hyperemesis vs viral etiology. Do not suspect acute abdominal infection. Will treat symptoms and reassess.
Update: Patient has had persistent abdominal pain and significant nausea despite pain medicine as well as multiple rounds of IV antiemetics. She is unable to tolerate oral intake. At this point � well admit patient for further management. Patient
accepted to hospital service in stable condition.
Chronic conditions affecting care:
Type 1 diabetes
Acute Exacerbation and/or Progression of Chronic Illness:
N/A
*Pulse Oximetry
SaO2: 100
Oxygen Mode of Delivery: Room air
Patient hypoxic: no
*EKG
Interpreted by ED Provider?: Yes
EKG Intrepretation Date: 01/02/25
Interpretation: normal
Comparison EKG: no changes
Heart Rate: 73
Rate: normal
Rhythm: sinus arrhythmia
[place]: normal axis
Interval: normal QT interval
QRS Pattern: normal QRS
Ischemia: no ischemia
*Liquid Loader Interpretation
Rate: Liquid Loader- N/A
*Critical Care Note
Total Time (30-74mins, 75-104mins- exclusive of procedures): Not Applicable
Data Reviewed
Review of Other/Old Records Reveals: Labs (Labs obtained yesterday in ED 01/01/2025 leukocytosis 17.5, anemia with hemoglobin 10.7; CT abdomen/pelvis performed 01/01/2025 with possible gastroenteritis, no convincing findings of acute appendicitis)
ED Attending Note
-
Portions of this chart may have been created with voice recognition software.� Occasional wrong word or��sound alike� substitutions may have occurred due to the inherent limitations of voice recognition software.
Discharge Plan
Departure
Patient Disposition: Admit
Date of Disposition: 01/02/25
Time of Disposition: 17:08
Presentation/result/management discussed w/ accepting MD/DO: Hospitalist
Discharge Problem:
Intractable nausea and vomiting
Interventions
Interventions:
*Risk Screen - Suicide Last Done: 01/02/25 12:27
*General Assessment Last Done: 01/02/25 14:44
*Neglect/Abuse Screening Last Done: 01/02/25 12:27
*ED- Fall Risk Assessment Last Done: 01/02/25 14:44
*ED COVID-19 Vaccine History Last Done: 01/02/25 19:45
*Nursing Disposition Last Done: 01/02/25 19:20
MX-Scabed-Nwqmwbcxeg Assessment Last Done: 01/02/25 14:40
Discharge Date and Time
Discharge Date/Time: 01/02/25 19:20
[2025-01-02 14:43] VITALS: BP 138/71
[2025-01-02 15:12] LABS: HCG, Serum Qualitative Screen Negative
[2025-01-02] MEDS: ZOFRAN 4 MG IV ×2 (16:36→22:28)
--- NOTE | 2025-01-02 17:33 | HPS.HSE ---
Family Physician
-
Family Physician: MAGY Layton
Chief Complaint
-
vomiting
History of Present Illness
29-year-old female past medical history of type 1 diabetes, prior DKA, cannabis hyperemesis syndrome, hypertension, chronic microcytic anemia presenting with intractable nausea and vomiting and diffuse abdominal pain for the past 2 days. She did
have diarrhea until yesterday but this has resolved. Does have chills. Denies urinary symptoms.
She went [place] over the weekend and had meatballs. Not sure if there were any other sick contacts there.
She was seen in the emergency room yesterday with similar symptoms negative workup. Symptoms improved and she was discharged. She woke up 3 AM with return of symptoms including vomiting, diffuse abdominal pain. She has been unable to tolerate
p.o. She has severe pain throughout the entire abdomen not improved with Motrin.
She last used marijuana few days ago. She drinks alcohol occasionally. Denies smoking.
She has a history of cannabis hyperemesis syndrome. She was admitted here in September for DKA.
Medical History
Past Medical History
Past Medical History: Reports Other (type 1 diabetes, prior DKA, cannabis hyperemesis syndrome, hypertension, chronic microcytic anemia)
Past Surgical History: Reports None
Social History
Tobacco: Non-smoker
Alcohol: Occasional
Drug: Marijuana
Family History
Family History: Not pertinent
Allergies / Home Medications
Allergies reflects when Allergies were last updated in [facility].
Home Medications with original date entered in [facility]
Allergy/Medication List:
Allergies
Allergy/AdvReac Type Severity Reaction Status Date / Time
nickel Allergy Rash Verified 01/02/25 14:18
Home Medications
calcium carbonate (Calcium Antacid) 400 mg (2 x 200 mg calcium (500 mg)) PO Q4HPRN PRN indigestion 30 days #30 tabs 06/15/24
ferrous sulfate 325 mg (65 mg iron) tablet (FeroSul) 325 mg PO DAILY 60 days #60 tabs 06/15/24
lisinopril 10 mg tablet 10 mg PO DAILY #30 tabs 06/15/24
pantoprazole 40 mg tablet,delayed release 40 mg PO BID 30 days #60 tabs 06/15/24
ergocalciferol (vitamin D2) 1,250 mcg (50,000 unit) capsule (Vitamin D2) 1,250 mcg PO WE 07/27/24
insulin lispro 100 unit/mL subcutaneous solution 1 - 10 sliding scale dose SC AC 07/27/24
ondansetron 4 mg disintegrating tablet 4 mg PO Q8H PRN nausea and vomiting #10 tabs 07/27/24
metoclopramide HCl 10 mg tablet (Reglan) 10 mg PO Q8HPRN PRN nausea and vomiting #14 tabs 09/18/24
insulin glargine 100 unit/mL (3 mL) subcutaneous pen (Lantus Solostar U-100 Insulin) 10 unit (0.1 mL) SC BID #15 mL 10/18/24
ondansetron 4 mg disintegrating tablet 4 mg PO TIDPRN PRN nausea/vomiting #10 tabs 01/01/25
Review of Systems
-
Constitutional: Reports No Symptoms
EENT: Reports No Symptoms
Respiratory: Reports No Symptoms
Cardiac: Reports No Symptoms
Abdomen/GI: Reports See HPI
: Reports No Symptoms
Musculoskeletal: Reports No Symptoms
Skin: Reports No Symptoms
Neurological: Reports No Symptoms
Endocrine: Reports No Symptoms
Hematologic/Lymphatic: Reports No Symptoms
Psych: Reports No Symptoms
Physical Exam
Vital Signs
Vital Signs
Temp Pulse Resp BP Pulse Ox
98.9 F 74 16 138/71 100
01/02/25 14:43 01/02/25 14:43 01/02/25 14:43 01/02/25 14:43 01/02/25 14:43
Physical Exam
General: Well Developed, Well Nourished and No Apparent Distress
HEENT: NormoCephalic, Moist mucous membranes and Atraumatic
Respiratory: Clear
Cardiac: S1/S2 and Regular Rhythm; No Murmur or Rub
GI: Soft, Non Distended, Normal Bowel Sounds and Tender (diffusely ); No Organomegaly
Rectal: Deferred by Provider
Musculoskeletal: No Clubbing, No Cyanosis and No Edema
Skin: No Rash
Neuro: Nonfocal/grossly intact
Laboratory Results
-
01/02/25 12:40
01/02/25 12:40
Laboratory Results
Total Bilirubin 0.7 mg/dl (0.2-1.3) 01/02/25 12:40
AST 40 U/L (14-36) H 01/02/25 12:40
ALT 31 U/L (0-35) 01/02/25 12:40
Alkaline Phosphatase 139 U/L (38-126) H 01/02/25 12:40
Lipase 249 U/L (23-300) 01/02/25 12:40
Data Reviewed
-
Lab Data: Labs Reviewed by me
Old Records: Reviewed
Impression/Plan
-
IMPRESSION:
PLAN:
# Intractable vomiting/abdominal pain secondary to acute viral gastroenteritis/marijuana hyperemesis
-Leukocytosis of 17 chronic
-No more diarrhea 2 check stool culture
- CT scan abdomen pelvis from yesterday shows mild fluid distention of the stomach and duodenum suggesting mild wall thickening raising possibility of nonspecific gastroenteritis
- IV fluids, Zofran, Reglan,
-As needed Dilaudid
- Continue Protonix
- No signs of DKA
Type 1 diabetes
-Hold insulin glargine until tolerating p.o.
- Insulin sliding scale
Essential hypertension
- Continue lisinopril
Chronic microcytic anemia
- Hemoglobin stable at 11
- Continue ferrous sulfate
Full code
DVT prophylaxis�heparin
N.p.o.
[2025-01-02 17:35] VITALS: BP 121/66
[2025-01-02 19:30] VITALS: BMI 25.1
[2025-01-02 19:33] VITALS: BP 129/73; BMI 25.1
[2025-01-02 19:33] LABS: Glucose - Point of Care 381 mg/dl (70-99)
[2025-01-02] MEDS: NOVOLOG FLEXPEN-LOW RESISTANCE 5 UNITS SC (19:54)
[2025-01-02] MEDS: DILAUDID 0.5 MG IV ×2 (20:05→23:54)
--- NOTE | 2025-01-02 22:24 | PTCARENOTE ---
Patient arrived around 19:24 via stretcher with dx of Gastroenteritis/ Marijuana Hyperemesis. AAAX3. Pleasant and cooperative with care. Nauseous with small amount of emesis on arrival. PRN Reglan given with + results. IVF infusing. Spouse currently
at bedside. Call garcia within reach. Oriented to unit.
[2025-01-02 23:58] VITALS: BP 148/88
[2025-01-03 00:01] LABS: Glucose - Point of Care 379 mg/dl (70-99)
[2025-01-03] MEDS: NOVOLOG FLEXPEN-LOW RESISTANCE 5 UNITS SC (00:01)
[2025-01-03 05:36] LABS: Glucose - Point of Care 293 mg/dl (70-99)
[2025-01-03] MEDS: NSS 1000 IV (05:37)
[2025-01-03] MEDS: NOVOLOG FLEXPEN-LOW RESISTANCE 3 UNITS SC (05:37)
[2025-01-03] MEDS: ZOFRAN 4 MG IV (06:00)
[2025-01-03] MEDS: DILAUDID 0.5 MG IV (06:00)
[2025-01-03 07:38] VITALS: BP 171/96
[2025-01-03 08:38] LABS: Hematocrit 31.7 % (37.0-47.0); Hemoglobin 10.1 g/dL (12.0-16.0); Mean Corp Hgb Conc. 31.9 g/dL (33.0-37.0); Mean Corpuscular Volume 74.6 fL (81.0-99.0); Nucleated Red Blood Cells % 0 %; Platelet Count 353 10^3/uL (130-400); Red Cell Dist. Width 16.8 % (11.5-14.5)
[2025-01-03 09:30] LABS: ALT (SGPT) 20 U/L (0-35); AST (SGOT) 23 U/L (14-36); Albumin 3.7 g/dl (3.5-5.0); Alkaline Phosphatase 140 U/L (38-126); Blood Urea Nitrogen 13 mg/dl (7-17); Calcium 8.5 mg/dl (8.4-10.2); Carbon Dioxide 22 mmol/L (22-30); Chloride 101 mmol/L (98-107); Estimated Creatinine Clearance 90 ml/min; Glucose 287 mg/dl (70-99); Potassium 4.5 mmol/L (3.5-5.1); Sodium 131 mmol/L (135-145); Total Protein 6.7 g/dl (6.3-8.2); eGFR > 60.00
[2025-01-03 10:36] LABS: Glucose - Point of Care 201 mg/dl (70-99)
[2025-01-03] MEDS: LANTUS 0.1 UNITS SC (10:38)
[2025-01-03] MEDS: NOVOLOG FLEXPEN-LOW RESISTANCE 2 UNITS SC ×2 (10:39→14:55)
--- NOTE | 2025-01-03 10:48 | PN.DE.MGMTRT ---
Insulin Management
- -
01/03/2025 Diabetes Management Consult
Patient admitted 01/02 with intractable nausea and vomiting and abdominal pain. Patient known to me from multiple admissions for DKA & abdominal pain. PMH type 1 diabetes, HTN, anxiety, gastritis, cannabis hyperemesis syndrome. Prior to admission
patient states she was taking lantus 10 units in AM and 10 units in pm with SS for each meal. Last A1C 09/14 was 10.9%. Updated A1C pending, cr .8, eGFR > 60.
Patient is awake alert and oriented no c/o nausea at the time of my visit. States she still sees Dr. Maki, endocrine but she just went on maternity leave. Patient states she stopped using the OmniPod 5 in May 2024.
Glucose at HS 379, fasting this AM 293. Will start Lantus 10 units BID with corrective insulin Q 6 hours as she remains NPO.
Discussed with nurse
Will follow
Diabetes History
- -
Type of Diabetes: 1
Pre-Admission Diabetes Regimen
01/02/25 01/03/25
12:40 08:27
Creatinine 0.8 0.8
Insulin Pump Settings
IP Diabetes Regimen
01/02/25 01/02/25 01/02/25
12:32 12:40 19:31
Glucose 102 H
POC Glucose 111 H 381 H
01/02/25 01/03/25 01/03/25
23:59 05:34 08:27
Glucose 287 H
POC Glucose 379 H 293 H
01/03/25
10:35
Glucose
POC Glucose 201 H
Patient Education
--- NOTE | 2025-01-03 11:41 | CM ---
Addendum entered by Joshua Mendieta 01/03/25 15:31:
Patient will d/c home today
No needs at this time
Original Note:
Initial assessment completed. Patient is a 29-year-old female past medical history of type 1 diabetes, prior DKA, cannabis hyperemesis syndrome, hypertension, chronic microcytic anemia presenting with intractable nausea and vomiting and diffuse
abdominal pain. Was admitted in May this year for DKA.
Patient resides w/ spouse in an apartment, no steps to enter. Patient is independent in all areas, drives, works. Patient has a supportive family.
Address, points of contact and insurance verified
PCP: Jennie Duque
Pharmacy: [facility]
Plan: Home, no needs
[2025-01-03 12:53] LABS: Glucose - Point of Care 157 mg/dl (70-99)
[2025-01-03] MEDS: NSS IV (13:38)
[2025-01-03 14:52] LABS: Glucose - Point of Care 238 mg/dl (70-99)
--- NOTE | 2025-01-03 14:56 | W.PN.HOSP.TC ---
Today's Communication/Plan
-
dc home
Assessment / Plan
Assessment / Plan
Assessment:
Intractable vomiting/abdominal pain secondary to acute viral gastroenteritis/marijuana hyperemesis
Chronic leukocytosis
- CT from 01/01: mild fluid distention of the stomach and duodenum suggesting mild wall thickening raising possibility of nonspecific gastroenteritis
- supportive care
- diet: advance to regular
Type 1 diabetes
- continue Lantus 10 BID and SSI. Patient familiar with SSI as instructed by outpatient [facility] (Dr. Maki)
- OP f/u in 1-2 weeks recommended; patient agreeable
Essential hypertension
- continue lisinopril
Chronic microcytic anemia
- Hemoglobin stable at 11
- continue ferrous sulfate
DVT ppx: SC heparin
Code: Full
Anticipated Discharge: Today
Subjective/Interval History
-
Date of Service: January 03, 2025
nausea/vomiting/abd pain resolved this morning
tolerating clears and now requesting regular diet, discharge
Objective Data
-
Labs:
Laboratory Results
01/03/25
08:27
WBC 20.0 H
Hgb 10.1 L
Hct 31.7 L
Plt Count 353
Sodium 131 L
Potassium 4.5 D
Chloride 101
Carbon Dioxide 22
BUN 13
Creatinine 0.8
Glucose 287 H
Calcium 8.5
Total Bilirubin 1.1
AST 23
ALT 20
Alkaline Phosphatase 140 H
Vital Signs:
Vital Signs
Temp Pulse Resp BP Pulse Ox
98.0 F 61 16 171/96 97
01/03/25 07:38 01/03/25 07:38 01/03/25 07:38 01/03/25 07:38 01/03/25 07:38
I&O
01/02/25 01/03/25 01/04/25
06:59 06:59 06:59
Intake Total 1480 / 1480
Output Total 225 / 225
Balance 1255 / 1255
Physical Exam
-
General: No Apparent Distress
HEENT: Normocephalic and Atraumatic
Respiratory: Negative Wheezes
Cardiac: Regular Rhythm and S1/S2
GI: Soft and Nontender
Musculoskeletal: No Edema
Neuro: AO x 3
Psych: Calm
Data Reviewed
-
Total Time Spent with Patient (in minutes): 42
Labs: Labs Reviewed by me
--- NOTE | 2025-01-03 15:08 | W.DCSUMMARY ---
Discharge Summary
Discharge Data
Date of Admission: 01/02/25
Date of Discharge: 01/03/25
-
Pending Results: No
Hospital Course
29 y/o F, hx of type 1 diabetes who presented to ER 01/03 with ongoing nausea/vomiting/abd pain. She was diagnosed 01/01 at ER with gastroenteritis. There was also concern for hyperemesis in setting of known marijuana use. Patient was admitted to
med-surg and kept NPO with IVF provision. The next day, her symptoms improved and she was able to advance her diet from clears to regular diet without issue. She was seen by the diabetes [facility] team and put back on Lantus BID + SSI for her type 1
Diabetes. Scripts for insulin were provided and patient will follow up with [facility] in 1-2 weeks. She was discharged meño 01/03.
Discharge Plan
-
Patient Disposition: Home (Routine Discharge)
Discharge Diagnosis/Procedures: gastroenteritis, type 1 diabetes
Condition: Fair
Diet: Diabetic, Carb Controlled
Activity: As tolerated
Referrals:
Jennie Duque CRNP [Family Provider]
Marcela Maki MD [Non-Admitting Privileges, Endocrinology] - in one to two weeks
Prescriptions:
New
insulin aspart U-100 [Novolog FlexPen U-100 Insulin] 100 unit/mL (3 mL) Insulin Pen
1 sliding scale dose SC AC Qty: 5 0RF
Rx Instructions:
patient utilizes specific sliding scale as outlined by english and reading instructor.
insulin glargine [Lantus Solostar U-100 Insulin] 100 unit/mL (3 mL) Insulin Pen
10 unit SC BID Qty: 5 0RF
Continued
lisinopril 10 mg Tablet
10 mg PO DAILY Qty: 30 0RF
Patient Comments:
has not taken in month, last filled 06/15/24 #30
ondansetron 4 mg Tablet,Disintegrating
4 mg PO TIDPRN PRN (Reason: nausea)
Discontinued
Patient Own Insulin Pump
1 sliding scale dose SC .VIA INSULIN LISRPO
Discharge Orders:
Discharge Patient (As Directed); Ordered 01/03/25
Ordered By: Maritza Renee
Discharge Date and Time
Print Language: [place]
[2025-01-03] MEDS: NOVOLOG FLEXPEN 7 UNITS SC (15:16)
[2025-01-03 15:22] LABS: Glycohemoglobin (HgbA1c) 9.7 % (4.0-5.6)
[2025-01-03 15:27] VITALS: BP 143/85
== END 2025-01-03 18:06 | disposition home or self-care (01) | DRG 392 ==
LOC: 4 WEST ACU 17:54
PROVIDERS: Student in an Organized Health Care Education/Training Program; ADMITTING PHYSICIAN Hospitalist; ATTENDING PHYSICIAN Internal Medicine; EMERGENCY PHYSICIAN Emergency Medicine; FAMILY PHYSICIAN Nurse Practitioner Family
DX: A08.4 Viral intestinal infection, unspecified (principal); E10.9 Type 1 diabetes mellitus without complications; D50.9 Iron deficiency anemia, unspecified; F41.9 Anxiety disorder, unspecified; I10 Essential (primary) hypertension; F12.90 Cannabis use, unspecified, uncomplicated; Z79.899 Other long term (current) drug therapy
CPT/HCPCS: 80053; 82962; 83036; 83690; 84703; 85025; 93005; 96361; 96374; 96375; 99285

== ENCOUNTER 2025-04-01 05:35 | Emergency (ER) | payer OTHER, SELFPAY ==
[2025-04-01] VITALS (7 sets, daily range): BP systolic 96–168; BP diastolic 59–107; BMI 23.9
[2025-04-01 06:12] LABS: Hematocrit 34.7 % (37.0-47.0); Hemoglobin 11.0 g/dL (12.0-16.0); Mean Corp Hgb Conc. 31.7 g/dL (33.0-37.0); Mean Corpuscular Volume 73.1 fL (81.0-99.0); Nucleated Red Blood Cells % 0 %; Platelet Count 313 10^3/uL (130-400); Red Cell Dist. Width 16.9 % (11.5-14.5)
[2025-04-01 06:20] LABS: HCG, Serum Qualitative Screen Negative
[2025-04-01 06:21] LABS: ALT (SGPT) 20 U/L (0-35); AST (SGOT) 29 U/L (14-36); Albumin 4.6 g/dl (3.5-5.0); Alkaline Phosphatase 126 U/L (38-126); Blood Urea Nitrogen 17 mg/dl (7-17); Calcium 9.8 mg/dl (8.4-10.2); Carbon Dioxide 23 mmol/L (22-30); Chloride 91 mmol/L (98-107); Estimated Creatinine Clearance 80 ml/min; Glucose 355 mg/dl (70-99); Potassium 3.8 mmol/L (3.5-5.1); Sodium 129 mmol/L (135-145); Total Protein 8.0 g/dl (6.3-8.2); eGFR > 60.00
--- NOTE | 2025-04-01 06:22 | ED.GENMED ---
History of Present Illness
General
Chief Complaint: Blood Sugar Problem
Source: patient
Exam Limitations: none
Time Seen by Provider: 04/01/25 05:57
Nursing documentation reviewed up to this point in time: agreed with
History of Present Illness
History of Present Illness:
Patient is a 21-year-old female with past medical history of type 1 diabetes, cannabis hyperemesis syndrome hypertension(admits to noncompliance with Lisonpril) anemia presents to the ER for vomiting. She started vomiting and having diarrhea on
Tuesday. She reports her blood sugars been in the 600s. From reports she last smoked marijuana several days ago. She reports 'Dilautid ' is what she typically receives here for pain here in the hospital however hot showers will work at home
Past History
Past History
ED Past Medical History: HTN, IDDM, Psychiatric (Anxiety) and Other (Gastritis)
ED Past Surgical History: Other (Adenoidectomy)
Social History
Tobacco: Non-smoker
Alcohol: Occasional
Drug: Marijuana (daily)
Personal:
Living: with family
Employment: Employed
Family History
Family History: Diabetes
Phy Exam
General Physical Exam
General Presentation: no apparent distress
General age: appears stated age
General Skin: warm and dry
General Habitus: normal
General Mental: alert
General Hydration: appears well hydrated
Cardiovascular Exam
Cardiovascular Exam: no murmur, normal peripheral pulses and tachycardia
Pulmonary Exam
Pulmonary Exam: lungs clear and no respiratory distress
Musculoskeletal Exam
Musculoskeletal Exam: full ROM
Skin Exam
Skin Exam: normal color and warm/dry
Psychiatric Exam
Psychiatric Exam: normal mood/affect
Sepsis
Sepsis Screening
Sepsis Assessment: Sepsis Ruled Out
Sepsis Screen
Sepsis Screen: Sepsis Ruled Out
Date: 04/01/25
Time: 11:35
Course
Orders/Labs/Results
Orders:
Orders
04/01/25 05:47
IV Insert/Care/Rem.- Treatment PRN
Urinalysis Urgent
Date Specimen was Collected: 04/01/25
Time Specimen was Collected: 05:48
Test Result ONCE
04/01/25 06:01
B-Hydroxybutyrate Urgent
Complete Blood Count/With Diff Urgent
Comprehensive Metabolic Panel Urgent
HCG, Serum Qualitative Screen Urgent
Comment: Notify provider if positive test present
04/01/25 06:29
0.9% Sodium Chloride 1000 ml [Nss] 1,000 ml IV BOLUS
Ondansetron Injectable [Zofran] 4 mg IV NOW STA
04/01/25 06:34
Ketorolac [Toradol] 15 mg IV NOW STA
04/01/25 06:42
Electrocardiogram (*1) Stat
Reason for Study: Other
Other Reason for Exam: chest pain
Cardiac Monitoring- Treatment ONCE
EKG- Treatment ONCE
04/01/25 10:09
Haloperidol Lactate [Haldol] 1 mg IV NOW STA
04/01/25 10:22
Capsaicin [Zostrix-Hp 0.075% Cream] See Dose Instructions TOPICAL NOW STA
Abnormal Lab Results
04/01/25 04/01/25
06:01 09:53
WBC 15.9 H 10^3/uL
(4.8-10.8)
Hgb 11.0 L g/dL
(12.0-16.0)
Hct 34.7 L %
(37.0-47.0)
MCV 73.1 L fL
(81.0-99.0)
MCH 23.2 L pg
(27.0-31.0)
MCHC 31.7 L g/dL
(33.0-37.0)
RDW 16.9 H %
(11.5-14.5)
Abs Immat Gran (auto) 0.1 H 10^3/uL
(0-0.05)
Absolute Neuts (auto) 13.5 H 10^3/uL
(1.4-6.5)
Absolute Monos (auto) 1.1 H 10^3/uL
(0.1-0.6)
Neutrophils % 84.8 H %
(42.2-75.2)
Lymphocytes % 7.3 L %
(20.5-51.1)
Sodium 129 L mmol/L
(135-145)
Chloride 91 L mmol/L
(98-107)
Glucose 355 H mg/dl
(70-99)
B-Hydroxybutyrate 3.95 H mmol/L
(0.02-0.27)
POC Glucose 110 H mg/dl
(70-99)
04/01/25 06:01
04/01/25 06:01
Vital Signs
Initial and Last Documented VS:
Initial Vital Signs
Pulse Resp BP
107 27 168/107
04/01/25 05:46 04/01/25 05:46 04/01/25 05:46
Last Documented Vital Signs
Temp Pulse Resp BP Pulse Ox
98.7 F 74 16 96/59 97
04/01/25 05:53 04/01/25 09:00 04/01/25 10:00 04/01/25 09:00 04/01/25 09:00
MDM/Problems Addressed
MDM/Problems Addressed:
21-year-old female with history of IDDM presents to the ER with nausea vomiting diarrhea that started several days ago. She admits to chronic marijuana use and last use a couple days ago. She has been evaluated here in the ER as well as admitted
to the hospital multiple times over the past several years for hyperemesis related to marijuana. She continues to smoke marijuana. She presented with an elevated blood sugar however bicarb minimally low corrected sodium 135. She received fluids
and Zofran which did initially help patient was able to sleep. Then started vomiting again and was given Haldol and capsaicin cream. This also helped for a while however patient started vomiting again. Pt however wants to go home. I offered
additional fluids/treatment and discussed admission possibility if symptoms persist however she wants to go home. Her blood sugar has decreased. I did educate patient on the importance of stopping marijuana and closely monitoring her sugars and
to take her medicine as prescribed. I recommended close outpatient the family doctor and to return if any worsening of symptoms
Chronic conditions affecting care:
Hypertension noncompliant IDDM Daily marijuana use
*Pulse Oximetry
SaO2: 100
Oxygen Mode of Delivery: Room air
Patient hypoxic: no
*EKG
Interpreted by ED Provider?: Yes
Rate: normal
Rhythm: sinus
Ischemia: no ischemia
*Critical Care Note
Total Time (30-74mins, 75-104mins- exclusive of procedures): Not Applicable
ED Attending Note
-
Portions of this chart may have been created with voice recognition software.� Occasional wrong word or��sound alike� substitutions may have occurred due to the inherent limitations of voice recognition software.
Discharge Plan
Departure
Patient Disposition: Home (Routine Discharge)
Date of Disposition: 04/01/25
Time of Disposition: 11:27
Patient with high blood pressure during this ER visit?: No
Condition: Fair
Covid-19: Not Applicable
Discharge Problem:
Marijuana abuse, continuous, Cannabinoid hyperemesis syndrome, Acute hyperglycemia
Instructions: Cannabis hyperemesis syndrome, High blood sugar in adults - ED (DC)
Prescriptions:
No Action
lisinopril 10 mg Tablet
10 mg PO DAILY Qty: 30 0RF
Patient Comments:
has not taken in month, last filled 06/15/24 #30
ondansetron 4 mg Tablet,Disintegrating
4 mg PO TIDPRN PRN (Reason: nausea)
insulin aspart U-100 [Novolog FlexPen U-100 Insulin] 100 unit/mL (3 mL) Insulin Pen
1 sliding scale dose SC AC Qty: 5 0RF
Rx Instructions:
patient utilizes specific sliding scale as outlined by commercial assistant.
insulin glargine [Lantus Solostar U-100 Insulin] 100 unit/mL (3 mL) insulin pen
18 unit SC BID
Referrals:
Jennie Duque CRNP [Family Provider]
Activity Restrictions/Additional Instructions:
As discussed be sure to stay well-hydrated and continue to closely monitor your blood sugars. take your medicine as previously recommended. As discussed it is recommended that you stop use of marijuana as this is causing you chronic nausea and
vomiting which in turn affects your blood sugar and your diabetes. Please follow-up closely with your family doctor.
Interventions
Interventions:
*Risk Screen - Suicide Last Done: 04/01/25 05:43
*General Assessment Last Done: 04/01/25 05:54
*Neglect/Abuse Screening Last Done: 04/01/25 05:43
*ED- Fall Risk Assessment Last Done: 04/01/25 05:57
*ED COVID-19 Vaccine History Last Done: 04/01/25 05:56
*ED Influenza Vaccine History Last Done: 04/01/25 05:56
WH-Svsttg-Ksqccvbttc Assessment Last Done: 04/01/25 05:58
ED-Musculoskeletal Assessment Last Done: 04/01/25 05:59
ED- Neurological Assessment Last Done: 04/01/25 05:57
Discharge Date and Time
Print Language: EMIRATI
[2025-04-01] MEDS: ZOFRAN 4 MG IV (06:39)
[2025-04-01] MEDS: TORADOL 15 MG IV (06:39)
[2025-04-01] MEDS: NSS 1000 IV (06:40)
[2025-04-01 09:55] LABS: Glucose - Point of Care 110 mg/dl (70-99)
[2025-04-01] MEDS: HALDOL 1 MG IV (10:19)
[2025-04-01] MEDS: ZOSTRIX-HP 0.075% CREAM 1 APPLIC TOPICAL (10:31)
== END 2025-04-01 11:42 | disposition home or self-care (01) ==
LOC: EMR 05:35
PROVIDERS: Emergency Medicine; EMERGENCY PHYSICIAN Emergency Medicine; FAMILY PHYSICIAN Nurse Practitioner Family
DX: R11.16 Cannabis hyperemesis syndrome (principal); F12.10 Cannabis abuse, uncomplicated; E10.65 Type 1 diabetes mellitus with hyperglycemia; I10 Essential (primary) hypertension; Z91.199 Patient's noncompliance with other medical treatment and regimen due to unspecified reason; Z79.4 Long term (current) use of insulin
CPT/HCPCS: 96374; 96375; 96361; 99284; 80053; 82010; 82962; 84703; 85025; 93005